=== PATIENT | male | born 1925 | race Caucasian/White ===

== ENCOUNTER 2016-05-10 10:11 | Day surgery (SDC) | payer OTHER ==
[2016-05-10 10:55] VITALS: BMI 17.6
[2016-05-10] MEDS ORDERED: PROPOFOL 20 ML ONE (10:59)
[2016-05-10] MEDS ORDERED: LIDOCAINE HCL/PF 1% SDV 5ML VIAL ONE (10:59)
[2016-05-10 12:00] VITALS: TEMP 97.3
[2016-05-10 12:59] VITALS: BP 123/60; PULSE 58
--- NOTE | 2016-05-11 15:18 | PATH ---
Surgical Pathology Report Patient Name: ESTEFANI CRUZ [facility] Rec. #: [id number] /Age/Gender: 1925 (Age: 89) / M Account: [id number] Location: [facility]-ENDOSCOPY Taken: 05/10/2016 Received: 05/10/2016 Reported: 05/11/2016 Physicians: Chase Goins D.O. Specimen(s) Received A: BX RIGHT COLON B: BX TRANSVERSE COLON C: BX LEFT & SIGMOID COLON D: BX RECTUM Clinical History Intermittent diarrhea, weight loss, family history of colon cancer Diverticulosis, hemorrhoids and diarrhea Final Diagnosis A. COLON, RIGHT, BIOPSY: COLONIC MUCOSA WITH FEW LAMINA PROPRIA NEUTROPHILS, MILD INCREASED IN EOSINOPHILS AND FOCAL MILD CRYPT REGENERATIVE CHANGES (SEE COMMENT). NO EVIDENCE OF GRANULOMATA OR DYSPLASIA; NO EVIDENCE OF MICROSCOPIC COLITIS; NO GIARDIA IDENTIFIED. B. COLON, TRANSVERSE, BIOPSY: COLONIC MUCOSA WITH REACTIVE LYMPHOID AGGREGATE AND FOCAL MILD REGENERATIVE CHANGES (SEE COMMENT). NO EVIDENCE OF ACTIVE INFLAMMATION, GRANULOMATA OR DYSPLASIA; NO EVIDENCE OF MICROSCOPIC COLITIS; NO GIARDIA IDENTIFIED. C. COLON, LEFT AND SIGMOID, BIOPSY: COLONIC MUCOSA WITH FOCAL MILD ACTIVE COLITIS AND FOCAL MILD REGENERATIVE CHANGES (SEE COMMENT). NO EVIDENCE OF GRANULOMAS OR DYSPLASIA; NO EVIDENCE OF MICROSCOPIC COLITIS; NO GIARDIA IDENTIFIED. D. RECTUM, BIOPSY: RECTAL MUCOSA WITH FEW LAMINA PROPRIA NEUTROPHILS AND FOCAL MILD REGENERATIVE CHANGES (SEE COMMENT). NO EVIDENCE OF GRANULOMA OR DYSPLASIA; NO EVIDENCE OF MICROSCOPIC COLITIS; NO GIARDIA IDENTIFIED. Comment: The findings are nonspecific and may represent mild active colitis of various etiologies including infections, drug/toxin injury and peridiverticular inflammation. Idiopathic bowel disease is less likely. No histologic features of microscopic colitis are identified. Clinical, endoscopic correlations and follow up are suggested. Electronically Signed Cameron Conklin M.D. Addendum Reported: 05/15/2016 Addendum Diagnosis Trichrome stain performed and interpreted on block A1 does not show significant increase in collagen thickness, supporting the interpretation above. Cameron Conklin M.D. Gross Description A. Received in formalin, labeled "biopsy right colon" are 3 farrell, irregular portions of soft tissue ranging from 0.1-0.3 cm in greatest dimension. The specimens are submitted in toto in one cassette. B. Received in formalin, labeled "biopsy transverse colon" are 7 farrell, irregular portions of soft tissue ranging from 0.1-0.3 cm in greatest dimension. The specimens are submitted in toto in one cassette. C. Received in formalin, labeled "biopsy left colon" are 6 farrell, irregular portions of soft tissue ranging from 0.1-0.6 cm in greatest dimension. The specimens are submitted in toto in one cassette. D. Received in formalin, labeled "biopsy rectum" are 3 farrell, irregular portions of soft tissue ranging from 0.1-0.4 cm in greatest dimension. The specimens are submitted in toto in one cassette. 05/10/2016 [facility]05/10/2016
== END 2016-05-10 13:05 | disposition home or self-care (01) ==
LOC: JASU-ENDO 10:11
PROVIDERS: ATTEND Internal Medicine Gastroenterology
PROC: 0DBE8ZX Excision of Large Intestine, Via Natural or Artificial Opening Endoscopic, Diagnostic (ICD-10-PCS; principal; 2016-05-10 11:00)
DX: K57.30 Diverticulosis of large intestine without perforation or abscess without bleeding (principal); R19.7 Diarrhea, unspecified; K63.89 Other specified diseases of intestine
CPT/HCPCS: 87045; 87046; 87177; 87207; 87209; 87328; 87329; 88305-TC; 88313-TC

== ENCOUNTER 2016-07-02 17:42 | Emergency (ER) | payer OTHER ==
--- NOTE | 2016-07-02 17:51 | PDOC ---
History of Present Illness - General History Source: Patient, EMS, Spouse, Old Records Exam Limitations: No Limitations <Radha Cowan - Last Filed: 07/02/16 18:33> - General History Source: Patient, EMS, Spouse, Old Records Exam Limitations: No Limitations - History of Present Illness Initial Comments: 07/02/16 18:43 The patient is an 89 year old male, with a significant past medical history of hypertension and persistent diarrhea (since August 2015), who presents to the emergency department via EMS with right hip pain s/p an unwitnessed fall at approximately 3AM this morning. The patients is at the bedside. She states that she heard the patient call out to her at approximately 3AM this morning that he had fallen and was injured. The patients immediately got out of bed and found the patient on the floor. The patient uses a cane to ambulate at baseline, but his reports that he was not using it early this morning before he fell. The patients reports that the patient has been feeling generally weak over the past couple of days, with a decreased appetite. She additionally reports that the patient has been experiencing intermittent persistent diarrhea since August 2015, for which the patient has been worked up for with an unclear origin. The patient denies chest pain or shortness of breath. The patient denies fever, chills, nausea or vomiting. Allergies: None reported. Past Surgical History: Left Hip Pinning. Social History: Non smoker. Denies alcohol or drug use. 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 <Lyudmila Matt - Last Filed: 07/02/16 18:45> - General Chief Complaint: Injury Stated Complaint: FALL Time Seen by Provider: 07/02/16 17:51 Past History - Past Medical History Anemia: No Asthma: No Cancer: No Cardiac Disorders: No CVA: No COPD: No CHF: No Dementia: No Diabetes: No GI Disorders: Yes (DIARRHEA) Disorders: No HTN: Yes Hypercholesterolemia: No Liver Disease: No Suicide Attempt (Hx): No Seizures: No Thyroid Disease: No - Surgical History Abdominal Surgery: No Appendectomy: No Cardiac Surgery: No Cholecystectomy: No Lung Surgery: No Orthopedic Surgery: Yes (LEFT HIP PINNING) - Psycho/Social/Smoking Cessation Hx Anxiety: No Suicidal Ideation: No Smoking History: Never smoked Have you smoked in the past 12 months: No Hx Alcohol Use: No Drug/Substance Use Hx: No Substance Use Type: None <Radha Cowan - Last Filed: 07/02/16 18:33> <Lyudmila Matt - Last Filed: 07/02/16 18:45> - Past Medical History Allergies/Adverse Reactions: Allergies Allergy/AdvReac Type Severity Reaction Status Date / Time No Known Allergies Allergy Verified 04/15/14 11:09 Home Medications: Ambulatory Orders Triamterene [Dyrenium -] 50 mg PO Q48H 04/05/14 Multivitamins [Multivit ([facility] Formulary)] 1 tab PO DAILY 04/30/16 Review of Systems - Review of Systems Able to Perform ROS?: Yes Comments:: 07/02/16 18:40 GENERAL/CONSTITUTIONAL: +Generalized weakness, decreased appetite. No fever or chills. HEAD, EYES, EARS, NOSE AND THROAT: No change in vision. No ear pain or discharge. No sore throat. CARDIOVASCULAR: No chest pain or shortness of breath. RESPIRATORY: No cough, wheezing, or hemoptysis. GASTROINTESTINAL: No nausea, vomiting, diarrhea or constipation. GENITOURINARY: No dysuria, frequency, or change in urination. MUSCULOSKELETAL: +Right hip pain. No muscle swelling or pain. No neck or back pain. SKIN: No rash. NEUROLOGIC: No headache, vertigo, loss of consciousness, or change in strength/ sensation. ENDOCRINE: No increased thirst. No abnormal weight change. HEMATOLOGIC/LYMPHATIC: No anemia, easy bleeding, or history of blood clots. ALLERGIC/IMMUNOLOGIC: No hives or skin allergy. <Lyudmila Matt - Last Filed: 07/02/16 18:45> *Physical Exam - Physical Exam Comments: 07/02/16 18:44 GENERAL: Awake, alert, and fully oriented, in no acute distress. HEAD: No signs of trauma. EYES: PERRLA, EOMI, sclera anicteric, conjunctiva clear. ENT: Dry oral mucosa. Auricles normal inspection, hearing grossly normal, nares patent, oropharynx clear without exudates. NECK: Normal ROM, supple, no lymphadenopathy, JVD, or masses. LUNGS: Diffuse expiratory wheezing in all lung velásquez. Breath sounds equal, bilaterally. No crackles. HEART: Regular rate and rhythm, normal S1 and S2, no murmurs, rubs or gallops. ABDOMEN: Soft, nontender, normoactive bowel sounds. No guarding, no rebound. No masses. EXTREMITIES: Bruising to the left middle and pointer fingers in addition to the left thenar region. Full ROM. Poor toe hygiene. Normal range of motion, no edema. No clubbing or cyanosis. No cords, erythema, or tenderness. NEUROLOGICAL: Cranial nerves II through XII intact. Normal speech, gait deferred. SKIN: Poor skin turgor. Warm, dry, no rashes or lesions noted. <Lyudmila Matt - Last Filed: 07/02/16 18:45> Medical Decision Making - Medical Decision Making 07/02/16 18:33 89-year-old male with history of chronic diarrhea presents the emergency department following a fall at 3am this morning and signs of external trauma to his left hand that he complaints of right hip pain. Differential diagnosis includes but is not limited to: Fracture, contusion, dehydration, infection ( pneumonia versus UTI), electrolyte abnormality, toxic/metabolic derangement, atypical presentation of ACS. Plan: 1. EKG 2. Labs 3. Urine analysis 4. Chest x-ray, left hand film, pelvis and hip pain films 5. IV fluids for hydration 6. Observe and reevaluate <Radha Cowan - Last Filed: 07/02/16 18:33> *DC/Admit/Observation/Transfer - Attestations Physician Attestion: 07/02/16 18:35 I, Dr. Radha Cowan, attest that the scribes documentation that appears above has been prepared under my direction and personally reviewed by me in its entirety. I confirmed that the note above accurately reflects all work, treatment, procedures, and medical decision-making performed by me. <Radha Cowan - Last Filed: 07/02/16 18:33> - Attestations Scribe Attestion: 07/02/16 17:59 Documentation prepared by Lyudmila Matt, acting as biomedical field service engineer for Radha Cowan MD. <Lyudmila Matt - Last Filed: 07/02/16 18:45> Diagnosis at time of Disposition: Multiple contusions, Fall
[2016-07-02] MEDS ORDERED: ALBUTEROL SO4 2.5/IPRATROPIUM 0.5 INH SOL 3 ML VIAL.NEB. NEB ONE (18:37)
[2016-07-02 18:53] VITALS: BMI 18.2
--- NOTE | 2016-07-02 19:27 | PDOC ---
*Physical Exam - Vital Signs Last Vital Signs Temp Pulse Resp BP Pulse Ox 98.4 F 81 18 106/82 97 07/02/16 17:42 07/02/16 17:42 07/02/16 17:42 07/02/16 17:42 07/02/16 17:42 ED Treatment Course - LABORATORY CBC & Chemistry Diagram: 07/02/16 07:50 07/02/16 07:50 Progress Note - Progress Note Progress Note: Care of this patient was transferred to ri from Dr. Cowan at 1900 hrs. 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 Patient has a complete workup pending including labs x-rays. Assessment and plan: This is an 89-year-old female who comes in with his for evaluation status post fall approximately 15 hours prior to coming into the emergency room. Patient and his decided they do longer wanted to stay and wanted to leave AGAINST MEDICAL ADVICE. Prior to completion of the workup. Patient's labs are still pending as well as his x-rays. Patient was told that his EKG was abnormal and that he needed to be admitted as I was concerned that this could've been a syncopal event. Patient refused admission. Both patient and his understood the risks of leaving AGAINST MEDICAL ADVICE including heart attack, stroke, permanent disability or . Patient still wanted to sign out AGAINST MEDICAL ADVICE. Patient was told that if he should change his mind he should return to the emergency room or go any other emergency room immediately. *DC/Admit/Observation/Transfer Diagnosis at time of Disposition: Multiple contusions, Abnormal resting ECG findings Fall Qualifiers: Encounter type: initial encounter Qualified Code(s): W19.XXXA - Unspecified fall, initial encounter - Discharge Dispostion Disposition: AGAINST MEDICAL ADVICE Condition at time of disposition: Guarded - Patient Instructions Additional Instructions: You are leaving AGAINST MEDICAL ADVICE. By leaving AGAINST MEDICAL ADVICE your accepting responsibility for anything that may happen to you medically after you leave the emergency room. It is suggested that you stay and be admitted for a cardiac workup and additional monitoring as you to have an abnormal cardiogram. Your labs are not back including her troponin level and your x-rays have not been read by the radiologist at the time of your leaving AGAINST MEDICAL ADVICE. I leaving admitted AGAINST MEDICAL ADVICE you are at risk of a heart attack, stroke, permanent disability and . By leaving AGAINST MEDICAL ADVICE you understand these risks and accepted them. Return to the emergency department immediately with ANY new, persistent or worsening symptoms. Continue any medications as previously prescribed by your physician. You should follow up with your primary doctor as soon as possible regarding today's emergency department visit. . Please make sure your doctor reviews the results of your emergency evaluation. Thank you for coming to the Emergency Department today for your care. It was a pleasure to see you today. Please note that your evaluation is INCOMPLETE until you follow-up with your doctor.
[2016-07-02 20:03] LABS: PH,URINE 7.5 (4.5-8); URINE APPEARANCE Clear; URINE BILIRUBIN Negative (NEGATIVE); URINE BLOOD Trace-lysed (NEGATIVE); URINE GLUCOSE (UA) Negative (NEGATIVE); URINE KETONE Trace (NEGATIVE); URINE LEUK ESTERASE Negative (NEGATIVE); URINE NITRITE Negative (NEGATIVE); URINE UROBILINOGEN 0.2 E.U/dl (0.2-1.0)
[2016-07-02 20:04] LABS: URINE COLOR YELLOW; URINE PROTEIN 1+ (NEGATIVE)
[2016-07-02 20:10] LABS: MCH 32.2 pg (25.7-33.7); MCHC 34.3 g/dl (32.0-35.9); MEAN CELL VOLUME 93.9 fl (80-96); MEAN PLT VOLUME 10.2 fl (7.5-11.1); NEUTROPHILS 82.9 % (42.8-82.8); PLATELET COUNT 177 K/MM3 (134-434); RDW 12.1 % (11.9-15.9); WHITE BLOOD COUNT 9.2 K/mm3 (4.0-10.8)
[2016-07-02 20:17] LABS: URINE BACTERIA FEW /hpf (NEGATIVE); URINE WBC 0-2 (3-5)
[2016-07-02 20:20] LABS: ALBUMIN 3.8 g/dl (3.5-5.0); ALK PHOS 117 U/L (32-92); ANION GAP 9 (8-16); BILIRUBIN,TOTAL 1.4 mg/dl (0.2-1.0); CO2 26 mmol/L (22-28); CREATININE 1.5 mg/dl (0.6-1.3); GLUCOSE,RANDOM 105 mg/dl (74-106); MAGNESIUM 1.9 mg/dL (1.8-2.4); PHOSPHOROUS 3.2 mg/dl (2.5-4.6); SGOT/AST 27 U/L (10-42); SGPT/ALT 16 U/L (10-40); TOT PROT 7.2 g/dl (6.4-8.3)
[2016-07-02 20:22] LABS: CPK(DFH) 73 IU/L (38-174)
[2016-07-02 21:11] LABS: TROPONIN I (DFP) < 0.03 ng/ml (0.03-0.50)
[2016-07-02 21:22] VITALS: BP 122/58; PULSE 76; TEMP 98.1
--- NOTE | 2016-07-03 09:05 | PDOC ---
Patient Follow-up (Call Back) - Post ED Follow - Up Condition at time of discharge: Guarded Disposition at time of original discharge: AGAINST MEDICAL ADVICE Reason for Call Back: Radiology (Patient's contacted by phone at . Patient was currently asleep. She states she is doing well. She was informed of the abnormalities of the hip and pelvis visualized on x-ray. She is aware of these findings, has an x-ray report, and is planning to consult the patient's physician this week. The patient is fully ambulatory and is reportedly not experiencing symptoms of a hip or pelvic fracture.)
--- NOTE | 2016-07-03 13:16 | EKG ---
Test Reason : Blood Pressure : / mmHG Vent. Rate : 080 BPM Atrial Rate : 080 BPM P-R Int : 254 ms QRS Dur : 136 ms QT Int : 420 ms P-R-T Axes : 045 104 000 degrees QTc Int : 484 ms SINUS RHYTHM WITH MARKED SINUS ARRHYTHMIA WITH 1ST DEGREE A-V BLOCK WITH FREQUENT PREMATURE VENTRICULAR COMPLEXES RIGHT BUNDLE BRANCH BLOCK ABNORMAL ECG NO PREVIOUS ECGS AVAILABLE BASELINE ARTIFACT Confirmed by SARAH CHRISTIANSON, ARACELI ([id number]) on 07/03/2016 1:16:22 PM Referred By: ZIGGY Confirmed By:ARACELI SMITH MD
== END 2016-07-02 21:23 | disposition left against medical advice (07) ==
LOC: FER 17:42
PROC: 3E0F7GC Introduction of Other Therapeutic Substance into Respiratory Tract, Via Natural or Artificial Opening (ICD-10-PCS; principal; 2016-07-02)
DX: T14.8 Other injury of unspecified body region (principal); W06.XXXA Fall from bed, initial encounter; Y93.89 Activity, other specified; Y92.003 Bedroom of unspecified non-institutional (private) residence as the place of occurrence of the external cause; Z96.641 Presence of right artificial hip joint
CPT/HCPCS: 36415; 71020-TC; 73130-TC-LT; 73523-TC; 80053; 81003; 81015; 82550; 83690; 83735; 84100; 84484; 85025; 93005; 94640; 99281-25

== ENCOUNTER 2016-07-04 19:00 | Observation (INO) | payer OTHER ==
[2016-07-04 19:22] VITALS: BMI 18.2
--- NOTE | 2016-07-04 19:39 | PDOC ---
History of Present Illness - General History Source: Patient Exam Limitations: No Limitations - History of Present Illness Initial Comments: 07/04/16 19:39 The patient is a 89 year old male, BIBA with a significant past medical history of HTN and chronic diarrhea, who presents to the emergency department with weakness and RLE pain s/p fall 2 days ago. The patient reports recently falling , but is unsure of the details. He does note during his recent falling hitting his legs and since has had trouble walking. He denies any LOC or head trauma. Patient is a poor historian and has trouble remembering specific details of his history. The also reports the patient was confused today questioning where he was located. She also notes the patient having a decreased appetite. He denies any recent fevers, chills, headache or dizziness. He denies any recent nausea, vomit, or constipation. He denies any recent chest pain or shortness of breath. He denies any recent dysuria, urgency or hematuria. Patient was last seen here on 07/02/16 s/p fall where he left AMA after having an abnormal EKG reading. Allergies: NKA Past surgical history: Left hip pinning Social History: Nonsmoker. Denies EtOH use and recreational drug use. Primary Care Physician: <Darrell Meade - Last Filed: 07/04/16 21:43> <Yumi Colon - Last Filed: 07/05/16 02:37> - General Chief Complaint: Lethargy Stated Complaint: WEAKNESS Time Seen by Provider: 07/04/16 19:19 Past History <Darrell Meade - Last Filed: 07/04/16 21:43> - Past Medical History Anemia: No Asthma: No Cancer: No Cardiac Disorders: No CVA: No COPD: No CHF: No Dementia: No Diabetes: No GI Disorders: Yes (DIARRHEA) Disorders: No HTN: Yes Hypercholesterolemia: No HIV: No Liver Disease: No Psychiatric Problems: No Suicide Attempt (Hx): No Seizures: No Thyroid Disease: No Lung CA: No - Surgical History Abdominal Surgery: No Appendectomy: No Cardiac Surgery: No Cholecystectomy: No Lung Surgery: No Orthopedic Surgery: Yes (LEFT HIP PINNING) - Psycho/Social/Smoking Cessation Hx Anxiety: No Suicidal Ideation: No Smoking History: Never smoked Have you smoked in the past 12 months: No Hx Alcohol Use: No Drug/Substance Use Hx: No Substance Use Type: None <IsaiahYumi Nahid - Last Filed: 07/05/16 02:37> - Past Medical History Allergies/Adverse Reactions: Allergies Allergy/AdvReac Type Severity Reaction Status Date / Time No Known Allergies Allergy Verified 07/04/16 19:12 Home Medications: Ambulatory Orders NK [No Known Home Medication] 07/02/16 Review of Systems - Review of Systems All Other Systems: Reviewed and Negative <Darrell Meade - Last Filed: 07/04/16 21:43> *Physical Exam - Vital Signs Last Vital Signs Temp Pulse Resp BP Pulse Ox 97.4 F L 72 16 173/93 98 07/04/16 19:20 07/04/16 19:20 07/04/16 19:20 07/04/16 19:20 07/04/16 19:20 - Physical Exam Comments: 07/04/16 19:40 GENERAL: The patient is awake, alert, responsive, poor historian, in no acute distress. Cac[place]. HEAD: Normal with no signs of trauma. EYES: Pupils equal, round and reactive to light, extraocular movements intact, sclera anicteric, conjunctiva clear with no pallor. ENT: Ears normal, nares patent, oropharynx clear without exudates. Dry mucous membranes. NECK: Normal range of motion, supple without lymphadenopathy, JVD, or masses. LUNGS: Breath sounds equal, clear to auscultation bilaterally. No wheeze/ crackles. HEART: Regular rate and rhythm, normal S1 and S2 without murmur or rub. ABDOMEN: LUQ tenderness without peritoneal signs. Soft/nondistended. BS wnl. No guarding or rebound. No palpable masses. No hepatosplenomegaly. EXTREMITIES: Trace ankle edema bilaterally. Tenderness on palpation of right anterior pelvis. No other significant extremity tenderness. NEUROLOGICAL: Cranial nerves II through XII grossly intact. Normal speech. PSYCH: Normal mood, normal affect. SKIN: Warm, Dry, normal turgor, no rashes or lesions noted. <Darrell Meade - Last Filed: 07/04/16 21:43> - Vital Signs Last Vital Signs Temp Pulse Resp BP Pulse Ox 97.4 F L 72 16 173/93 98 07/04/16 19:20 07/04/16 19:20 07/04/16 19:20 07/04/16 19:20 07/04/16 19:20 <Yumi Colon - Last Filed: 07/05/16 02:37> ED Treatment Course - LABORATORY CBC & Chemistry Diagram: 07/04/16 20:01 07/04/16 20:01 <Darrell Meade - Last Filed: 07/04/16 21:43> - LABORATORY CBC & Chemistry Diagram: 07/04/16 20:01 07/04/16 20:01 <Yumi Colon - Last Filed: 07/05/16 02:37> Medical Decision Making - Medical Decision Making Documentation has been prepared under my direction and personally reviewed by me in its entirety. I attest that this documented accurately reflects all work, treatment, procedures and medical decision making performed by me. 07/04/16 21:46 As noted above, this 89-year-old man(poor historian) with a history of hypertension returns to the ER by ambulance with persistent pain on ambulation, weakness and new history of confusion. Patient was seen here 2 days ago after a fall; because of abnormal EKG, syncopal episode could not be ruled out. Admission was planned but patient signed out AMA. Since then, according to the patient's , the patient has continued to be weak and generally confined to his bed. Oral intake has been poor. Patient states that he attempted to walk today but was unable to[patient states that he had right lower extremity pain but also was too weak to ambulate]. This afternoon, patient's noted that the patient was confused (for example, asking where he was). This is new for the patient, according to his . Exam as noted. Twelve-lead electrocardiogram shows sinus rhythm at 75 beats per minute.. First -degree AV block is present as it was on 07/02. Right bundle branch block also present as previously. No acute ST or T-wave abnormalities. There is no significant change from EKG on 07/02/16 Laboratory evaluation shows mild elevation of BUN and creatinine (creatinine of 1.4) comparable to values obtained on 07/02/16. Alkaline phosphatase is moderately elevated without other abnormality of bilirubin or LFTs. There is no elevation of white blood cell count or other abnormality of CBC. Urinalysis essentially normal. Cardiac enzymes are nonelevated. Because the patient has had an altered mental status in the last 24 hours, noncontrast head CT was performed. This shows no evidence of acute intracranial pathology. Right hip/pelvis x-ray repeated (original 07/02 had questionable fracture of right pubic ramus) because of persistent pain with ambulation. Again, mention of step off in the right inferior pubic ramus is made but no new fracture or dislocation. Patient reexamined: He still has significant tenderness in the left side of his abdomen,noted on original exam. Noncontrast abdominal/pelvic CT performed. Abdominal/pelvic CT reveals nonobstructed gaseous pattern of transverse colon but no obstructive or inflammatory process present. There are no other abdominal masses, adenopathy or collection. Gait testing performed: Patient has shuffling,halting gait with full assistance. Unable to ambulate without assistance. In light of patient's deteriorating gait and altered mental status today, with only other presence at home being his equally frail,elderly , the patient is at very high risk for falling again. 07/05/16 01:[address] Rivera. Patient will be admitted under observation status for evaluation and treatment of his gait disorder/altered mental status. 07/05/16 02:15 Measurement of orthostatic blood pressure/heart rate attempted: While seated, patient's blood pressure was 122/90 with a heart rate of 70. Patient did not tolerate standing position and he was placed back in seated position . For a brief period of time after resuming seated position, patient's heart rate was elevated to 120s, whether related to discomfort and/or volume depletion Patient placed back in supine position on stretcher. Twelve-lead EKG repeated. This shows sinus rhythm with first-degree AV block at [address] or T-wave abnormalities. It is essentially unchanged from previous EKG. Patient given a small bolus of normal saline IV (250 mL) 07/05/16 02:[address] Rivera. Patient to be have telemetry monitoring <Yumi Colon - Last Filed: 07/05/16 02:37> *DC/Admit/Observation/Transfer - Attestations Scribe Attestion: 07/04/16 19:40 Documentation prepared by Darrell Meade, acting as ophthalmic medical assistant for Yumi Colon MD. <Darrell Meade - Last Filed: 07/04/16 21:43> - Discharge Dispostion Admit: Yes <Yumi Colon - Last Filed: 07/05/16 02:37> Diagnosis at time of Disposition: Gait disorder Altered mental status Qualifiers: Altered mental status type: disorientation Qualified Code(s): R41.0 - Disorientation, unspecified - Discharge Dispostion Condition at time of disposition: Guarded
[2016-07-04 20:13] LABS: INR 0.98 (0.82-1.09); PH,URINE 7.5 (4.5-8); URINE APPEARANCE Clear; URINE BILIRUBIN Negative (NEGATIVE); URINE BLOOD Trace-intact (NEGATIVE); URINE GLUCOSE (UA) Negative (NEGATIVE); URINE KETONE Negative (NEGATIVE); URINE LEUK ESTERASE Negative (NEGATIVE); URINE NITRITE Negative (NEGATIVE); URINE UROBILINOGEN 0.2 E.U/dl (0.2-1.0)
[2016-07-04 20:14] LABS: URINE COLOR YELLOW; URINE PROTEIN 2+ (NEGATIVE)
[2016-07-04 20:19] LABS: CPK(DFH) 99 IU/L (38-174)
[2016-07-04 20:20] LABS: ALBUMIN 3.9 g/dl (3.5-5.0); ALK PHOS 136 U/L (32-92); ANION GAP 12 (8-16); BILIRUBIN,TOTAL 1.5 mg/dl (0.2-1.0); CALCIUM 8.9 mg/dl (8.4-10.2); CO2 26 mmol/L (22-28); CREATININE 1.4 mg/dl (0.6-1.3); GLUCOSE,RANDOM 114 mg/dl (74-106); SGOT/AST 28 U/L (10-42); SGPT/ALT 15 U/L (10-40); TOT PROT 7.8 g/dl (6.4-8.3)
[2016-07-04 20:30] LABS: MCH 32.5 pg (25.7-33.7); MCHC 34.6 g/dl (32.0-35.9); MEAN CELL VOLUME 93.9 fl (80-96); MEAN PLT VOLUME 10.1 fl (7.5-11.1); PLATELET COUNT 214 K/MM3 (134-434); RDW 12.1 % (11.9-15.9); WHITE BLOOD COUNT 10.2 K/mm3 (4.0-10.8)
[2016-07-04 20:41] LABS: TROPONIN I (DFP) < 0.03 ng/ml (0.03-0.50)
[2016-07-04 20:42] LABS: URINE BACTERIA FEW /hpf (NEGATIVE); URINE RBC 0-2 /hpf (0-3); URINE WBC 0-2 (3-5)
[2016-07-05] MEDS ORDERED: SODIUM CHLORIDE 250 ML IV STA (02:17)
--- NOTE | 2016-07-05 07:20 | HP ---
[id number] ILLNESS: Patient is a 89 year old male, with a past medical history of HTN and chronic diarrhera. Patient is s/p unwitnessed fall on 07/02/16. He is unable to recall the full events of the incident. He was evaluated in the emergency department on 07/03/16 and was noted to have abnormal EKG findings. Observation admission was recommended, however, patient declined and he was discharged against medical advice. Patient is a poor historian and he reports the inabliity to bear weight upon his right lower extremity due to the pain. His is at the bedside and is a poor historian. She reports patient has ongoing weakness for the past 48 hours. ER course was notable for: (1) head CT chronic microvascular ischemic changes no acute pathology. (2) right hip/pelvis xray: questionable fracture of right inferior pubic ramus (3) EKG first degree AV block with Right bundle branch block (4) ct of abd/pelvis w/o contrast, non obstructed gas pattern Recent Travel: none PAST MEDICAL HISTORY: hypertension and chronic diarherra PAST SURGICAL HISTORY: left hip pinning Social History: resides with Smoking: none Alcohol:none Drugs: none Family History: non contributory Allergies No Known Allergies Allergy (Verified 07/04/16 19:12) HOME MEDICATIONS: Home Medications Medication Instructions Recorded NK [No Known Home Medication] 07/02/16 REVIEW OF SYSTEMS CONSTITUTIONAL: Absent: fever, chills, diaphoresis, generalized weakness, malaise, loss of appetite, weight change HEENT: Absent: rhinorrhea, nasal congestion, throat pain, throat swelling, difficulty swallowing, mouth swelling, ear pain, eye pain, visual changes CARDIOVASCULAR: Absent: chest pain, syncope, palpitations, irregular heart rate, lightheadedness , peripheral edema RESPIRATORY: Absent: cough, shortness of breath, dyspnea with exertion, orthopnea, wheezing, stridor, hemoptysis GASTROINTESTINAL: Absent: abdominal pain, abdominal distension, nausea, vomiting, diarrhea, constipation, melena, hematochezia GENITOURINARY: Absent: dysuria, frequency, urgency, hesitancy, hematuria, flank pain, genital pain MUSCULOSKELETAL: Present: right lower extremity pain Absent: myalgia, arthralgia, joint swelling, back pain, neck pain SKIN: Absent: rash, itching, pallor HEMATOLOGIC/IMMUNOLOGIC: Absent: easy bleeding, easy bruising, lymphadenopathy, frequent infections ENDOCRINE: Absent: unexplained weight gain, unexplained weight loss, heat intolerance, cold intolerance NEUROLOGIC: Absent: headache, focal weakness or paresthesias, dizziness, unsteady gait, seizure, mental status changes, bladder or bowel incontinence PSYCHIATRIC: Absent: anxiety, depression, suicidal or homicidal ideation, hallucinations. PHYSICAL EXAMINATION GENERAL: cachectic, Awake, alert, and oriented x 2, in no acute distress. HEAD: Normal with no signs of trauma. EYES: Pupils equal, round and reactive to light, extraocular movements intact, sclera anicteric, conjunctiva clear. No lid lag. EARS, NOSE, THROAT: Ears normal, nares patent, oropharynx clear without exudates. dry mucous membranes. NECK: Normal range of motion, supple without lymphadenopathy, JVD, or masses. LUNGS: Breath sounds equal, clear to auscultation bilaterally. No wheezes, and no crackles. No accessory muscle use. HEART: Regular rate and rhythm, normal S1 and S2 without murmur, rub or gallop. ABDOMEN: Soft, nontender, not distended, normoactive bowel sounds, no guarding, no rebound, no masses. No hepatomegaly or splenomegaly. MUSCULOSKELETAL: pain upon PROM to right proximal thigh, pain upon palpation to right anterior pelvis. no echymosis noted, no lower extremity rotation or shortening. No CVA tenderness. UPPER EXTREMITIES: 2+ pulses, warm, well-perfused. No cyanosis. No clubbing. No peripheral edema. LOWER EXTREMITIES: 2+ pulses, warm, well-perfused. No calf tenderness. No peripheral edema. NEUROLOGICAL: Cranial nerves II-XII intact. Normal speech. Normal gait. PSYCHIATRIC: Cooperative. Good eye contact. Appropriate mood and affect. SKIN: Warm, dry, normal turgor, no rashes or lesions noted, normal capillary refill. ASSESSMENT/PLAN: 1) ortho right lower extremity pain - xray of right hip/pelvis reviewed, questionable right pelvic rami fracture, upon exam pain is noted to right proximal femur, will order MRI of right lower extremity - prn pain medication - appreciate ortho input 2)card abnormal EKG - repeat EKG 0700, first-degree AV block with PVCs, right bundle branch block unchanged from EKG 07/04/2016, change from prior ekg obtained from private home staging specialist 08/31/2015 - troponin x 2 WNL questionable syncopal episode - pt sustained an unwitnessed fall on 07/02/2016, unknown syncopal episode pending echo today, Echo report obtained from August 2015 EF 70%, mild aortic stenosis - Continuous cardiac monitoring - Appreciate input of cardiology ([facility]) hypertension - no home medications, BP at goal 3) neph acute on chronic renal insufficiency - creatinine 1.5, baseline 1.1, CRIS likely secondary to dehydration - repeat BMP in the a.m. F/E/N - regular diet - Dietary consult - Replete magnesium PPX - Heparin - zantac - scd dispo: requires telemetry observation. Visit type - Emergency Visit Emergency Visit: Yes ED Registration Date: 07/05/16 Care time: The patient presented to the Emergency Department on the above date and was hospitalized for further evaluation of their emergent condition. - New Patient This patient is new to me today: No - Critical Care Critical Care patient: No
[2016-07-05 08:50] LABS: BASOPHIL 0.2 % (0-2.0); EOSINOPHIL 0.5 % (0-4.5); MCH 31.4 pg (25.7-33.7); MCHC 33.6 g/dl (32.0-35.9); MEAN CELL VOLUME 93.4 fl (80-96); MEAN PLT VOLUME 9.5 fl (7.5-11.1); NEUTROPHILS 85.1 % (42.8-82.8); PLATELET COUNT 190 K/MM3 (134-434); RDW 12.1 % (11.9-15.9)
[2016-07-05 08:58] LABS: ALBUMIN 3.6 g/dl (3.5-5.0); ALK PHOS 118 U/L (32-92); ANION GAP 10 (8-16); BILIRUBIN,TOTAL 1.3 mg/dl (0.2-1.0); CALCIUM 9.1 mg/dl (8.4-10.2); CO2 24 mmol/L (22-28); CPK(DFH) 89 IU/L (38-174); CREATININE 1.5 mg/dl (0.6-1.3); GLUCOSE,RANDOM 99 mg/dl (74-106); MAGNESIUM 1.7 mg/dL (1.8-2.4); PHOSPHOROUS 4.3 mg/dl (2.5-4.6); SGOT/AST 21 U/L (10-42); SGPT/ALT 15 U/L (10-40)
[2016-07-05] MEDS ORDERED: D5-NS + 20 MEQ KCL - 1,000 ML IV SCH (09:00)
[2016-07-05 09:09] LABS: TROPONIN I (DFP) < 0.03 ng/ml (0.03-0.50)
[2016-07-05] MEDS ORDERED: MAGNESIUM SULFATE 2 GM in SODIUM CHLORIDE 100 ML IVPB ONE (09:11)
[2016-07-05] MEDS ORDERED: MAGNESIUM SULF 50% (8.12 MEQ/2 ML-1 GM VIAL) IVPB ONE (09:45)
[2016-07-05] MEDS: HEPARIN NA (PORCINE) 5,000 UNITS/ML 1ML VIAL SQ SCH ×2 (10:11→21:47)
[2016-07-05] MEDS: RANITIDINE HCL 150 MG TABLET (FP) PO SCH (10:11)
[2016-07-05] MEDS: morphine CARPU-JECT 2 MG/1 ML DISP.SYRIN IVPUSH PRN ×2 (14:03→20:23)
--- NOTE | 2016-07-05 15:28 | CON.CARD ---
Consult Consult Specialty:: Cardiology Referred by:: Hospitalist Medicine Reason for Consultation:: s/p fall, aortic stenosis - History of Present Illness Chief Complaint: Post fall History of Present Illness: The patient is a 89 year old male, BIBA with a significant past medical history of HTN and mild per 2016 office echo, who presents to the emergency department with weakness and RLE pain s/p fall 2 days ago with consequent gait disturbance and difficulty bearing weight for which he is unsure of the details. He denies any LOC or head trauma. Patient is a poor historian and has trouble remembering specific details of his history. also notes the patient having a decreased appetite. He denies any recent fevers, chills, headache or dizziness. He denies any recent nausea, vomit, or constipation. He denies any recent chest pain or shortness of breath, palpitations, near or true syncope, orthopnea, PND or LE edema. He denies any recent dysuria, urgency or hematuria. Patient was last seen here on 07/02/16 s/p fall where he left AMA after having an abnormal EKG reading. Allergies: NKA Past surgical history: Left hip pinning Social History: Nonsmoker. Denies EtOH use and recreational drug use. Primary Care Physician: - History Source History Provided By: Medical Record Limitations to Obtaining History: Poor Historian - Alcohol/Substance Use Hx Alcohol Use: No - Smoking History Smoking history: Never smoked Have you smoked in the past 12 months: No Home Medications - Allergies Allergies/Adverse Reactions: Allergies Allergy/AdvReac Type Severity Reaction Status Date / Time No Known Allergies Allergy Verified 07/04/16 19:12 - Home Medications Home Medications: Ambulatory Orders NK [No Known Home Medication] 07/02/16 Review of Systems Unable to obtain ROS, reason: Poor historian Vital Signs: Vital Signs Temperature 97.4 F L 07/05/16 02:39 Pulse Rate 74 07/05/16 02:39 Respiratory Rate 16 07/05/16 02:39 Blood Pressure 124/81 07/05/16 02:39 O2 Sat by Pulse Oximetry (%) 96 07/05/16 07:43 Constitutional: Yes: No Distress, Calm Neck: Yes: Supple Respiratory: Yes: Regular, Diminished Gastrointestinal: Yes: Normal Bowel Sounds, Soft Cardiovascular: Yes: Regular Rate and Rhythm JVD: No Carotid Bruit: No Heart Sounds: Yes: S1, S2 Murmur: Yes: Systolic Murmur, Grade 2 Edema: No - Other Data Labs, Other Data: CBC, BMP 07/05/16 08:27 07/05/16 08:27 INR, PTT INR 0.98 (0.82-1.09) 07/04/16 20:01 Troponin, BNP 07/05/16 08:27 Troponin I < 0.03 L Troponin, BNP 07/05/16 08:27 Troponin I < 0.03 L NSR @ 75 1st deg AVB, PAC, RBBB Echo: Report Reviewed Ejection Fraction %: LVEF > or = 40 % Imaging - Results Chest X-ray: Report Reviewed (NAD) Cat Scan: Report Reviewed (HCT: No sig bleed or stroke) Problem List - Problems (1) Gait disorder Code(s): R26.9 - UNSPECIFIED ABNORMALITIES OF GAIT AND MOBILITY (2) Fall Code(s): W19.XXXA - UNSPECIFIED FALL, INITIAL ENCOUNTER Qualifiers: Encounter type: initial encounter Qualified Code(s): W19.XXXA - Unspecified fall, initial encounter (3) Aortic stenosis, mild Code(s): I35.0 - NONRHEUMATIC AORTIC (VALVE) STENOSIS (4) Right bundle branch block Code(s): I45.10 - UNSPECIFIED RIGHT BUNDLE-BRANCH BLOCK (5) Chronic kidney disease (CKD) Code(s): N18.9 - CHRONIC KIDNEY DISEASE, UNSPECIFIED Qualifiers: Chronic kidney disease stage: stage 2 (mild) Qualified Code(s): N18.2 - Chronic kidney disease, stage 2 (mild) Assessment/Plan 1. Post fall, denies syncope, r/o right pelvic rami fracture 2. RBBB 3. Mild aortic valve stenosis 4. Acute on CKD (pre-renal) P:1. IV hydration with monitor renal recovery, analgesia as needed 2. F/u echo to assess aortic stenosis progression 3. F/u pelvic MRI 4. DVT and GI prophylaxis 5. Thank you for consultative opportunity
--- NOTE | 2016-07-05 15:43 | EKG ---
Test Reason : Blood Pressure : / mmHG Vent. Rate : 087 BPM Atrial Rate : 087 BPM P-R Int : 266 ms QRS Dur : 130 ms QT Int : 418 ms P-R-T Axes : -02 110 037 degrees QTc Int : 502 ms Suspect unspecified pacemaker failure SINUS RHYTHM WITH SINUS ARRHYTHMIA WITH 1ST DEGREE A-V BLOCK WITH FREQUENT PREMATURE VENTRICULAR COMPLEXES RIGHT BUNDLE BRANCH BLOCK WHEN COMPARED WITH ECG OF 05-JUL-2016 02:08, COMPARED TO EKG NO SIGNIFICANT CHANGE IS FOUND Confirmed by MD JESUS, TIERA ([id number]) on 07/05/2016 3:43:40 PM Referred By: JHOANA DAI Confirmed By:TIERA LEE MD
--- NOTE | 2016-07-05 15:44 | EKG ---
Test Reason : Blood Pressure : / mmHG Vent. Rate : 075 BPM Atrial Rate : 075 BPM P-R Int : 246 ms QRS Dur : 128 ms QT Int : 418 ms P-R-T Axes : 076 108 039 degrees QTc Int : 466 ms POOR DATA QUALITY, INTERPRETATION MAY BE ADVERSELY AFFECTED SINUS RHYTHM WITH 1ST DEGREE A-V BLOCK WITH PREMATURE SUPRAVENTRICULAR COMPLEXES RIGHT BUNDLE BRANCH BLOCK WHEN COMPARED WITH ECG OF 02-JUL-2016 20:14, PREMATURE VENTRICULAR COMPLEXES ARE NO LONGER PRESENT PREMATURE SUPRAVENTRICULAR COMPLEXES ARE NOW PRESENT NONSPECIFIC T WAVE ABNORMALITY HAS REPLACED INVERTED T WAVES IN INFERIOR LEADS T WAVE INVERSION NO LONGER EVIDENT IN ANTERIOR LEADS Confirmed by MD JESUS, TIERA ([id number]) on 07/05/2016 3:44:14 PM Referred By: BAEN Confirmed By:TIERA LEE MD
--- NOTE | 2016-07-05 15:44 | EKG ---
Test Reason : Blood Pressure : / mmHG Vent. Rate : 089 BPM Atrial Rate : 089 BPM P-R Int : 276 ms QRS Dur : 126 ms QT Int : 382 ms P-R-T Axes : 003 110 040 degrees QTc Int : 464 ms POOR DATA QUALITY, INTERPRETATION MAY BE ADVERSELY AFFECTED SINUS RHYTHM WITH 1ST DEGREE A-V BLOCK RIGHT BUNDLE BRANCH BLOCK WHEN COMPARED WITH ECG OF 04-JUL-2016 20:14, PREMATURE SUPRAVENTRICULAR COMPLEXES ARE NO LONGER PRESENT Confirmed by MD JESUS, TIERA ([id number]) on 07/05/2016 3:43:52 PM Referred By: MD DEL ANGEL Confirmed By:TIERA LEE MD
[2016-07-05] MEDS: AMINO ACIDS/PROTEIN HYDROLYS 30 ML LIQUID.PKT PO SCH (17:12)
[2016-07-05] MEDS: ACETAMINOPHEN WITH CODEINE 300MG/30MG TABLET PO PRN (22:33)
[2016-07-05] MEDS ORDERED: HALOPERIDOL LACTATE 5 MG/ML IM ONE (22:51)
[2016-07-05] MEDS ORDERED: HALOPERIDOL LACTATE 5 MG/ML ONE (22:56)
[2016-07-06 08:49] LABS: ALBUMIN 3.2 g/dl (3.5-5.0); ALK PHOS 104 U/L (32-92); ANION GAP 10 (8-16); CO2 25 mmol/L (22-28); CREATININE 1.7 mg/dl (0.6-1.3); GLUCOSE,RANDOM 98 mg/dl (74-106); PHOSPHOROUS 3.3 mg/dl (2.5-4.6); SGOT/AST 19 U/L (10-42); SGPT/ALT 12 U/L (10-40); TOT PROT 6.3 g/dl (6.4-8.3)
[2016-07-06 08:50] LABS: BASOPHIL 0.5 % (0-2.0); EOSINOPHIL 3.9 % (0-4.5); MCH 32.1 pg (25.7-33.7); MCHC 33.9 g/dl (32.0-35.9); MEAN CELL VOLUME 94.7 fl (80-96); MEAN PLT VOLUME 9.6 fl (7.5-11.1); NEUTROPHILS 70.9 % (42.8-82.8); PLATELET COUNT 173 K/MM3 (134-434); WHITE BLOOD COUNT 6.4 K/mm3 (4.0-10.8)
[2016-07-06] MEDS: MULTIVITAMINS (DAILY MVI) TABLET (FP) PO SCH (09:57)
[2016-07-06] MEDS: RANITIDINE HCL 150 MG TABLET (FP) PO SCH (09:57)
[2016-07-06] MEDS: AMINO ACIDS/PROTEIN HYDROLYS 30 ML LIQUID.PKT PO SCH ×2 (09:57→18:43)
[2016-07-06] MEDS: ACETAMINOPHEN WITH CODEINE 300MG/30MG TABLET PO PRN ×2 (09:57→21:22)
[2016-07-06] MEDS: HEPARIN NA (PORCINE) 5,000 UNITS/ML 1ML VIAL SQ SCH ×2 (09:57→21:23)
--- NOTE | 2016-07-06 11:59 | PN ---
Progress Note, Physician History of Present Illness: No complaints elicited. - Current Medication List Current Medications: Active Medications Acetaminophen/Codeine Phosphate (Tylenol # 3 -) 1 tab PO Q6H PRN PRN Reason: FEVER OR PAIN Last Admin: 07/06/16 09:57 Dose: 1 tab Amino Acids (Prosource No Carb Liquid Pkt) 30 ml PO BID@0800,1730 [facility] Last Admin: 07/06/16 09:57 Dose: 30 ml Heparin Sodium (Porcine) (Heparin -) 5,000 unit SQ BID [facility] Last Admin: 07/06/16 09:57 Dose: 5,000 unit Morphine Sulfate (Morphine Injection -) 2 mg IVPUSH Q4H PRN PRN Reason: PAIN Last Admin: 07/05/16 20:23 Dose: 2 mg Multivitamins/Minerals/Vitamin C (Tab-A-Vit -) 1 tab PO DAILY [facility] Last Admin: 07/06/16 09:57 Dose: 1 tab Ranitidine HCl (Zantac -) 150 mg PO DAILY [facility] Last Admin: 07/06/16 09:57 Dose: 150 mg - Objective Vital Signs: Vital Signs Temperature 97.7 F 07/06/16 06:00 Pulse Rate 60 07/06/16 06:00 Respiratory Rate 20 07/06/16 06:38 Blood Pressure 133/46 07/06/16 06:00 O2 Sat by Pulse Oximetry (%) 96 07/06/16 06:38 Constitutional: Yes: No Distress, Calm Neck: Yes: Supple Cardiovascular: Yes: Regular Rate and Rhythm Respiratory: Yes: Regular, Diminished Gastrointestinal: Yes: Normal Bowel Sounds, Soft Edema: No Labs: CBC, BMP 07/06/16 08:00 07/06/16 08:00 INR, PTT INR 0.98 (0.82-1.09) 07/04/16 20:01 Problem List - Problems (1) Gait disorder Code(s): R26.9 - UNSPECIFIED ABNORMALITIES OF GAIT AND MOBILITY (2) Fall Code(s): W19.XXXA - UNSPECIFIED FALL, INITIAL ENCOUNTER Qualifiers: Encounter type: initial encounter Qualified Code(s): W19.XXXA - Unspecified fall, initial encounter (3) Aortic stenosis, mild Code(s): I35.0 - NONRHEUMATIC AORTIC (VALVE) STENOSIS (4) Right bundle branch block Code(s): I45.10 - UNSPECIFIED RIGHT BUNDLE-BRANCH BLOCK (5) Chronic kidney disease (CKD) Code(s): N18.9 - CHRONIC KIDNEY DISEASE, UNSPECIFIED Qualifiers: Chronic kidney disease stage: stage 2 (mild) Qualified Code(s): N18.2 - Chronic kidney disease, stage 2 (mild) Assessment/Plan 07/05/2016 Echo: Normal LV size and fxn, tr-mild TR, mild , AR, abnl LV compliance 1. Post fall, denies syncope, r/o right pelvic rami fracture 2. RBBB 3. Mild aortic valve stenosis 4. Acute on CKD (pre-renal) P:1. IV hydration with monitor renal recovery, analgesia as needed 2. F/u pelvic MRI 3. DVT and GI prophylaxis
--- NOTE | 2016-07-06 13:08 | PN ---
[id number] hip. OBJECTIVE: patient is a 89 year old male, with a past medical history of HTN and chronic diarrhera. patient was admitted from the emergency department observation for emergent condition Vital Signs Period Temp Pulse Resp BP Sys/Ríos Pulse Ox Last 24 Hr 97.7 F-99.2 F 60-83 18-20 133-155/46-68 96-96 GENERAL: cachectic, Awake, alert, and oriented x 2, in no acute distress. HEAD: Normal with no signs of trauma. EYES: Pupils equal, round and reactive to light, extraocular movements intact, sclera anicteric, conjunctiva clear. No lid lag. EARS, NOSE, THROAT: Ears normal, nares patent, oropharynx clear without exudates. moist mucous membranes. NECK: Normal range of motion, supple without lymphadenopathy, JVD, or masses. LUNGS: Breath sounds equal, clear to auscultation bilaterally. No wheezes, and no crackles. No accessory muscle use. HEART: Regular rate and rhythm, normal S1 and S2 without murmur, rub or gallop. ABDOMEN: Soft, nontender, not distended, normoactive bowel sounds, no guarding, no rebound, no masses. No hepatomegaly or splenomegaly. MUSCULOSKELETAL: no cva tenderness, no pain upon palpation. UPPER EXTREMITIES: 2+ pulses, warm, well-perfused. No cyanosis. No clubbing. No peripheral edema. LOWER EXTREMITIES: 2+ pulses, warm, well-perfused. No calf tenderness. No peripheral edema. NEUROLOGICAL: Cranial nerves II-XII intact. Normal speech. Normal gait. PSYCHIATRIC: Cooperative. Good eye contact. Appropriate mood and affect. SKIN: Warm, dry, normal turgor, no rashes or lesions noted, normal capillary refill. Laboratory Results - last 24 hr 07/06/16 07/06/16 08:00 08:00 WBC 6.4 RBC 3.57 L Hgb 11.4 L Hct 33.8 L MCV 94.7 MCHC 33.9 RDW 12.0 Plt Count 173 MPV 9.6 Neutrophils % 70.9 Lymphocytes % 15.4 D Monocytes % 9.3 Eosinophils % 3.9 D Basophils % 0.5 Sodium 137 Potassium 5.0 D Chloride 102 Carbon Dioxide 25 Anion Gap 10 BUN 19 H Creatinine 1.7 H Creat Clearance w eGFR 38.23 Random Glucose 98 Calcium 9.0 Phosphorus 3.3 D Magnesium 2.0 Total Bilirubin 1.0 D AST 19 ALT 12 Alkaline Phosphatase 104 H Total Protein 6.3 L Albumin 3.2 L Active Medications Generic Name Dose Route Start Last Admin Trade Name Valentinq PRN Reason Stop Dose Admin Acetaminophen/Codeine Phosphate 1 tab 07/05/16 10:49 07/06/16 09:57 Tylenol # 3 - PO 1 tab Q6H PRN Administration FEVER OR PAIN Amino Acids 30 ml 07/05/16 17:30 07/06/16 09:57 Prosource No Carb Liquid Pkt PO 30 ml BID@0800,1730 S[facility]NAH Administration Heparin Sodium (Porcine) 5,000 unit 07/05/16 10:00 07/06/16 09:57 Heparin - SQ 5,000 unit BID [facility] Administration Morphine Sulfate 2 mg 07/05/16 11:12 07/05/16 20:23 Morphine Injection - IVPUSH 2 mg Q4H PRN Administration PAIN Multivitamins/Minerals/Vitamin C 1 tab 07/06/16 10:00 07/06/16 09:57 Tab-A-Vit - PO 1 tab DAILY [facility] Administration Ranitidine HCl 150 mg 07/05/16 10:00 07/06/16 09:57 Zantac - PO 150 mg DAILY [facility] Administration IMAGING xray of right hip/pelvis reviewed, questionable right pelvic rami fracture Mri OF THE RIGHT LOWER EXTREMITY: No evidence of right pelvic or proximal femoral fracture, avascular necrosis of left femoral head. ASSESSMENT/PLAN: 1) ortho right lower extremity pain - pain resoloved to right lower extremity. - PT eval completed shuffling unsteady gait noted ambulates 60 feet with the assistance of a walker and one person - appreciate ortho input 2)card questionable syncopal episode - Echo: Grade 1 diastolic dysfunction LV WNL, mild aortic stenosis - Continuous cardiac monitoring no dysrhythmias noted - troponin 2 WNL - cardiology consulted and followed 3) neph acute on chronic renal insufficiency - creatinine 1.7, baseline 1.1, CRIS rising after IV hydration - ultrasound of kidney/bladder ordered - repeat BMP in the a.m. - appreciate nephrology input F/E/N - regular diet - Dietary consult - Replete magnesium PPX - Heparin - zantac - scd dispo: requires telemetry observation. Visit type - Emergency Visit Emergency Visit: Yes ED Registration Date: 07/05/16 Care time: The patient presented to the Emergency Department on the above date and was hospitalized for further evaluation of their emergent condition. - New Patient This patient is new to me today: No - Critical Care Critical Care patient: No - Discharge Referral Referred to [facility] No
--- NOTE | 2016-07-06 13:22 | CONSULT ---
Consult Consult Specialty:: orthopedics Reason for Consultation:: Right Hip - History of Present Illness Chief Complaint: Pain in right hip History of Present Illness: 89y/o male c/o pain in his lower back and right hip after a fall 4 days ago. He is feeling better since the fall and has been able to stand with little pain. The pain is mostly at the base of his spine and he states is worse if he sits a certain way. He denies any numbness or tingling. He does have a hx of a L hip ORIF. There are no other associated, aggravating or relieving factors. - History Source History Provided By: Patient, Medical Record Limitations to Obtaining History: No Limitations - Alcohol/Substance Use Hx Alcohol Use: No - Smoking History Smoking history: Never smoked Have you smoked in the past 12 months: No Home Medications - Allergies Allergies/Adverse Reactions: Allergies Allergy/AdvReac Type Severity Reaction Status Date / Time No Known Allergies Allergy Verified 07/04/16 19:12 - Home Medications Home Medications: Ambulatory Orders NK [No Known Home Medication] 07/02/16 Review of Systems - Review of Systems Constitutional: reports: No Symptoms Eyes: reports: No Symptoms HENT: reports: No Symptoms Neck: reports: No Symptoms Cardiovascular: reports: No Symptoms Respiratory: reports: No Symptoms Gastrointestinal: reports: No Symptoms Genitourinary: reports: No Symptoms Breasts: reports: No Symptoms Reported Musculoskeletal: reports: Back Pain, Extremity Pain Integumentary: reports: No Symptoms Neurological: reports: No Symptoms Endocrine: reports: No Symptoms Hematology/Lymphatic: reports: No Symptoms Psychiatric: reports: No Symptoms Physical Exam Vital Signs: Vital Signs Temperature 97.7 F 07/06/16 06:00 Pulse Rate 60 07/06/16 06:00 Respiratory Rate 20 07/06/16 06:38 Blood Pressure 133/46 07/06/16 06:00 O2 Sat by Pulse Oximetry (%) 96 07/06/16 06:38 Constitutional: Yes: Well Nourished, No Distress, Calm HENT: Yes: Atraumatic, Normocephalic Musculoskeletal: Yes: Other (Lower Back/Pelvis: No open wounds. No erythema, edema or ecchymosis. Mild tendereness over the coccyx. No other areas of tenderness. Smooth ROM of both hips without pain. Pt is able to stand and walk without any problems. NIVD.) Labs: CBC, BMP 07/06/16 08:00 07/06/16 08:00 Imaging - Results X-ray: Report Reviewed, Image Reviewed (No fractures) MRI: Report Reviewed, Image Reviewed (No fractures, Prior hip ORIF on left.) Assessment/Plan #1 Pelvic contusion -Activities as tolerated. -Tylenol PRN for pain.
--- NOTE | 2016-07-06 13:44 | PN ---
Progress Note, Physician History of Present Illness: No complaints elicited. - Current Medication List Current Medications: Active Medications Acetaminophen/Codeine Phosphate (Tylenol # 3 -) 1 tab PO Q6H PRN PRN Reason: FEVER OR PAIN Last Admin: 07/06/16 09:57 Dose: 1 tab Amino Acids (Prosource No Carb Liquid Pkt) 30 ml PO BID@0800,1730 [facility] Last Admin: 07/06/16 09:57 Dose: 30 ml Heparin Sodium (Porcine) (Heparin -) 5,000 unit SQ BID [facility] Last Admin: 07/06/16 09:57 Dose: 5,000 unit Morphine Sulfate (Morphine Injection -) 2 mg IVPUSH Q4H PRN PRN Reason: PAIN Last Admin: 07/05/16 20:23 Dose: 2 mg Multivitamins/Minerals/Vitamin C (Tab-A-Vit -) 1 tab PO DAILY [facility] Last Admin: 07/06/16 09:57 Dose: 1 tab Ranitidine HCl (Zantac -) 150 mg PO DAILY [facility] Last Admin: 07/06/16 09:57 Dose: 150 mg - Objective Vital Signs: Vital Signs Temperature 97.7 F 07/06/16 06:00 Pulse Rate 60 07/06/16 06:00 Respiratory Rate 20 07/06/16 10:00 Blood Pressure 133/46 07/06/16 06:00 O2 Sat by Pulse Oximetry (%) 96 07/06/16 06:38 Constitutional: Yes: No Distress, Calm, Thin Neck: Yes: Supple Cardiovascular: Yes: Regular Rate and Rhythm, Murmur (2/6 SM) Respiratory: Yes: Regular, CTA Bilaterally Gastrointestinal: Yes: Normal Bowel Sounds, Soft Edema: No Labs: CBC, BMP 07/06/16 08:00 07/06/16 08:00 INR, PTT INR 0.98 (0.82-1.09) 07/04/16 20:01 - ....Imaging EKG: Report Reviewed (Tele: NSR, PVC, PAC) Problem List - Problems (1) Gait disorder Code(s): R26.9 - UNSPECIFIED ABNORMALITIES OF GAIT AND MOBILITY (2) Fall Code(s): W19.XXXA - UNSPECIFIED FALL, INITIAL ENCOUNTER Qualifiers: Encounter type: initial encounter Qualified Code(s): W19.XXXA - Unspecified fall, initial encounter (3) Aortic stenosis, mild Code(s): I35.0 - NONRHEUMATIC AORTIC (VALVE) STENOSIS (4) Right bundle branch block Code(s): I45.10 - UNSPECIFIED RIGHT BUNDLE-BRANCH BLOCK (5) [id number] kidney injury Code(s): N17.9 - ACUTE KIDNEY FAILURE, UNSPECIFIED N18.9 - CHRONIC KIDNEY DISEASE, UNSPECIFIED Assessment/Plan 07/05/2016 Echo: Normal LV size and fxn, tr-mild TR, mild , AR, abnl LV compliance 1. Post fall with right pelvic contusion, denies syncope, 2. RBBB 3. Mild aortic valve stenosis 4. Acute on CKD (pre-renal) P:1. IV hydration with monitor renal recovery, analgesia as needed 2. DVT and GI prophylaxis
--- NOTE | 2016-07-06 18:21 | CONSULT ---
Consult Consult Specialty:: Nephrology Reason for Consultation:: CRIS - History of Present Illness Chief Complaint: weakness after fall History of Present Illness: Pt is an 89 year old male with pmhx of HTN who presents to the ER after a fall. Pt is a poor historian and unable to give a full history. He does not remember if the fall was mechanical. His creatinine had been rising and I was called to evaluate him. He denies shortness of breath or palpitations. He denies headache. He denies dysuria or hematuria. He denies history of CKD. He denies nsaid use. - History Source History Provided By: Medical Record - Past Medical History Cardio/Vascular: Yes: CHF, HTN - Alcohol/Substance Use Hx Alcohol Use: No - Smoking History Smoking history: Never smoked Have you smoked in the past 12 months: No Home Medications - Allergies Allergies/Adverse Reactions: Allergies Allergy/AdvReac Type Severity Reaction Status Date / Time No Known Allergies Allergy Verified 07/04/16 19:12 - Home Medications Home Medications: Ambulatory Orders NK [No Known Home Medication] 07/02/16 Family Disease History - Family Disease History Family History: Unable to Obtain Review of Systems - Review of Systems Constitutional: reports: No Symptoms Eyes: reports: No Symptoms HENT: reports: No Symptoms Neck: reports: No Symptoms Cardiovascular: reports: No Symptoms Respiratory: reports: No Symptoms Gastrointestinal: reports: Diarrhea Genitourinary: reports: No Symptoms Musculoskeletal: reports: Extremity Pain Integumentary: reports: No Symptoms Neurological: reports: No Symptoms Endocrine: reports: No Symptoms Hematology/Lymphatic: reports: No Symptoms Psychiatric: reports: No Symptoms Physical Exam Vital Signs: Vital Signs Temperature 97.4 F L 07/06/16 13:42 Pulse Rate 79 07/06/16 13:42 Respiratory Rate 18 07/06/16 15:00 Blood Pressure 111/62 07/06/16 13:42 O2 Sat by Pulse Oximetry (%) 96 07/06/16 15:00 Constitutional: Yes: Calm Eyes: Yes: Conjunctiva Clear HENT: Yes: Atraumatic Neck: Yes: Supple Cardiovascular: Yes: S1, S2 Respiratory: Yes: CTA Bilaterally Gastrointestinal: Yes: Normal Bowel Sounds, Soft Musculoskeletal: Yes: Muscle Weakness Edema: No Neurological: Yes: Oriented Psychiatric: Yes: Oriented Labs: CBC, BMP 07/06/16 08:00 07/06/16 08:00 Laboratory Tests 07/04/16 07/04/16 07/04/16 20:01 20:01 20:01 Hgb 13.9 INR Sodium Potassium Chloride Carbon Dioxide Anion Gap BUN Creatinine 1.4 H Urine Color Yellow Urine Appearance Clear Urine pH 7.5 Ur Specific [place] 1.020 Urine Protein 2+ H Urine Glucose (UA) Negative Urine Ketones Negative Urine Blood Trace-intact 07/04/16 07/05/16 07/05/16 20:01 08:27 08:27 Hgb 12.4 D INR 0.98 Sodium 133 L Potassium 4.1 Chloride 99 Carbon Dioxide 24 Anion Gap 10 BUN 19 H Creatinine 1.5 H Urine Color Urine Appearance Urine pH Ur Specific [place] Urine Protein Urine Glucose (UA) Urine Ketones Urine Blood 07/06/16 07/06/16 08:00 08:00 Hgb 11.4 L INR Sodium 137 Potassium 5.0 D Chloride 102 Carbon Dioxide 25 Anion Gap 10 BUN 19 H Creatinine 1.7 H Urine Color Urine Appearance Urine pH Ur Specific [place] Urine Protein Urine Glucose (UA) Urine Ketones Urine Blood Imaging - Results Chest X-ray: Report Reviewed Ultrasound: Report Reviewed Problem List - Problems (1) [id number] kidney injury Code(s): N17.9 - ACUTE KIDNEY FAILURE, UNSPECIFIED N18.9 - CHRONIC KIDNEY DISEASE, UNSPECIFIED (2) CHF (congestive heart failure) Code(s): I50.9 - HEART FAILURE, UNSPECIFIED Assessment/Plan Current Medications Generic Name Dose Route Start Last Admin Trade Name Freq PRN Reason Stop Dose Admin Acetaminophen/Codeine Phosphate 1 tab 07/05/16 10:49 07/06/16 09:57 Tylenol # 3 - PO 1 tab Q6H PRN Administration FEVER OR PAIN Amino Acids 30 ml 07/05/16 17:30 07/06/16 09:57 Prosource No Carb Liquid Pkt PO 30 ml BID@0800,1730 SAVANNAH Administration Heparin Sodium (Porcine) 5,000 unit 07/05/16 10:00 07/06/16 09:57 Heparin - SQ 5,000 unit BID SAVANNAH Administration Morphine Sulfate 2 mg 07/05/16 11:12 07/05/16 20:23 Morphine Injection - IVPUSH 2 mg Q4H PRN Administration PAIN Multivitamins/Minerals/Vitamin C 1 tab 07/06/16 10:00 07/06/16 09:57 Tab-A-Vit - PO 1 tab DAILY SAVANNAH Administration Ranitidine HCl 150 mg 07/05/16 10:00 07/06/16 09:57 Zantac - PO 150 mg DAILY SAVANNAH Administration Impression 1. CRIS 2. HTN 3. CHF 4. hyponatremia Plan - repeat labs in am - will order urine studies - encourage PO intake - will not restart fluids, will evaluate volume status in am. Pt does have hx of CHF - will comment more on etiology cris after more data is gathered Dr Sommer
[2016-07-07] MEDS: morphine CARPU-JECT 2 MG/1 ML DISP.SYRIN IVPUSH PRN ×3 (00:22→22:25)
[2016-07-07 07:48] LABS: BASOPHIL 0.3 % (0-2.0); EOSINOPHIL 4.7 % (0-4.5); MCH 32.6 pg (25.7-33.7); MCHC 34.4 g/dl (32.0-35.9); MEAN CELL VOLUME 94.8 fl (80-96); MEAN PLT VOLUME 9.4 fl (7.5-11.1); NEUTROPHILS 72.7 % (42.8-82.8); PLATELET COUNT 186 K/MM3 (134-434); RDW 12.4 % (11.9-15.9); WHITE BLOOD COUNT 6.4 K/mm3 (4.0-10.8)
[2016-07-07] MEDS: AMINO ACIDS/PROTEIN HYDROLYS 30 ML LIQUID.PKT PO SCH ×2 (08:00→17:12)
--- NOTE | 2016-07-07 08:02 | PN ---
Progress Note, Physician History of Present Illness: Renal F/U Pt lying in bed in non distress He is not oriented to date or place No longer on IVF No N/V or diarrhea Eating 50% of his meals Renal US no hydro + cysts, U Bladder volume less than 200 cc Kidneys are small and contain non obstructing stones Fe NA 0.65% - Current Medication List Current Medications: Active Medications Acetaminophen/Codeine Phosphate (Tylenol # 3 -) 1 tab PO Q6H PRN PRN Reason: FEVER OR PAIN Last Admin: 07/06/16 21:22 Dose: 1 tab Amino Acids (Prosource No Carb Liquid Pkt) 30 ml PO BID@0800,1730 [facility] Last Admin: 07/06/16 18:43 Dose: 30 ml Heparin Sodium (Porcine) (Heparin -) 5,000 unit SQ BID [facility] Last Admin: 07/06/16 21:23 Dose: 5,000 unit Morphine Sulfate (Morphine Injection -) 2 mg IVPUSH Q4H PRN PRN Reason: PAIN Last Admin: 07/07/16 00:22 Dose: 2 mg Multivitamins/Minerals/Vitamin C (Tab-A-Vit -) 1 tab PO DAILY [facility] Last Admin: 07/06/16 09:57 Dose: 1 tab Ranitidine HCl (Zantac -) 150 mg PO DAILY [facility] Last Admin: 07/06/16 09:57 Dose: 150 mg - Objective Vital Signs: Vital Signs Temperature 97.8 F 07/07/16 06:00 Pulse Rate 78 07/07/16 06:00 Respiratory Rate 20 07/07/16 06:37 Blood Pressure 150/80 07/07/16 06:00 O2 Sat by Pulse Oximetry (%) 98 07/07/16 06:37 Constitutional: Yes: No Distress Cardiovascular: Yes: S1, S2 Respiratory: Yes: CTA Bilaterally Gastrointestinal: Yes: Soft. No: Tenderness, Rebound Edema: No Labs: CBC, BMP 07/07/16 07:17 INR, PTT INR 0.98 (0.82-1.09) 07/04/16 20:01 Laboratory Tests 07/04/16 07/06/16 07/06/16 20:01 19:00 19:00 Urine Protein 2+ H Ur Random Sodium 75 Urine Creatinine 143.0 Assessment/Plan Impression 1. CRIS in pt with low FeNA and CKD- Small kidneys with cysts and stones on sonogram 2. HTN 3. CHF 4. S/P hyponatremia Plan Continue to encourage oral intake Await today's labs May need to restart IVF if azotemia fails to improve Urine for Pro/Cr ratio Dr Salazar
[2016-07-07 08:07] LABS: ALBUMIN 3.2 g/dl (3.5-5.0); BILIRUBIN,TOTAL 0.8 mg/dl (0.2-1.0); CALCIUM 8.6 mg/dl (8.4-10.2); COCKROFT - GAULT 24.56; CREATININE 1.6 mg/dl (0.6-1.3); MAGNESIUM 1.9 mg/dL (1.8-2.4); PHOSPHOROUS 3.3 mg/dl (2.5-4.6); TOT PROT 6.3 g/dl (6.4-8.3)
[2016-07-07] MEDS: HEPARIN NA (PORCINE) 5,000 UNITS/ML 1ML VIAL SQ SCH ×2 (10:00→22:26)
[2016-07-07] MEDS: RANITIDINE HCL 150 MG TABLET (FP) PO SCH (10:00)
[2016-07-07] MEDS: MULTIVITAMINS (DAILY MVI) TABLET (FP) PO SCH (10:00)
[2016-07-07 12:13] LABS: URINE CREATININE 49.5 mg/dL
--- NOTE | 2016-07-07 12:59 | PN ---
Physical Exam: SUBJECTIVE: Patient seen and examined OOB in chair,no c/o. OBJECTIVE: Vital Signs Period Temp Pulse Resp BP Sys/Ríos Pulse Ox Last 24 Hr 97.4 F-98.9 F 78-94 18-20 111-162/62-80 96-98 GENERAL: The patient is awake, alert, forgetful HEAD: Normal with no signs of trauma. EYES: PERRL, extraocular movements intact, sclera anicteric, conjunctiva clear. No ptosis. ENT: Ears normal, nares patent, oropharynx clear without exudates, moist mucous membranes. NECK: Trachea midline, full range of motion, supple. LUNGS: Breath sounds equal, clear to auscultation bilaterally, no wheezes, no crackles, no accessory muscle use. HEART: Regular rate and rhythm, S1, S2,+ murmur, rub or gallop. ABDOMEN: Soft, nontender, nondistended, normoactive bowel sounds, no guarding, no rebound, no hepatosplenomegaly, no masses. EXTREMITIES: 2+ pulses, warm, well-perfused, no edema. NEUROLOGICAL: Cranial nerves II through XII grossly intact. Normal speech, gait not observed. PSYCH: Normal mood, normal affect. SKIN: Warm, dry, normal turgor, no rashes or lesions noted Laboratory Results - last 24 hr 07/06/16 07/06/16 07/07/16 19:00 19:00 07:17 WBC 6.4 RBC 3.41 L Hgb 11.1 L Hct 32.3 L MCV 94.8 MCHC 34.4 RDW 12.4 Plt Count 186 MPV 9.4 Neutrophils % 72.7 Lymphocytes % 15.2 Monocytes % 7.1 Eosinophils % 4.7 H Basophils % 0.3 Sodium Potassium Chloride Carbon Dioxide Anion Gap BUN Creatinine Creat Clearance w eGFR Random Glucose Calcium Phosphorus Magnesium Total Bilirubin AST ALT Alkaline Phosphatase Total Protein Albumin U Random Total Protein Ur Random Sodium 75 Ur Random Potassium 32.8 Ur Random Chloride 108 Urine Creatinine 143.0 Protein/Creatinin Ratio 07/07/16 07/07/16 07:17 09:30 WBC RBC Hgb Hct MCV MCHC RDW Plt Count MPV Neutrophils % Lymphocytes % Monocytes % Eosinophils % Basophils % Sodium 135 L Potassium 3.9 D Chloride 103 Carbon Dioxide 24 Anion Gap 8 BUN 26 H D Creatinine 1.6 H Creat Clearance w eGFR 41.00 Random Glucose 100 Calcium 8.6 Phosphorus 3.3 Magnesium 1.9 Total Bilirubin 0.8 AST 20 ALT 13 Alkaline Phosphatase 100 H Total Protein 6.3 L Albumin 3.2 L U Random Total Protein 86 H Ur Random Sodium Ur Random Potassium Ur Random Chloride Urine Creatinine 49.5 Protein/Creatinin Ratio 0.58 Active Medications Generic Name Dose Route Start Last Admin Trade Name Freq PRN Reason Stop Dose Admin Acetaminophen/Codeine Phosphate 1 tab 07/05/16 10:49 07/06/16 21:22 Tylenol # 3 - PO 1 tab Q6H PRN Administration FEVER OR PAIN Amino Acids 30 ml 07/05/16 17:30 07/06/16 18:43 Prosource No Carb Liquid Pkt PO 30 ml BID@0800,1730 SAVANNAH Administration Heparin Sodium (Porcine) 5,000 unit 07/05/16 10:00 07/06/16 21:23 Heparin - SQ 5,000 unit BID SAVANNAH Administration Sodium Chloride 1,000 mls @ 50 mls/hr 07/07/16 08:45 Normal Saline - IV ASDIR SAVANNAH Morphine Sulfate 2 mg 07/05/16 11:12 07/07/16 00:22 Morphine Injection - IVPUSH 2 mg Q4H PRN Administration PAIN Multivitamins/Minerals/Vitamin C 1 tab 07/06/16 10:00 07/06/16 09:57 Tab-A-Vit - PO 1 tab DAILY SAVANNAH Administration Ranitidine HCl 150 mg 07/05/16 10:00 07/06/16 09:57 Zantac - PO 150 mg DAILY SAVANNAH Administration Imaging xray of right hip/pelvis reviewed, questionable right pelvic rami fracture Mri OF THE RIGHT LOWER EXTREMITY: No evidence of right pelvic or proximal femoral fracture, avascular necrosis of left femoral head. ASSESSMENT/PLAN: Patient is a 89 year old male, with a past medical history of HTN and chronic diarrhea, s/p unwitnessed fall on 07/02/16, ?syncope,came to the ER found to have abnormal EKG findings, signed AMA. Now presents with inability to bear weight upon his right lower extremity due to the pain. *Right lower extremity pain- resolved -MRI OF THE RIGHT LOWER EXTREMITY: No evidence of right pelvic or proximal femoral fracture, avascular necrosis of left femoral head. - report discussed with Ortho PIERO Landaverde - PT eval completed shuffling unsteady gait noted ambulates 60 feet with the assistance of a walker and one person - as per ortho - no fx, no sx needed *Questionable syncopal episode - Echo: Grade 1 diastolic dysfunction LV WNL, mild aortic stenosis - Continuous cardiac monitoring no dysrhythmias noted - troponin 2 WNL - cardiology input appreciated *Acute on chronic renal insufficiency - creatinine 1.6, baseline 1.1, - ultrasound of kidney/bladder - small bilateral renal cysts, nonconstructive stone - renal following - restarted on IVF - will f/u on [employer] * Hyponatremia - Na 135- will cont on IVF * Hx of HTN - off meds - will monitor BP closely F/E/N - regular diet - Dietary consult - Replete magnesium PPX - Heparin - zantac - scd Visit type - Emergency Visit Emergency Visit: Yes ED Registration Date: 07/05/16 Care time: The patient presented to the Emergency Department on the above date and was hospitalized for further evaluation of their emergent condition. - New Patient This patient is new to me today: Yes Date on this admission: 07/07/16 - Critical Care Critical Care patient: No
[2016-07-07] MEDS: SODIUM CHLORIDE 1,000 ML IV SCH ×2 (19:47→22:28)
[2016-07-08] MEDS: AMINO ACIDS/PROTEIN HYDROLYS 30 ML LIQUID.PKT PO SCH (08:00)
--- NOTE | 2016-07-08 08:15 | PN ---
Progress Note, Physician History of Present Illness: Renal F/U Pt was started on IVF yesterday given the poor oral intake and decreasing serum sodium NS now at 50 cc/hr Today's labs pending Renal US no hydro + cysts, U Bladder volume less than 200 cc Kidneys are small and contain non obstructing stones Fe NA 0.65% - Current Medication List Current Medications: Active Medications Acetaminophen/Codeine Phosphate (Tylenol # 3 -) 1 tab PO Q6H PRN PRN Reason: FEVER OR PAIN Last Admin: 07/06/16 21:22 Dose: 1 tab Amino Acids (Prosource No Carb Liquid Pkt) 30 ml PO BID@0800,1730 [facility] Last Admin: 07/07/16 17:12 Dose: 30 ml Heparin Sodium (Porcine) (Heparin -) 5,000 unit SQ BID [facility] Last Admin: 07/07/16 22:26 Dose: 5,000 unit Sodium Chloride (Normal Saline -) 1,000 mls @ 50 mls/hr IV ASDIR [facility] Last Admin: 07/07/16 22:28 Dose: 50 mls/hr Morphine Sulfate (Morphine Injection -) 2 mg IVPUSH Q4H PRN PRN Reason: PAIN Last Admin: 07/07/16 22:25 Dose: 2 mg Multivitamins/Minerals/Vitamin C (Tab-A-Vit -) 1 tab PO DAILY [facility] Last Admin: 07/07/16 10:00 Dose: 1 tab Ranitidine HCl (Zantac -) 150 mg PO DAILY [facility] Last Admin: 07/07/16 10:00 Dose: 150 mg - Objective Vital Signs: Vital Signs Temperature 98.8 F 07/08/16 05:39 Pulse Rate 76 07/08/16 05:39 Respiratory Rate 16 07/08/16 05:39 Blood Pressure 169/71 07/08/16 05:39 O2 Sat by Pulse Oximetry (%) 100 07/08/16 03:00 Constitutional: Yes: No Distress Cardiovascular: Yes: S1, S2. No: JVD Respiratory: Yes: CTA Bilaterally Gastrointestinal: Yes: Soft. No: Tenderness, Rebound Edema: No Labs: CBC, BMP 07/07/16 07:17 07/07/16 07:17 INR, PTT INR 0.98 (0.82-1.09) 07/04/16 20:01 Assessment/Plan Impression 1. CRIS in pt with low FeNA and CKD- Small kidneys with cysts and stones on sonogram 2. HTN controlled 3. CHF compensated 4. Borderline hyponatremia Plan Continue with present IVF Await today's labs Encourage PO intake Dr Salazar
--- NOTE | 2016-07-08 08:21 | CONSULT ---
Consult - text type - Consultation Consultation Note: Orthopedic consult note: Chart and radiographs reviewed again with Dr. Gil. Imaging - Results X-ray: Report Reviewed, Image Reviewed (No fractures) MRI: Report Reviewed, Image Reviewed (No fractures, Prior hip ORIF on left.) MRI reveals no acute fracture or dislocations. 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 As per previous consult, no surgical intervention required at this time. Continue current treatment plan activity as tolerated. Recommend Physical therapy for gait, balance and strengthening. Use walker as needed for stability. Patient to follow up in office as needed with Dr. Galindo.
[2016-07-08 08:46] LABS: ANION GAP 12 (8-16); CO2 24 mmol/L (22-28); CREATININE 1.4 mg/dl (0.6-1.3); GLUCOSE,RANDOM 76 mg/dl (74-106)
[2016-07-08 08:47] LABS: BASOPHIL 0.2 % (0-2.0); EOSINOPHIL 3.7 % (0-4.5); MCH 30.8 pg (25.7-33.7); MCHC 33.2 g/dl (32.0-35.9); MEAN CELL VOLUME 92.6 fl (80-96); MEAN PLT VOLUME 9.7 fl (7.5-11.1); NEUTROPHILS 73.2 % (42.8-82.8); PLATELET COUNT 224 K/MM3 (134-434); RDW 12.1 % (11.9-15.9); WHITE BLOOD COUNT 6.8 K/mm3 (4.0-10.8)
[2016-07-08] MEDS: MULTIVITAMINS (DAILY MVI) TABLET (FP) PO SCH (10:01)
[2016-07-08] MEDS: RANITIDINE HCL 150 MG TABLET (FP) PO SCH (10:01)
[2016-07-08] MEDS: HEPARIN NA (PORCINE) 5,000 UNITS/ML 1ML VIAL SQ SCH ×2 (10:01→22:23)
--- NOTE | 2016-07-08 12:35 | PN ---
Progress Note, Physician History of Present Illness: No complaints elicited. - Current Medication List Current Medications: Active Medications Amino Acids (Prosource No Carb Liquid Pkt) 30 ml PO BID@0800,1730 [facility] Last Admin: 07/07/16 17:12 Dose: 30 ml Heparin Sodium (Porcine) (Heparin -) 5,000 unit SQ BID [facility] Last Admin: 07/07/16 22:26 Dose: 5,000 unit Sodium Chloride (Normal Saline -) 1,000 mls @ 50 mls/hr IV ASDIR [facility] Last Admin: 07/07/16 22:28 Dose: 50 mls/hr Multivitamins/Minerals/Vitamin C (Tab-A-Vit -) 1 tab PO DAILY [facility] Last Admin: 07/07/16 10:00 Dose: 1 tab Ranitidine HCl (Zantac -) 150 mg PO DAILY [facility] Last Admin: 07/07/16 10:00 Dose: 150 mg - Objective Vital Signs: Vital Signs Temperature 98.8 F 07/08/16 05:39 Pulse Rate 76 07/08/16 05:39 Respiratory Rate 16 07/08/16 05:39 Blood Pressure 169/71 07/08/16 05:39 O2 Sat by Pulse Oximetry (%) 100 07/08/16 03:00 Constitutional: Yes: No Distress, Calm, Thin Neck: Yes: Supple Cardiovascular: Yes: Regular Rate and Rhythm Respiratory: Yes: Regular, Diminished Gastrointestinal: Yes: Normal Bowel Sounds, Soft Edema: No Labs: CBC, BMP 07/08/16 06:30 07/08/16 06:30 INR, PTT INR 0.98 (0.82-1.09) 07/04/16 20:01 - ....Imaging EKG: Report Reviewed (NSR RBBB PVC) Problem List - Problems (1) Gait disorder Code(s): R26.9 - UNSPECIFIED ABNORMALITIES OF GAIT AND MOBILITY (2) Fall Code(s): W19.XXXA - UNSPECIFIED FALL, INITIAL ENCOUNTER Qualifiers: Encounter type: initial encounter Qualified Code(s): W19.XXXA - Unspecified fall, initial encounter (3) Aortic stenosis, mild Code(s): I35.0 - NONRHEUMATIC AORTIC (VALVE) STENOSIS (4) Right bundle branch block Code(s): I45.10 - UNSPECIFIED RIGHT BUNDLE-BRANCH BLOCK (5) Beycv-rj-lehantz kidney injury Code(s): N17.9 - ACUTE KIDNEY FAILURE, UNSPECIFIED N18.9 - CHRONIC KIDNEY DISEASE, UNSPECIFIED (6) Diastolic dysfunction without heart failure Code(s): I51.9 - HEART DISEASE, UNSPECIFIED (7) Hypertension Code(s): I10 - ESSENTIAL (PRIMARY) HYPERTENSION Qualifiers: Hypertension type: essential hypertension Qualified Code(s): I10 - Essential (primary) hypertension (8) Premature ventricular complex Code(s): I49.3 - VENTRICULAR PREMATURE DEPOLARIZATION Assessment/Plan 07/05/2016 Echo: Normal LV size and fxn, tr-mild TR, mild , AR, abnl LV compliance 1. Post fall with right pelvic contusion, denies syncope 2. RBBB 3. Diastolic dysfunction with mild aortic valve stenosis 4. Acute on CKD (pre-renal) improving 5. HTN 6. PVC P:1. IV hydration with monitor renal recovery, analgesia as needed 2. Start Toprol XL 25 qd 3. DVT and GI prophylaxis 4. No orthopedic surgical intervention recommended. Plan for physical therapy for gait, balance and strengthening. Use walker as needed for stability.
[2016-07-08] MEDS: METOPROLOL SUCCINATE 25 MG TAB.SR.24H (FP) PO SCH (15:04)
--- NOTE | 2016-07-08 16:55 | PN ---
Physical Exam: SUBJECTIVE: Patient seen and examined oob to chair. Was agitated earlier today, now quite calm and cooperative on exam. OBJECTIVE: Vital Signs Period Temp Pulse Resp BP Sys/Ríos Pulse Ox Last 24 Hr 97.5 F-98.8 F 76-91 16-19 100-169/58-71 90-100 GENERAL: Thin, frail, cachectic; temporal wasting; bony prominences; clavicular protrusion NEURO:The patient is awake, oriented only to person. Thinks he is home, year is 1987, but does remember he has disliked Pres. Trump for many years. Cranial nerves II through XII grossly intact. Normal speech, gait not observed. HEAD: Normal with no signs of trauma. LUNGS: Breath sounds equal, clear to auscultation bilaterally, no wheezes, no crackles, no accessory muscle use. HEART: Regular rate and rhythm, S1, S2 without murmur, rub or gallop. ABDOMEN: Soft, nontender, nondistended, normoactive bowel sounds, no guarding, no rebound EXTREMITIES: 2+ pulses, warm, well-perfused, no edema. NEUROLOGICAL: PSYCH: Normal mood, normal affect. Laboratory Results - last 24 hr 07/08/16 07/08/16 06:30 06:30 WBC 6.8 RBC 3.87 L Hgb 11.9 Hct 35.8 MCV 92.6 MCHC 33.2 RDW 12.1 Plt Count 224 D MPV 9.7 Neutrophils % 73.2 Lymphocytes % 15.4 Monocytes % 7.5 Eosinophils % 3.7 Basophils % 0.2 Sodium 137 Potassium 4.2 Chloride 101 Carbon Dioxide 24 Anion Gap 12 BUN 19 H D Creatinine 1.4 H Random Glucose 76 D Calcium 9.0 Active Medications Generic Name Dose Route Start Last Admin Trade Name Freq PRN Reason Stop Dose Admin Amino Acids 30 ml 07/05/16 17:30 07/08/16 08:00 Prosource No Carb Liquid Pkt PO 30 ml BID@0800,1730 SAVANNAH Administration Heparin Sodium (Porcine) 5,000 unit 07/05/16 10:00 07/08/16 10:01 Heparin - SQ 5,000 unit BID SAVANNAH Administration Sodium Chloride 1,000 mls @ 50 mls/hr 07/07/16 08:45 07/07/16 22:28 Normal Saline - IV 50 mls/hr ASDIR SAVANNAH Administration Metoprolol Succinate 25 mg 07/08/16 12:45 07/08/16 15:04 Toprol Xl - PO 25 mg DAILY SAVANNAH Administration Multivitamins/Minerals/Vitamin C 1 tab 07/06/16 10:00 07/08/16 10:01 Tab-A-Vit - PO 1 tab DAILY SAVANNAH Administration Ranitidine HCl 150 mg 07/05/16 10:00 07/08/16 10:01 Zantac - PO 150 mg DAILY SAVANNAH Administration ASSESSMENT/PLAN: 89 year-old man with a PMH of HTN, s/p left hip ORIF, and chronic diarrhea. Had an unwitnessed fall on 07/02/16, came to the ED and signed out AMA. Now admitted for RLE and inability to weight bear. 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 --no surgical intervention indicated --needs PT/rehab Chronic renal insufficiency --Cr 1.4 which has been his baseline since 2014 --small kidneys with cysts and stones on sonogram Hyponatremia, resolved Diastolic heart failure --07/05/2016 Echo: Normal LV size and fxn, tr-mild TR, mild , AR, abnl LV compliance Hypertension --continue Toprol XL Severe malnutrition --estimated 33 lb weight loss, time frame unknown, loss of subcutaneous fat, decreased lean muscle mass, temporal hollowing, sunken orbits, luis protrusion clavical area F/E/N Fluids: PO intake adequate Electrolytes: replete as indicated Nutrition: Ensure Enlive BID, Magic cup, yogurt, eggs daily; prosource BID, MVI DVT prophylaxis: subq heparin Dispo: continues to require inpatient care. Full code. Visit type - Emergency Visit Emergency Visit: Yes ED Registration Date: 07/05/16 Care time: The patient presented to the Emergency Department on the above date and was hospitalized for further evaluation of their emergent condition. - New Patient This patient is new to me today: Yes Date on this admission: 07/08/16 - Critical Care Critical Care patient: No
[2016-07-08] MEDS ORDERED: morphine CARPU-JECT 2 MG/1 ML DISP.SYRIN IVPB PRN (22:25)
[2016-07-09 07:00] VITALS: BP 158/85; PULSE 86; TEMP 97.3
--- NOTE | 2016-07-09 07:44 | PN ---
Progress Note, Physician History of Present Illness: Renal F/U Pt's renal function improved with the IVF as of yesterday Today's labs pending Pt is lying flat in bed and is in no distress Appetite remains poor - Current Medication List Current Medications: Active Medications Amino Acids (Prosource No Carb Liquid Pkt) 30 ml PO BID@0800,1730 [facility] Last Admin: 07/08/16 08:00 Dose: 30 ml Heparin Sodium (Porcine) (Heparin -) 5,000 unit SQ BID [facility] Last Admin: 07/08/16 22:23 Dose: 5,000 unit Sodium Chloride (Normal Saline -) 1,000 mls @ 50 mls/hr IV ASDIR [facility] Last Admin: 07/07/16 22:28 Dose: 50 mls/hr Metoprolol Succinate (Toprol Xl -) 25 mg PO DAILY [facility] Last Admin: 07/08/16 15:04 Dose: 25 mg Morphine Sulfate (Morphine Injection -) 2 mg IVPB Q4H PRN PRN Reason: PAIN Multivitamins/Minerals/Vitamin C (Tab-A-Vit -) 1 tab PO DAILY [facility] Last Admin: 07/08/16 10:01 Dose: 1 tab Ranitidine HCl (Zantac -) 150 mg PO DAILY [facility] Last Admin: 07/08/16 10:01 Dose: 150 mg - Objective Vital Signs: Vital Signs Temperature 97.3 F L 07/09/16 06:59 Pulse Rate 86 07/09/16 06:59 Respiratory Rate 18 07/09/16 06:59 Blood Pressure 158/85 07/09/16 06:59 O2 Sat by Pulse Oximetry (%) 95 07/09/16 06:59 Constitutional: Yes: No Distress Cardiovascular: Yes: Pulse Irregular, S1, S2 Respiratory: Yes: CTA Bilaterally Gastrointestinal: Yes: Soft, Distention. No: Tenderness, Rebound Edema: No Labs: CBC, BMP 07/08/16 06:30 07/08/16 06:30 INR, PTT INR 0.98 (0.82-1.09) 07/04/16 20:01 Assessment/Plan Impression 1. CRIS in pt with low FeNA and CKD which is improving with the IV NS - Small kidneys with cysts and stones on sonogram 2. HTN with borderline high systolic reading 3. CHF compensated 4. Borderline hyponatremia Plan D/C the NS and monitor BP and BMP Await today's labs Encourage PO intake Dr Salazar
--- NOTE | 2016-07-09 09:05 | DS ---
Physical Exam: SUBJECTIVE: Patient seen and examined OBJECTIVE: Vital Signs Period Temp Pulse Resp BP Sys/Ríos Pulse Ox Last 24 Hr 97.3 F-97.6 F 86-91 18-19 100-158/58-85 90-95 PHYSICAL EXAM GENERAL: The patient is awake, alert, and fully oriented, in no acute distress. HEAD: Normal with no signs of trauma. EYES: PERRL, extraocular movements intact, sclera anicteric, conjunctiva clear. ENT: Ears normal, nares patent, oropharynx clear without exudates, moist mucous membranes. NECK: Trachea midline, full range of motion, supple. LUNGS: Breath sounds equal, clear to auscultation bilaterally, no wheezes, no crackles, no accessory muscle use. HEART: Regular rate and rhythm, S1, S2 without murmur, rub or gallop. ABDOMEN: Soft, nontender, nondistended, normoactive bowel sounds, no guarding, no rebound, no hepatosplenomegaly, no masses. EXTREMITIES: 2+ pulses, warm, well-perfused, no edema. NEUROLOGICAL: Cranial nerves II through XII grossly intact. Normal speech, gait not observed. PSYCH: Normal mood, normal affect. SKIN: Warm, dry, normal turgor, no rashes or lesions noted. LABS HOSPITAL COURSE: Date of Admission:07/05/16 Date of Discharge: 07/09/16 Minutes to complete discharge: 45 Discharge Summary Reason For Visit: GAIT DISORDER/ALT. MENTAL STATUS Current Active Problems Wgbpo-cp-tnwistg kidney injury (Acute) Altered mental status (Acute) Aortic stenosis, mild (Acute) CHF (congestive heart failure) (Acute) Chronic kidney disease (CKD) (Acute) Diastolic dysfunction without heart failure (Acute) Gait disorder (Acute) Hypertension (Acute) Premature ventricular complex (Acute) Right bundle branch block (Acute) Condition: Guarded - Home Medications Comprehensive Discharge Medication List: Ambulatory Orders NK [No Known Home Medication] 07/02/16
[2016-07-09 09:24] LABS: ANION GAP 9 (8-16); CALCIUM 9.2 mg/dl (8.4-10.2); CO2 27 mmol/L (22-28); CREATININE 1.4 mg/dl (0.6-1.3); GLUCOSE,RANDOM 135 mg/dl (74-106)
[2016-07-09 09:42] LABS: BASOPHIL 0.2 % (0-2.0); EOSINOPHIL 2.9 % (0-4.5); MCH 30.5 pg (25.7-33.7); MCHC 32.5 g/dl (32.0-35.9); MEAN CELL VOLUME 93.7 fl (80-96); MEAN PLT VOLUME 9.2 fl (7.5-11.1); NEUTROPHILS 80.9 % (42.8-82.8); PLATELET COUNT 252 K/MM3 (134-434); RDW 12.3 % (11.9-15.9); WHITE BLOOD COUNT 8.5 K/mm3 (4.0-10.8)
--- NOTE | 2016-07-09 10:46 | PN ---
Progress Note, Physician History of Present Illness: No complaints elicited. - Current Medication List Current Medications: Active Medications Amino Acids (Prosource No Carb Liquid Pkt) 30 ml PO BID@0800,1730 [facility] Last Admin: 07/08/16 08:00 Dose: 30 ml Heparin Sodium (Porcine) (Heparin -) 5,000 unit SQ BID [facility] Last Admin: 07/08/16 22:23 Dose: 5,000 unit Metoprolol Succinate (Toprol Xl -) 25 mg PO DAILY [facility] Last Admin: 07/08/16 15:04 Dose: 25 mg Morphine Sulfate (Morphine Injection -) 2 mg IVPB Q4H PRN PRN Reason: PAIN Multivitamins/Minerals/Vitamin C (Tab-A-Vit -) 1 tab PO DAILY [facility] Last Admin: 07/08/16 10:01 Dose: 1 tab Ranitidine HCl (Zantac -) 150 mg PO DAILY [facility] Last Admin: 07/08/16 10:01 Dose: 150 mg - Objective Vital Signs: Vital Signs Temperature 97.3 F L 07/09/16 06:59 Pulse Rate 86 07/09/16 06:59 Respiratory Rate 18 07/09/16 06:59 Blood Pressure 158/85 07/09/16 06:59 O2 Sat by Pulse Oximetry (%) 95 07/09/16 06:59 Constitutional: Yes: No Distress, Calm, Thin Neck: Yes: Supple Cardiovascular: Yes: Regular Rate and Rhythm, Murmur (2/6 SM) Respiratory: Yes: Regular, Diminished Gastrointestinal: Yes: Normal Bowel Sounds, Soft Edema: No Labs: CBC, BMP 07/09/16 06:00 07/09/16 07:00 INR, PTT INR 0.98 (0.82-1.09) 07/04/16 20:01 Problem List - Problems (1) Gait disorder Code(s): R26.9 - UNSPECIFIED ABNORMALITIES OF GAIT AND MOBILITY (2) Fall Code(s): W19.XXXA - UNSPECIFIED FALL, INITIAL ENCOUNTER Qualifiers: Encounter type: initial encounter Qualified Code(s): W19.XXXA - Unspecified fall, initial encounter (3) Aortic stenosis, mild Code(s): I35.0 - NONRHEUMATIC AORTIC (VALVE) STENOSIS (4) Right bundle branch block Code(s): I45.10 - UNSPECIFIED RIGHT BUNDLE-BRANCH BLOCK (5) Jwrcw-es-olqyzcr kidney injury Code(s): N17.9 - ACUTE KIDNEY FAILURE, UNSPECIFIED N18.9 - CHRONIC KIDNEY DISEASE, UNSPECIFIED (6) Diastolic dysfunction without heart failure Code(s): I51.9 - HEART DISEASE, UNSPECIFIED (7) Hypertension Code(s): I10 - ESSENTIAL (PRIMARY) HYPERTENSION Qualifiers: Hypertension type: essential hypertension Qualified Code(s): I10 - Essential (primary) hypertension (8) Premature ventricular complex Code(s): I49.3 - VENTRICULAR PREMATURE DEPOLARIZATION Assessment/Plan 07/05/2016 Echo: Normal LV size and fxn, tr-mild TR, mild , AR, abnl LV compliance 1. Post fall with right pelvic contusion, denies syncope 2. RBBB 3. Diastolic dysfunction with mild aortic valve stenosis 4. Acute on CKD (pre-renal) improving 5. HTN 6. PVC P:1. Oral hydration with monitor renal recovery, analgesia as needed 2. Continue Toprol XL 25 qd 3. DVT and GI prophylaxis 4. No orthopedic surgical intervention recommended. Plan for physical therapy for gait, balance and strengthening. Use walker as needed for stability. D/c planning
[2016-07-09] MEDS: MULTIVITAMINS (DAILY MVI) TABLET (FP) PO SCH (10:57)
[2016-07-09] MEDS: RANITIDINE HCL 150 MG TABLET (FP) PO SCH (10:57)
[2016-07-09] MEDS: METOPROLOL SUCCINATE 25 MG TAB.SR.24H (FP) PO SCH (10:57)
[2016-07-09] MEDS: HEPARIN NA (PORCINE) 5,000 UNITS/ML 1ML VIAL SQ SCH (10:58)
[2016-07-09] MEDS: AMINO ACIDS/PROTEIN HYDROLYS 30 ML LIQUID.PKT PO SCH (10:58)
== END 2016-07-09 12:31 | disposition home health service (06) ==
LOC: FER 19:00 → FM/S 07-05 02:39
PROVIDERS: ADMIT Internal Medicine; ATTEND Nurse Practitioner Family
PROC: 3E033GC Introduction of Other Therapeutic Substance into Peripheral Vein, Percutaneous Approach (ICD-10-PCS; principal; 2016-07-05)
PROC: 3E033NZ Introduction of Analgesics, Hypnotics, Sedatives into Peripheral Vein, Percutaneous Approach (ICD-10-PCS; 2016-07-05)
PROC: 3E0337Z Introduction of Electrolytic and Water Balance Substance into Peripheral Vein, Percutaneous Approach (ICD-10-PCS; 2016-07-05)
PROC: 3E013GC Introduction of Other Therapeutic Substance into Subcutaneous Tissue, Percutaneous Approach (ICD-10-PCS; 2016-07-05)
PROC: 3E023GC Introduction of Other Therapeutic Substance into Muscle, Percutaneous Approach (ICD-10-PCS; 2016-07-05)
DX: R26.89 Other abnormalities of gait and mobility (principal); R41.0 Disorientation, unspecified; I45.10 Unspecified right bundle-branch block; I44.0 Atrioventricular block, first degree; I50.9 Heart failure, unspecified; I51.89 Other ill-defined heart diseases; I49.3 Ventricular premature depolarization; I35.0 Nonrheumatic aortic (valve) stenosis; I12.9 Hypertensive chronic kidney disease with stage 1 through stage 4 chronic kidney disease, or unspecified chronic kidney disease; N18.2 Chronic kidney disease, stage 2 (mild); N17.9 Acute kidney failure, unspecified; R41.82 Altered mental status, unspecified; R19.7 Diarrhea, unspecified; I49.1 Atrial premature depolarization; Z91.81 History of falling; E43 Unspecified severe protein-calorie malnutrition; Z68.1 Body mass index [BMI] 19.9 or less, adult; M87.9 Osteonecrosis, unspecified
CPT/HCPCS: 36415; 70450-TC; 71010-TC; 73523-TC; 73721-RT-TC; 74176-TC; 76775-TC; 76856-TC; 80048; 80053; 81003; 81015; 82436; 82550; 82570; 83735; 84100; 84133; 84156; 84300; 84484; 85025; 85610; 93005; 93306-TC; 97116-GP; 97162-PG; 99283-25; G0378; J1644

== ENCOUNTER 2016-10-09 16:35 | Emergency (ER) | payer OTHER ==
[2016-10-09 16:42] VITALS: BP 132/91; PULSE 78; TEMP 98.2; BMI 15.2
[2016-10-09] MEDS ORDERED: LIDOCAINE 1%/EPI 1:100000 (20 ML MULTI DOSE VIAL) PNB ONE (17:02)
--- NOTE | 2016-10-09 17:02 | PDOC ---
History of Present Illness - History of Present Illness Initial Comments: 10/09/16 17:05 The patient is a 89 year old male, with a significant past medical history of hypertension, alzheimer's, who presents to the emergency department with head pain and left-sided chest pain s/p mechanical fall at home today. The patient states he was reaching for toilet paper when he slipped and hit the front of his head on the bath tub. He denies loss of consciousness. He reports the fall was witnessed by health home coordinator who is present in the ED now. The patient also reports left sided chest pain at this time. As per the home health aide, the patient has 24 hour care at home. The home health aide also states this is the patients third fall this week. He denies shortness of breath and dizziness. He denies fever, chills, nausea, vomit, diarrhea and constipation. He denies dysuria, frequency, urgency and hematuria. Allergies: NKDA PCP - Dr. Devon Schofield <Chelsea Scanlon - Last Filed: 10/09/16 17:05> - General History Source: Patient Exam Limitations: No Limitations <Velma Stratton - Last Filed: 10/09/16 19:22> - General Chief Complaint: Injury Stated Complaint: INJURY Time Seen by Provider: 10/09/16 16:38 Past History <Chelsea Scanlon - Last Filed: 10/09/16 17:05> - Past Medical History Anemia: No Asthma: No Cancer: No Cardiac Disorders: No CVA: No COPD: No CHF: No Dementia: No Diabetes: No GI Disorders: Yes (DIARRHEA) Disorders: No HTN: Yes Hypercholesterolemia: No HIV: No Liver Disease: No Psychiatric Problems: No Suicide Attempt (Hx): No Seizures: No Thyroid Disease: No Lung CA: No - Surgical History Abdominal Surgery: No Appendectomy: No Cardiac Surgery: No Cholecystectomy: No Lung Surgery: No Orthopedic Surgery: Yes (LEFT HIP PINNING) - Psycho/Social/Smoking Cessation Hx Anxiety: No Suicidal Ideation: No Smoking History: Never smoked Have you smoked in the past 12 months: No Hx Alcohol Use: No Drug/Substance Use Hx: No Substance Use Type: None <Velma Stratton - Last Filed: 10/09/16 19:22> - Past Medical History Allergies/Adverse Reactions: Allergies Allergy/AdvReac Type Severity Reaction Status Date / Time No Known Allergies Allergy Verified 10/09/16 16:44 Home Medications: Ambulatory Orders Donepezil HCl [Aricept -] 5 mg PO DAILY 10/09/16 Quetiapine Fumarate [Seroquel -] 50 mg PO HS 10/09/16 Review of Systems - Review of Systems Able to Perform ROS?: Yes Comments:: 10/09/16 17:05 GENERAL/CONSTITUTIONAL: No fever or chills. No weakness. HEAD, EYES, EARS, NOSE AND THROAT: (+) frontal head pain. No change in vision. No ear pain or discharge. No sore throat. CARDIOVASCULAR: (+) left chest and rib pain. No shortness of breath. RESPIRATORY: No cough, wheezing, or hemoptysis. GASTROINTESTINAL: No nausea, vomiting, diarrhea or constipation. GENITOURINARY: No dysuria, frequency, or change in urination. MUSCULOSKELETAL: (+) left lower rib pain. No joint or muscle swelling. No neck or back pain. SKIN: No rash NEUROLOGIC: No headache, vertigo, loss of consciousness, or change in strength/ sensation. ENDOCRINE: No increased thirst. No abnormal weight change. HEMATOLOGIC/LYMPHATIC: No anemia, easy bleeding, or history of blood clots. ALLERGIC/IMMUNOLOGIC: No hives or skin allergy. <Chelsea Scanlon - Last Filed: 10/09/16 17:05> *Physical Exam - Vital Signs Last Vital Signs Temp Pulse Resp BP Pulse Ox 98.2 F 78 17 132/91 100 10/09/16 16:35 10/09/16 16:35 10/09/16 16:35 10/09/16 16:35 10/09/16 16:35 - Physical Exam Comments: 10/09/16 17:06 GENERAL: Awake, alert, and fully oriented, in no acute distress HEAD: (+) 1.0cm left eyebrow laceration is irregular and superficial without bony step-off. EYES: PERRLA, EOMI, sclera anicteric, conjunctiva clear ENT: Auricles normal inspection, hearing grossly normal, nares patent, oropharynx clear without exudates. Moist mucosa NECK: Normal ROM, supple, no lymphadenopathy, JVD, or masses. No cervical spine tenderness. LUNGS: (+) Left lower rib tenderness to palpation, no crepitus, no step-off. Breath sounds equal, clear to auscultation bilaterally. No wheezes, and no crackles HEART: Regular rate and rhythm, normal S1 and S2, no murmurs, rubs or gallops ABDOMEN: Soft, nontender, normoactive bowel sounds. No guarding, no rebound. No masses EXTREMITIES: Atraumatic. Normal range of motion, no edema. No clubbing or cyanosis. No cords, erythema, or tenderness. Pelvis is stable. NEUROLOGICAL: Cranial nerves II through XII grossly intact. Normal speech, normal gait SKIN: Warm, Dry, normal turgor, no rashes or lesions noted. <Chelsea Scanlon - Last Filed: 10/09/16 17:05> - Vital Signs Last Vital Signs Temp Pulse Resp BP Pulse Ox 98.2 F 78 17 132/91 100 10/09/16 16:35 10/09/16 16:35 10/09/16 16:35 10/09/16 16:35 10/09/16 16:35 <Velma Stratton - Last Filed: 10/09/16 19:22> Procedures - Laceration/Wound Repair Left Face Wound Length: to 2.5 cm Wound Explored: clean Wound's Depth, Shape: superficial, irregular Irrigated w/ Saline: Yes Betadine Prep: No Anesthesia: 1% Lidocaine <Velma Stratton - Last Filed: 10/09/16 19:22> ED Treatment Course - RADIOLOGY Radiology Studies Ordered: Category Date Time Status HEAD CT WITHOUT CONTRAST [CT] Stat CT Scan 10/09/16 16:51 Ordered CHEST PA & LAT [RAD] Stat Radiology 10/09/16 16:51 Ordered <Velma Stratton - Last Filed: 10/09/16 19:22> Medical Decision Making - Medical Decision Making 10/09/16 16:58 89 yo Male with dementia, lives at home with , 24 hour home health aid, here s/p fall. was in bathroom reaching for toilet paper, fell hit forehead. no loc. ambulating after the fall. happened prior to arriva. does not take asa or other blood thinners. c/o pain in left ribs. no sob. no cough no f/c no n/v since fall. last tetanus was in november. on exam awake alert head left eye brow irreg laceration , 1 cm. no bony step off eOMI, no cervical spine tenderness. no midlien v body tendernes. lungs clear. left lower rib ttp. no crepitus. abd soft nt. nd. ext atraumatic from pelvis stable. skin warma nd dry (lac noted HEENT exam) nuero alert oriented moves all ext GCS 15 plan : ct head r/o ich, sutures to laceration, xray r/o fx. pain control <Velma Stratton - Last Filed: 10/09/16 19:22> *DC/Admit/Observation/Transfer - Attestations Scribe Attestion: 10/09/16 17:06 Documentation prepared by Chelsea Scanlon, acting as medical oncology physician for Velma Stratton MD, <Chelsea Scanlon - Last Filed: 10/09/16 17:05> <Velma Stratton - Last Filed: 10/09/16 19:22> Diagnosis at time of Disposition: Laceration of eyebrow - Discharge Dispostion Condition at time of disposition: Stable - Referrals Referrals: Devon Schofield MD [Primary Care Provider] - - Patient Instructions Printed Discharge Instructions: DI for Suture Removal, Contusion Additional Instructions: sutures placed today are absorbable and do not need to be removed. take tylenol 500 mg every 6 hours as needed for pain. return for any shortness of breath. and fever or chills or any concerns. you should follow up wtih your primary doctor within one week. call to schedule.
[2016-10-09] MEDS ORDERED: LIDO 2%/EPI 1:200000 PRESRVFRE (20 ML SDVIAL) ONE (17:03)
[2016-10-09] MEDS ORDERED: ACETAMINOPHEN 325 MG TABLET (FP) PO ONE (18:12)
[2016-10-09] MEDS ORDERED: ACETAMINOPHEN 325 MG TABLET (FP) ONE (18:14)
--- NOTE | 2016-10-09 19:44 | PDOC ---
*Physical Exam - Vital Signs Last Vital Signs Temp Pulse Resp BP Pulse Ox 98.2 F 78 17 132/91 100 10/09/16 16:35 10/09/16 16:35 10/09/16 16:35 10/09/16 16:35 10/09/16 16:35 ED Treatment Course - Medications Given in the ED: ED Medications Discontinued Medications Generic Name Dose Route Start Last Admin Trade Name Liam PRN Reason Stop Dose Admin Acetaminophen 650 mg 10/09/16 18:12 10/09/16 18:19 Tylenol - PO 10/09/16 18:13 650 mg ONCE ONE Administration Lidocaine/Epinephrine 10 ml 10/09/16 17:02 10/09/16 18:20 Xylocaine 1%-Epi 1:100,000 PNB 10/09/16 17:03 10 ml ONCE ONE Administration Progress Note - Progress Note Progress Note: Care of this patient was transferred to [place] from Dr. Alaniz at 1900 hrs. This is an 89-year-old male who presents to the emergency room status post fall. Patient hit his left-sided his chest wall as well as his head. Patient had a small laceration that was repaired by the emergency physician prior to [place]. Patient had a head CT that was negative. Dr. Alaniz read the patient's chest x-ray as possible left rib fracture. The radiologist read it as negative However a chest CT was done and showed a left eighth rib nondisplaced fracture otherwise no acute pathology. Patient will be discharged home and follow-up with his primary care doctor as needed. *DC/Admit/Observation/Transfer Diagnosis at time of Disposition: Laceration of eyebrow Qualifiers: Encounter type: initial encounter Laterality: left Qualified Code(s): S01.112A - Laceration without foreign body of left eyelid and periocular area, initial encounter Fracture of rib of left side Qualifiers: Encounter type: initial encounter Rib fracture type: single rib Fracture type: closed Qualified Code(s): S22.32XA - Fracture of one rib, left side, initial encounter for closed fracture - Discharge Dispostion Disposition: HOME Condition at time of disposition: Stable Admit: No - Referrals Referrals: Devon Schofield MD [Primary Care Provider] - - Patient Instructions Printed Discharge Instructions: Contusion, DI for Suture Removal Additional Instructions: sutures placed today are absorbable and do not need to be removed. take tylenol 500 mg every 6 hours as needed for pain. Your CAT scan of your chest shows that you have one nondisplaced rib fracture otherwise no other injuries you should follow up wtih your primary doctor within one week. call to schedule. Someone should check on you once tonight during the night. You should be arousable to your Normal level of arousability for that time of the night. If you have been vomiting, have had a seizure, or you are unable to be aroused or the person checking on you is concerned that there has been a change in your mental status they should call 911 and have you brought back to the emergency department. Return to the emergency department immediately with ANY new, persistent or worsening symptoms. Continue any medications as previously prescribed by your physician. You should follow up with your primary doctor as soon as possible regarding today's emergency department visit. . Please make sure your doctor reviews the results of your emergency evaluation. Thank you for coming to the Emergency Department today for your care. It was a pleasure to see you today. Please note that your evaluation is INCOMPLETE until you follow-up with your doctor. - Post Discharge Activity
== END 2016-10-09 19:46 | disposition home or self-care (01) ==
LOC: FER 16:35
PROC: 0HQ1XZZ Repair Face Skin, External Approach (ICD-10-PCS; principal; 2016-10-09)
DX: S01.112A Laceration without foreign body of left eyelid and periocular area, initial encounter (principal); W18.11XA Fall from or off toilet without subsequent striking against object, initial encounter; Y93.89 Activity, other specified; Y92.002 Bathroom of unspecified non-institutional (private) residence as the place of occurrence of the external cause; I10 Essential (primary) hypertension; G30.9 Alzheimer's disease, unspecified; F02.80 Dementia in other diseases classified elsewhere, unspecified severity, without behavioral disturbance, psychotic disturbance, mood disturbance, and anxiety; Z91.81 History of falling
CPT/HCPCS: 12011-25; 70450-TC; 71020-TC; 71250-TC; 99282-25

== ENCOUNTER 2017-02-04 13:56 | Inpatient (IN) | payer OTHER ==
[2017-02-04] MEDS ORDERED: ACETAMINOPHEN 1000 MG/100 ML VIAL (NON FORMULARY) IVPB ONE (14:24)
--- NOTE | 2017-02-04 14:30 | PDOC ---
History of Present Illness - General History Source: Patient, Spouse Exam Limitations: Other - History of Present Illness Initial Comments: 02/04/17 14:32 The patient is a 89 year old male, with a significant past medical history of hypertension, Alzheimers, who presents to the emergency department s/p witnessed mechanical fall at home earlier today. As per , the patient was walking down the steps into his dining room, when he slipped and fell, landing on his right side. The patient reports associated right leg and hip pain. He denies any head trauma, changes in vision, LOC, neck or back pain, numbness, or tingling. As per , the patient ambulates on his own at baseline, but is supposed to use a walker and does not like to use assistance. As per home health aide, when she arrived in at the patients home, he was found to be on the floor, awake and alert. Patient denies any abdominal pain, nausea, vomiting , diarrhea, constipation, or changes in urination. He denies any fever, chills, headache, or dizziness. He denies any chest pain, shortness of breath, diaphoresis, or palpitations. He denies any recent travel or sick contacts. Allergies: NKDA Past Surgical History: Left hip pinning. Social History: Non smoker. No ETOH or recreational drug use. PCP: Dr. Devon Schofield <Nawaf Daniel - Last Filed: 02/04/17 17:00> - General History Source: Patient, Spouse Exam Limitations: No Limitations <Mike Elmore - Last Filed: 02/04/17 18:20> - General Chief Complaint: Injury Stated Complaint: FALL, RIGHT HIP PAIN Time Seen by Provider: 02/04/17 13:57 Past History <Nawaf Daniel - Last Filed: 02/04/17 17:00> - Past Medical History Anemia: No Asthma: No Cancer: No Cardiac Disorders: No CVA: No COPD: No CHF: No DVT: No Dementia: Yes Diabetes: No GI Disorders: Yes (DIARRHEA) Disorders: No HTN: Yes Hypercholesterolemia: No Liver Disease: No Psychiatric Problems: No Seizures: No Thyroid Disease: No Lung CA: No - Surgical History Abdominal Surgery: No Appendectomy: No Cardiac Surgery: No Cholecystectomy: No Lung Surgery: No Orthopedic Surgery: Yes (LEFT HIP PINNING) - Suicide/Smoking/Psychosocial Hx Smoking History: Never smoked Have you smoked in the past 12 months: No Hx Alcohol Use: No Drug/Substance Use Hx: No Substance Use Type: None <CatarinaMike - Last Filed: 02/04/17 18:20> - Past Medical History Allergies/Adverse Reactions: Allergies Allergy/AdvReac Type Severity Reaction Status Date / Time No Known Allergies Allergy Verified 10/09/16 16:44 Home Medications: Ambulatory Orders Donepezil HCl [Aricept -] 5 mg PO DAILY 10/09/16 Quetiapine Fumarate [Seroquel -] 50 mg PO HS 10/09/16 Review of Systems - Review of Systems Able to Perform ROS?: Yes Comments:: 02/04/17 14:33 GENERAL/CONSTITUTIONAL: No fever or chills. No weakness. HEAD, EYES, EARS, NOSE AND THROAT: No change in vision. No ear pain or discharge. No sore throat. CARDIOVASCULAR: No chest pain or shortness of breath. RESPIRATORY: No cough, wheezing, or hemoptysis. GASTROINTESTINAL: No nausea, vomiting, diarrhea or constipation. GENITOURINARY: No dysuria, frequency, or change in urination. MUSCULOSKELETAL: Yes right leg and hip pain. No other joint or muscle swelling or pain. No neck or back pain. SKIN: No rash NEUROLOGIC: No headache, vertigo, loss of consciousness, or change in strength/ sensation. ENDOCRINE: No increased thirst. No abnormal weight change. HEMATOLOGIC/LYMPHATIC: No anemia, easy bleeding, or history of blood clots. ALLERGIC/IMMUNOLOGIC: No hives or skin allergy. <Nawaf Daniel - Last Filed: 02/04/17 17:00> *Physical Exam - Vital Signs Last Vital Signs Temp Pulse Resp BP Pulse Ox 97.8 F 82 18 162/95 95 02/04/17 13:57 02/04/17 13:57 02/04/17 13:57 02/04/17 13:57 02/04/17 13:57 - Physical Exam Comments: 02/04/17 14:33 GENERAL: Awake, alert, and aware in no acute distress HEAD: No signs of trauma EYES: PERRLA, EOMI, sclera anicteric, conjunctiva clear ENT: Auricles normal inspection, hearing grossly normal, nares patent, oropharynx clear without exudates. Moist mucosa NECK: Normal ROM, supple, no lymphadenopathy, JVD, or masses LUNGS: Breath sounds equal, clear to auscultation bilaterally. No wheezes, and no crackles HEART: Regular rate and rhythm, normal S1 and S2, no murmurs, rubs or gallops ABDOMEN: Soft, nontender, normoactive bowel sounds. No guarding, no rebound. No masses EXTREMITIES: Shortened and externally rotated right hip. Tenderness to the lateral right hip. No knee, ankle, or foot tenderness. No edema. No clubbing or cyanosis. No cords or erythema. Remainder of the extremities full range of motion. VASCULAR: 2+ DP pulses bilaterally. NEUROLOGICAL: Cranial nerves II through XII grossly intact. Normal speech. SKIN: Warm, Dry, normal turgor, no rashes or lesions noted. <Nawaf Daniel - Last Filed: 02/04/17 17:00> - Vital Signs Last Vital Signs Temp Pulse Resp BP Pulse Ox 97.8 F 82 18 162/95 95 02/04/17 13:57 02/04/17 13:57 02/04/17 13:57 02/04/17 13:57 02/04/17 13:57 <Mike Elmore - Last Filed: 02/04/17 18:20> Heart Score/ECG Review #1 ECG reviewed & interpreted by me at: 14:30 02/04/17 14:34 NSR 75 with 1st degree AV Block, right axis deviation, RBBB, no BECKIE, QTC 457 msec <Mike Elmore - Last Filed: 02/04/17 18:20> ED Treatment Course - LABORATORY CBC & Chemistry Diagram: 02/04/17 14:30 02/04/17 14:30 - RADIOLOGY Radiograph Interpretation: 02/04/17 16:04 EXAM: Head CT INTERPRETED BY: Dr. Diaz REVIEWED BY: Dr. Elmore IMPRESSION: Generalized volume loss with moderate ventricular dilatation and moderate to marked periventricular chronic microvascular ischemic changes. No gross acute intracranial pathology is identified. Correlate clinically to determine further evaluation and follow-up EXAM: X-Ray Hip and Pelvis INTERPRETED BY: Dr. Hayes REVIEWED BY: Dr. Elmore IMPRESSION: Acute, comminuted and impacted intertrochanteric fracture of the proximal right femur extending through the lesser trochanter. EXAM: CXR INTERPRETED BY: Dr. Allen REVIEWED BY: Dr. Elmore IMPRESSION: No acute disease. <Nawaf Daniel - Last Filed: 02/04/17 17:00> - LABORATORY CBC & Chemistry Diagram: 02/04/17 14:30 02/04/17 14:30 <Mike Elmore - Last Filed: 02/04/17 18:20> Medical Decision Making - Medical Decision Making 02/04/17 15:47 First call placed to Dr. Schofield at 15:49. Awaiting call back. Second call placed to Dr. Schofield at 16:19. Awaiting call back. Case discussed with Dr. Schofield, he requests Dr. Harrington for Admission, Dr. Lockhart for Cardiology, and Dr. Matias for Ortho. First call placed to Dr. Harrington at 16:23. Awaiting call back from Dr. Foster. Second call placed to Dr. Foster at 16:59. Awaiting call back. Case discussed with Dr. Foster at 17:01, who requests [facility]. First call placed to Dr. Matias's office at 16:38. Awaiting call back from Dr. Gottlieb. Case discussed with PIERO Ramírez at 16:43. First call placed to Dr. Lockhart at 16:40. Awaiting call back from Dr. Small. Case discussed with Dr. Small at 16:45. <Nawaf Daniel - Last Filed: 02/04/17 17:00> - Medical Decision Making 02/04/17 14:25 A portion of this note was documented by scribe services under my direction. I have reviewed the details of the note, within reason, and agree with the documentation with the following case summary and management plan written by me. Patient treated in the ED. Patient arrives by ambulance to the emergency department. Nursing notes are reviewed and incorporated into the medical decision-making. Vital signs reviewed. Peripheral IV access obtained by the nurse, laboratory studies are drawn and sent, reviewed and interpreted by myself. Vital Signs Temp Pulse Resp BP Pulse Ox 97.8 F 82 18 162/95 95 02/04/17 13:57 02/04/17 13:57 02/04/17 13:57 02/04/17 13:57 02/04/17 13:57 89-year-old male with past medical history dementia presents with mechanical fall. Patient is supposed use a walker but typically refuses. Was ambling down one step and fell and banged his right hip. Sustained a right hip pain that is shortened extremity rotated. Denies numbness or weakness. Patient unsure if he hit his head. Denies other injuries. Clinically, the patient appears to have either femoral neck or intertrochanteric fracture of the right hip. He is neurovascular intact. We'll obtain a right hip and pelvis x-ray as well as sent the patient up for preop labs and exams and admit the patient to hospital for further evaluation. 02/04/17 18:16 R intertrochanteric fracture. CBC, BMP 02/04/17 14:30 02/04/17 14:30 CMP Sodium 135 mmol/L (136-145) L 02/04/17 14:30 Potassium 4.6 mmol/L (3.5-5.1) 02/04/17 14:30 Chloride 101 mmol/L (98-107) 02/04/17 14:30 Carbon Dioxide 25 mmol/L (22-28) 02/04/17 14:30 Anion Gap 9 (8-16) 02/04/17 14:30 BUN 55 mg/dl (7-18) H D 02/04/17 14:30 Creatinine 2.1 mg/dl (0.6-1.3) H D 02/04/17 14:30 Creat Clearance w eGFR 29.89 (>60) 02/04/17 14:30 Random Glucose 108 mg/dl (74-106) H D 02/04/17 14:30 Calcium 9.3 mg/dl (8.4-10.2) 02/04/17 14:30 Total Bilirubin 0.9 mg/dl (0.2-1.0) D 02/04/17 14:30 AST 28 U/L (10-42) D 02/04/17 14:30 ALT 23 U/L (10-40) D 02/04/17 14:30 Alkaline Phosphatase 139 U/L (32-92) H 02/04/17 14:30 Troponin I < 0.03 ng/ml (0.03-0.50) L 02/04/17 14:30 Total Protein 7.7 g/dl (6.4-8.3) 02/04/17 14:30 Albumin 4.0 g/dl (3.5-5.0) 02/04/17 14:30 Urine Test Results Urine Color Yellow 02/04/17 15:50 Urine Appearance Clear 02/04/17 15:50 Urine pH 5.0 (4.5-8) D 02/04/17 15:50 Ur Specific [place] 1.015 (1.005-1.025) 02/04/17 15:50 Urine Protein Trace (NEGATIVE) 02/04/17 15:50 Urine Glucose (UA) Negative (NEGATIVE) 02/04/17 15:50 Urine Ketones Negative (NEGATIVE) 02/04/17 15:50 Urine Blood Trace-intact (NEGATIVE) H 02/04/17 15:50 Urine Nitrite Negative (NEGATIVE) 02/04/17 15:50 Urine Bilirubin Negative (NEGATIVE) 02/04/17 15:50 Ur Leukocyte Esterase Negative (NEGATIVE) 02/04/17 15:50 CT head reviewed. No intracranial hemorrhage. Pt noted to have some CRIS. BUN elevated. 500 cc of NS ordered for presumed pre- renal acute kidney injury. Macias catheter ordered. Case discussed with DR. Campos. Requests DR. Lockhart for cards consult, Dr. Matias for ortho consult, and Dr. Tigre Harrington for admission. Case discussed with DR. Slater. She will follow up patient for med clearance. As per Dr. Campos, he will fax the previous cardiology reports tomorrow morning on 02/05 at [address] the ED[address] Dr. Slater aware that reports will be faxed tomorrow morning (which is needed for surgery clearance). Case discussed with PIERO Palacios from Dr. Matias's service. Requests pt is NPO after midnight. Will likely pursue surgery tomorrow. Case discussed with DR. Foster who requests admission to [facility]. Case discussed with [facility] hospitalist. Case admitted to med/surg admission. Case discussed in detail with admitting physician including history, physical exam and ancillary studies. Admitting physician has assumed care for the patient, will follow all pending diagnostics and will complete the evaluation and treatment. <Mike Elmore - Last Filed: 02/04/17 18:20> *DC/Admit/Observation/Transfer - Attestations Scribe Attestion: 02/04/17 14:33 Documentation prepared by Nawaf Daniel, acting as medical doctor for Mike Elmore MD. <Nawaf Daniel - Last Filed: 02/04/17 17:00> - Discharge Dispostion Admit: Yes <Mike Elmore - Last Filed: 02/04/17 18:20> Diagnosis at time of Disposition: Hip fracture Qualifiers: Encounter type: initial encounter Fracture type: closed Laterality: right Qualified Code(s): S72.001A - Fracture of unspecified part of neck of right femur, initial encounter for closed fracture - Discharge Dispostion Condition at time of disposition: Stable - Referrals Referrals: Devon Schofield MD [Primary Care Provider] -
[2017-02-04] MEDS ORDERED: ACETAMINOPHEN INJECTION 100 ML IVPB ONE (15:07)
[2017-02-04 15:25] LABS: ALK PHOS 139 U/L (32-92); ANION GAP 9 (8-16); BILIRUBIN,TOTAL 0.9 mg/dl (0.2-1.0); CALCIUM 9.3 mg/dl (8.4-10.2); CO2 25 mmol/L (22-28); CREATININE 2.1 mg/dl (0.6-1.3); GLUCOSE,RANDOM 108 mg/dl (74-106); SGOT/AST 28 U/L (10-42); SGPT/ALT 23 U/L (10-40); TOT PROT 7.7 g/dl (6.4-8.3)
[2017-02-04 15:39] LABS: BASOPHIL 0.2 % (0-2.0); EOSINOPHIL 1.2 % (0-4.5); MCHC 32.8 g/dl (32.0-35.9); MEAN CELL VOLUME 94.7 fl (80-96); MEAN PLT VOLUME 10.7 fl (7.5-11.1); PLATELET COUNT 223 K/MM3 (134-434); RDW 13.9 % (11.9-15.9); WHITE BLOOD COUNT 9.5 K/mm3 (4.0-10.8)
[2017-02-04] MEDS ORDERED: SODIUM CHLORIDE 500 ML IV STA (15:42)
[2017-02-04] MEDS ORDERED: morphine CARPU-JECT 2 MG/1 ML DISP.SYRIN IVPUSH ONE (16:21)
[2017-02-04] MEDS ORDERED: morphine CARPU-JECT 2 MG/1 ML DISP.SYRIN ONE (16:22)
[2017-02-04 16:53] LABS: URINE APPEARANCE Clear; URINE BILIRUBIN Negative (NEGATIVE); URINE GLUCOSE (UA) Negative (NEGATIVE); URINE KETONE Negative (NEGATIVE); URINE LEUK ESTERASE Negative (NEGATIVE); URINE NITRITE Negative (NEGATIVE); URINE PROTEIN Trace (NEGATIVE); URINE UROBILINOGEN 0.2 (0.2-1.0)
[2017-02-04 16:55] LABS: URINE BLOOD Trace-intact (NEGATIVE); URINE COLOR YELLOW
[2017-02-04] MEDS ORDERED: ACETAMINOPHEN 325 MG TABLET (FP) PO PRN (17:57)
[2017-02-04 18:40] VITALS: BMI 15.2
[2017-02-04] MEDS: SODIUM CHLORIDE 1,000 ML IV SCH (19:22)
[2017-02-04 19:34] LABS: ACTIVATED PTT 32.7 SECONDS (24.0-38.9)
[2017-02-04 19:39] LABS: INR 0.97 (0.82-1.09); PROTHROMBIN TIME (PATIENT) 10.9 SEC (10.2-13.0)
[2017-02-04 20:26] LABS: URINE WBC 0-3 (0-2)
[2017-02-04 20:29] LABS: URINE BACTERIA 2+ /hpf (NEGATIVE)
[2017-02-04] MEDS: morphine SULFATE 4 MG/ML VIAL IVPUSH PRN (21:44)
--- NOTE | 2017-02-04 22:15 | HP ---
CHIEF COMPLAINT: fall PCP: Kanwal HISTORY OF PRESENT ILLNESS: This is an 89 year old male with a significant past medical history of alzheimer 's dementia who presented to the ED s/p mechanical fall with R hip pain. Xrays revealed comminuted/impacted IT fracture. Upon exam pt reports pain is "better" ; he received morphine approx 20 min prior to my exam. Pt denies falling today and reports that his hip has been no good lately. he also repeatedly asks me the same question and reports the time as "8 minutes after 12." It is actually 10:10. ER course was notable for: (1) Xray hip with IT fracture Recent Travel: unknown PAST MEDICAL HISTORY: HTN Alzheimer's dementia chronic diarrhea PAST SURGICAL HISTORY: L hip pinning Social History: resides with Smoking: none Alcohol: none Drugs: none Family History: unk, pt unable to answer Allergies No Known Allergies Allergy (Verified 10/09/16 16:44) HOME MEDICATIONS: 3 Medication Instructions Recorded Donepezil HCl [Aricept -] 5 mg PO DAILY 10/09/16 Quetiapine Fumarate [Seroquel -] 50 mg PO HS 10/09/16 REVIEW OF SYSTEMS CONSTITUTIONAL: Absent: fever, chills, diaphoresis, generalized weakness, malaise, loss of appetite, weight change HEENT: Absent: rhinorrhea, nasal congestion, throat pain, throat swelling, difficulty swallowing, mouth swelling, ear pain, eye pain, visual changes CARDIOVASCULAR: Absent: chest pain, syncope, palpitations, irregular heart rate, lightheadedness , peripheral edema RESPIRATORY: Absent: cough, shortness of breath, dyspnea with exertion, orthopnea, wheezing, stridor, hemoptysis GASTROINTESTINAL: Absent: abdominal pain, abdominal distension, nausea, vomiting, diarrhea, constipation, melena, hematochezia GENITOURINARY: Absent: dysuria, frequency, urgency, hesitancy, hematuria, flank pain, genital pain MUSCULOSKELETAL: Present: R hip pain Absent: myalgia, arthralgia, back pain, neck pain SKIN: Absent: rash, itching, pallor HEMATOLOGIC/IMMUNOLOGIC: Absent: easy bleeding, easy bruising, lymphadenopathy, frequent infections ENDOCRINE: Absent: unexplained weight gain, unexplained weight loss, heat intolerance, cold intolerance NEUROLOGIC: Absent: headache, focal weakness or paresthesias, dizziness, unsteady gait, seizure, mental status changes, bladder or bowel incontinence PSYCHIATRIC: Absent: anxiety, depression, suicidal or homicidal ideation, hallucinations. PHYSICAL EXAMINATION Vital Signs - 24 hr 3 02/04/17 02/04/17 02/04/17 13:57 17:57 18:08 Temperature 97.8 F 97.4 F L Pulse Rate 82 65 Pulse Rate [ 72 Right Radial] Respiratory 18 15 16 Rate Blood Pressure 162/95 131/85 Blood Pressure 129/75 [Right Arm] O2 Sat by Pulse 95 95 95 Oximetry (%) GENERAL: Awake, alert, and oriented to person only, in no acute distress. HEAD: Normal with no signs of trauma. EYES: Pupils equal, round and reactive to light, extraocular movements intact, sclera anicteric, conjunctiva clear. No lid lag. EARS, NOSE, THROAT: Ears normal, nares patent, oropharynx clear without exudates. Moist mucous membranes. NECK: Normal range of motion, supple without lymphadenopathy, JVD, or masses. LUNGS: Breath sounds equal, clear to auscultation bilaterally. No wheezes, and no crackles. No accessory muscle use. HEART: Regular rate and rhythm, normal S1 and S2 without murmur, rub or gallop. ABDOMEN: Soft, nontender, not distended, normoactive bowel sounds, no guarding, no rebound, sno masses. No hepatomegaly or splenomegaly. MUSCULOSKELETAL: Normal range of motion at all joints except right hip. No CVA tenderness. + right hip deformity, leg external rotated and shortened. + pain on palpation, refused ROM. UPPER EXTREMITIES: 2+ pulses, warm, well-perfused. No cyanosis. No clubbing. No peripheral edema. LOWER EXTREMITIES: 2+ pulses, warm, well-perfused. No calf tenderness. No peripheral edema. NEUROLOGICAL: Cranial nerves II-XII intact. Normal speech. Normal gait. PSYCHIATRIC: Cooperative. Good eye contact. Appropriate mood and affect. SKIN: Warm, dry, normal turgor, no rashes or lesions noted, normal capillary refill. Laboratory Results - last 24 hr 3 02/04/17 02/04/17 02/04/17 14:30 14:30 14:30 WBC 9.5 D RBC 4.15 Hgb 12.9 Hct 39.3 MCV 94.7 MCH 31.0 MCHC 32.8 RDW 13.9 D Plt Count 223 D MPV 10.7 D Neutrophils % 84.0 H Lymphocytes % 9.9 D Monocytes % 4.7 Eosinophils % 1.2 Basophils % 0.2 PT with INR 10.9 INR 0.97 PTT (Actin FS) 32.7 Sodium 135 L Potassium 4.6 Chloride 101 Carbon Dioxide 25 Anion Gap 9 BUN 55 H D Creatinine 2.1 H D Creat Clearance w eGFR 29.89 Random Glucose 108 H D Calcium 9.3 Total Bilirubin 0.9 D AST 28 D ALT 23 D Alkaline Phosphatase 139 H Troponin I Total Protein 7.7 Albumin 4.0 Urine Color Urine Appearance Urine pH Ur Specific [place] Urine Protein Urine Glucose (UA) Urine Ketones Urine Blood Urine Nitrite Urine Bilirubin Urine Urobilinogen Ur Leukocyte Esterase Urine RBC Urine WBC Ur Epithelial Cells Amorphous Urates Urine Bacteria Blood Type Antibody Screen 3 02/04/17 02/04/17 02/04/17 14:30 14:30 15:50 WBC RBC Hgb Hct MCV MCH MCHC RDW Plt Count MPV Neutrophils % Lymphocytes % Monocytes % Eosinophils % Basophils % PT with INR INR PTT (Actin FS) Sodium Potassium Chloride Carbon Dioxide Anion Gap BUN Creatinine Creat Clearance w eGFR Random Glucose Calcium Total Bilirubin AST ALT Alkaline Phosphatase Troponin I < 0.03 L Total Protein Albumin Urine Color Yellow Urine Appearance Clear Urine pH 5.0 D Ur Specific [place] 1.015 Urine Protein Trace Urine Glucose (UA) Negative Urine Ketones Negative Urine Blood Trace-intact H Urine Nitrite Negative Urine Bilirubin Negative Urine Urobilinogen 0.2 Ur Leukocyte Esterase Negative Urine RBC 2-5 Urine WBC 0-3 Ur Epithelial Cells Moderate Amorphous Urates Few Urine Bacteria 2+ Blood Type A POSITIVE Antibody Screen Negative ECG sinus rhythm with 1st degree AV block vent rate 74, QTC 459 RBBB suspect arm lead reversal Radiology Reports EXAM: Head CT INTERPRETED BY: Dr. Diaz IMPRESSION: Generalized volume loss with moderate ventricular dilatation and moderate to marked periventricular chronic microvascular ischemic changes. No gross acute intracranial pathology is identified. Correlate clinically to determine further evaluation and follow-up EXAM: X-Ray Hip and Pelvis INTERPRETED BY: Dr. Hayes IMPRESSION: Acute, comminuted and impacted intertrochanteric fracture of the proximal right femur extending through the lesser trochanter. EXAM: CXR INTERPRETED BY: Dr. Allen IMPRESSION: No acute disease. ASSESSMENT/PLAN: 89yM with PMH HTN, Alz dementia and chronic diarrhea who presented with R hip pain s/p fall. R hip fracture - ortho consult with dr. Matias, npo after MN. - bedrest, limit movement - remove FC, if pt unable to utilize urinal then replace cath until postop CRIS - cont NS @ 83cc/hr - likely due to hypovolemia r/t poor po intake due to AD - repeat BMP in am HTN - on no home meds as per list, monitor BP and initiate anti HTN PRN - PCP to fax over cardiac workup done in office, ED consulted cardiology - repeat ECG in am as limb lead reversal suspected Alzheimer's dementia - cont aricept - will hold seroquel for now until can be verified with PCP. DVT PPX - will start heparin post op; if pt does not go to the OR tomorrow, initiate heparin FEN - NS @ 83cc/hr - BMP in am - low sodium diet until midnight, then NPO for or Dispo: Pt currently requires inpatient management of his emergent condition and expected LOS is >2MN Visit type - Emergency Visit Emergency Visit: Yes ED Registration Date: 02/04/17 Care time: The patient presented to the Emergency Department on the above date and was hospitalized for further evaluation of their emergent condition. - New Patient This patient is new to me today: Yes Date on this admission: 02/04/17 - Critical Care Critical Care patient: No
[2017-02-05 07:46] LABS: BASOPHIL 0.6 % (0-2.0); EOSINOPHIL 2.5 % (0-4.5); MCH 30.9 pg (25.7-33.7); MCHC 32.6 g/dl (32.0-35.9); MEAN CELL VOLUME 94.9 fl (80-96); NEUTROPHILS 81.1 % (42.8-82.8); PLATELET COUNT 163 K/MM3 (134-434); RDW 14.2 % (11.9-15.9); WHITE BLOOD COUNT 8.8 K/mm3 (4.0-10.8)
--- NOTE | 2017-02-05 08:03 | CON.ORTH ---
Consult Reason for Consultation:: right hip fx - Past Medical History Cardio/Vascular: Yes: CHF, HTN - Alcohol/Substance Use Hx Alcohol Use: No - Smoking History Smoking history: Never smoked Have you smoked in the past 12 months: No Home Medications - Allergies Allergies/Adverse Reactions: Allergies Allergy/AdvReac Type Severity Reaction Status Date / Time No Known Allergies Allergy Verified 10/09/16 16:44 - Home Medications Home Medications: Ambulatory Orders Donepezil HCl [Aricept -] 5 mg PO DAILY 10/09/16 Quetiapine Fumarate [Seroquel -] 50 mg PO HS 10/09/16 Physical Exam for Ortho Vital Signs: Vital Signs Temperature 98.8 F 02/05/17 06:00 Pulse Rate 72 02/05/17 06:00 Respiratory Rate 19 02/05/17 06:00 Blood Pressure 126/77 02/05/17 06:00 O2 Sat by Pulse Oximetry (%) 98 02/05/17 06:00 Labs: CBC, BMP 02/05/17 07:30 INR, PTT INR 0.97 (0.82-1.09) 02/04/17 14:30 - Lower Extremity Hip: Yes: Right, Decreased ROM, Leg Externally Rotated, Leg Shortened, Pain, Swelling, Other (nvi) Imaging - Results X-ray: Report Reviewed, Image Reviewed Assessment/Plan 89 year old male with a significant past medical history of alzheimer's dementia who presented to the ED s/p mechanical fall with R hip pain. Xrays revealed comminuted/impacted IT fracture. a/p- right IT fx- displaced Risks and benefits were d/w pt Dr. Matias discussed surgery with pts son OR for right IM gamma nail Surgical clearance NPO case seen with Dr. Matias
[2017-02-05 08:17] LABS: ANION GAP 6 (8-16); CALCIUM 8.7 mg/dl (8.4-10.2); CO2 24 mmol/L (22-28); CREATININE 1.9 mg/dl (0.6-1.3); GLUCOSE,RANDOM 112 mg/dl (74-106); MAGNESIUM 1.8 mg/dL (1.8-2.4); PHOSPHOROUS 3.8 mg/dl (2.5-4.6)
--- NOTE | 2017-02-05 08:28 | PN ---
Physical Exam: SUBJECTIVE: Patient seen and examined, reports ongoing right hip pain, worse upon movement, patient denies any paresthesia to the extremity. OBJECTIVE: patient is 89 y/o male with a past medical history of hypertension, chronic kidney disease and alzhemier's dementia. Patient was admitted from the emergency department for right intrathrocantic hip fracture. Vital Signs Period Temp Pulse Resp BP Sys/Ríos Pulse Ox Last 24 Hr 97.4 F-98.8 F 65-82 15-19 122-162/73-95 95-98 GENERAL: The patient is awake, alert, and fully oriented, in no acute distress. HEAD: Normal with no signs of trauma. EYES: PERRL, extraocular movements intact, sclera anicteric, conjunctiva clear. No ptosis. ENT: Ears normal, nares patent, oropharynx clear without exudates, moist mucous membranes. NECK: Trachea midline, full range of motion, supple. LUNGS: Breath sounds equal, clear to auscultation bilaterally, no wheezes, no crackles, no accessory muscle use. HEART: Regular rate and rhythm, S1, S2 without murmur, rub or gallop. ABDOMEN: Soft, nontender, nondistended, normoactive bowel sounds, no guarding, no rebound, no hepatosplenomegaly, no masses. EXTREMITIES: 2+ pulses, warm, well-perfused, no edema. RIGHT LOWER EXTREMITY: externally shortened and rotated, point tenderness to the right proximal thigh, less than 3 second capillary refill, +3 pedal pulse. NEUROLOGICAL: Cranial nerves II through XII grossly intact. Normal speech, gait not observed. PSYCH: Normal mood, normal affect. SKIN: Warm, dry, normal turgor, no rashes or lesions noted Laboratory Results - last 24 hr 02/04/17 02/04/17 02/04/17 14:30 14:30 14:30 WBC 9.5 D RBC 4.15 Hgb 12.9 Hct 39.3 MCV 94.7 MCH 31.0 MCHC 32.8 RDW 13.9 D Plt Count 223 D MPV 10.7 D Neutrophils % 84.0 H Lymphocytes % 9.9 D Monocytes % 4.7 Eosinophils % 1.2 Basophils % 0.2 PT with INR 10.9 INR 0.97 PTT (Actin FS) 32.7 Sodium 135 L Potassium 4.6 Chloride 101 Carbon Dioxide 25 Anion Gap 9 BUN 55 H D Creatinine 2.1 H D Creat Clearance w eGFR 29.89 Random Glucose 108 H D Calcium 9.3 Total Bilirubin 0.9 D AST 28 D ALT 23 D Alkaline Phosphatase 139 H Troponin I Total Protein 7.7 Albumin 4.0 Urine Color Urine Appearance Urine pH Ur Specific Alpine Urine Protein Urine Glucose (UA) Urine Ketones Urine Blood Urine Nitrite Urine Bilirubin Urine Urobilinogen Ur Leukocyte Esterase Urine RBC Urine WBC Ur Epithelial Cells Amorphous Urates Urine Bacteria Blood Type Antibody Screen 02/04/17 02/04/17 02/04/17 14:30 14:30 15:50 WBC RBC Hgb Hct MCV MCH MCHC RDW Plt Count MPV Neutrophils % Lymphocytes % Monocytes % Eosinophils % Basophils % PT with INR INR PTT (Actin FS) Sodium Potassium Chloride Carbon Dioxide Anion Gap BUN Creatinine Creat Clearance w eGFR Random Glucose Calcium Total Bilirubin AST ALT Alkaline Phosphatase Troponin I < 0.03 L Total Protein Albumin Urine Color Yellow Urine Appearance Clear Urine pH 5.0 D Ur Specific Alpine 1.015 Urine Protein Trace Urine Glucose (UA) Negative Urine Ketones Negative Urine Blood Trace-intact H Urine Nitrite Negative Urine Bilirubin Negative Urine Urobilinogen 0.2 Ur Leukocyte Esterase Negative Urine RBC 2-5 Urine WBC 0-3 Ur Epithelial Cells Moderate Amorphous Urates Few Urine Bacteria 2+ Blood Type A POSITIVE Antibody Screen Negative 02/05/17 07:30 WBC 8.8 RBC 3.38 L Hgb 10.4 L D Hct 32.1 L D MCV 94.9 MCH 30.9 MCHC 32.6 RDW 14.2 Plt Count 163 D MPV 10.0 Neutrophils % 81.1 Lymphocytes % 9.9 Monocytes % 5.9 Eosinophils % 2.5 D Basophils % 0.6 PT with INR INR PTT (Actin FS) Sodium Potassium Chloride Carbon Dioxide Anion Gap BUN Creatinine Creat Clearance w eGFR Random Glucose Calcium Total Bilirubin AST ALT Alkaline Phosphatase Troponin I Total Protein Albumin Urine Color Urine Appearance Urine pH Ur Specific Alpine Urine Protein Urine Glucose (UA) Urine Ketones Urine Blood Urine Nitrite Urine Bilirubin Urine Urobilinogen Ur Leukocyte Esterase Urine RBC Urine WBC Ur Epithelial Cells Amorphous Urates Urine Bacteria Blood Type Antibody Screen Active Medications Generic Name Dose Route Start Last Admin Trade Name Freq PRN Reason Stop Dose Admin Acetaminophen 650 mg 02/04/17 17:57 Tylenol - PO Q4H PRN FEVER OR PAIN Donepezil HCl 5 mg 02/05/17 10:00 Aricept - PO DAILY SAVANNAH Sodium Chloride 1,000 mls @ 83 mls/hr 02/04/17 18:00 02/04/17 19:22 Normal Saline - IV 83 mls/hr ASDIR SAVANNAH Administration Morphine Sulfate 1 mg 02/04/17 17:57 02/04/17 21:44 Morphine Sulfate IVPUSH 1 mg Q4H PRN Administration PAIN IMAGING Right hip/pelvis: impacted, comminuted right intrathrocantic fracture chest xray: no acute disease head ct: no acute pathology ASSESSMENT/PLAN: 1) MS intrathrocantic hip fracture s/p mechanical fall - orthopedist, Dr Matias, consulted and followed, patient is pending OR today - prn pain medication, morphine - scd/cyndee, incentive spirometer 2) cardiovascular hypertension -b/p at goal, continue toprol home dose - echo 07/02, grade I diastolic dysfunction, mild , ef 73% - 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, unchanged from prior ekg 12/17/16 - cardiology input appreciated, Dr Small 3) nephrology acute on chronic renal insufficency - creatine 1.9 baseline 1.5, secondary to hypovolemia, - avoid nephrotoxic agents, close monitoring, repeat creatine at 1800 4) neuro alzheimer's dementia - continue aricept and seroquel, dose verifed with PCP Dr Schofield f/e/n - npo pending or-->ivf - replete magnesium, keep magnesium above 2.0 ppx - hold ac pending or - scd/cyndee - pepcid patient is medically optimized for procedure Dispo: Pt currently requires inpatient management of his emergent condition and expected LOS is >2MN Visit type - Emergency Visit Emergency Visit: Yes ED Registration Date: 02/04/17 Care time: The patient presented to the Emergency Department on the above date and was hospitalized for further evaluation of their emergent condition. - New Patient This patient is new to me today: Yes Date on this admission: 02/05/17 - Critical Care Critical Care patient: No - Discharge Referral Referred to [facility] Med P.C.: No
[2017-02-05] MEDS: DONEPEZIL HCL 5 MG TABLET (FP) PO SCH (09:38)
--- NOTE | 2017-02-05 09:49 | CON.CARD ---
Cardiology Consult (text) - Consultation Consultation Note: CC: pre-op clearance 89 yo with h/o htn, mild as, alzheimer's dementia who presented to the ED s/p mechanical fall now found to have comminuted/impacted IT fracture with plan for surgery today. Limited hx b/c of dementia. Per report, fell in front of . Mechanical fall. No loc. no dizziness or palps. Per report no hx of CVA, DM, CAD, CHF. No known h/o afib/svt. Cr currently above baseline. 2.0 on admit, 1.9 today. bline cr 1.5. per report no orthopnea, pnd, le edema, cp, sob, palps, dizziness, bleeding. PAST MEDICAL HISTORY: HTN Alzheimer's dementia chronic diarrhea PAST SURGICAL HISTORY: L hip pinning Social History: resides with , non-smoker per report ROS: per hpi. no f/c/s, cough, congestion, rashes. n/v, visual disturbances. Currently denies pain or discomfort. Ambulatory Orders Donepezil HCl [Aricept -] 5 mg PO DAILY 10/09/16 Quetiapine Fumarate [Seroquel -] 50 mg PO HS 10/09/16 Metoprolol Succinate [Toprol Xl -] 25 mg PO DAILY 02/05/17 Current Medications Acetaminophen (Tylenol -) 650 mg PO Q4H PRN PRN Reason: FEVER OR PAIN Donepezil HCl (Aricept -) 5 mg PO DAILY SAVANNAH Sodium Chloride (Normal Saline -) 1,000 mls @ 83 mls/hr IV ASDIR SAVANNAH Last Admin: 02/04/17 19:22 Dose: 83 mls/hr Magnesium Sulfate (Magnesium Sulfate) 1 gm IVPB ONCE ONE Stop: 02/05/17 09:51 Morphine Sulfate (Morphine Sulfate) 1 mg IVPUSH Q4H PRN PRN Reason: PAIN Last Admin: 02/04/17 21:44 Dose: 1 mg Vital Signs - 24 hr 02/04/17 02/04/17 02/04/17 13:57 17:57 18:08 Temperature 97.8 F 97.4 F L Pulse Rate 82 65 Pulse Rate [ 72 Right Radial] Respiratory 18 15 16 Rate Blood Pressure 162/95 131/85 Blood Pressure 129/75 [Right Arm] O2 Sat by Pulse 95 95 95 Oximetry (%) 02/04/17 02/04/17 02/05/17 21:00 21:57 06:00 Temperature 97.5 F L 98.8 F Pulse Rate 78 72 Pulse Rate [ Right Radial] Respiratory 19 19 Rate Blood Pressure 122/73 126/77 Blood Pressure [Right Arm] O2 Sat by Pulse 98 97 98 Oximetry (%) Intake & Output 02/03/17 02/04/17 02/05/17 02/06/17 07:59 07:59 07:59 07:59 Intake Total 870 0 Output Total 1150 Balance -280 0 Weight 100 lb nad, calm, cachectic jvd flat, neck supple + squeaks/trace wheezes. nl effort rrr nl s1, s2 no 2/6 sys murmur at sternal border and at apex (Heart sounds difficult to hear b/c of increased pulmonary/thoracic sounds). Non-displaced pmi. + bs soft nt nd ext without e/c/c alert, not oriented. + dp/pt no carotid bruits no jaundice, diaphoresis. CBC, BMP 02/05/17 07:30 02/05/17 07:30 Laboratory Tests 02/04/17 02/04/17 02/05/17 14:30 14:30 07:30 Magnesium 1.8 Total Bilirubin 0.9 D AST 28 D ALT 23 D Alkaline Phosphatase 139 H Troponin I < 0.03 L Albumin 4.0 EKG 02/04/17: sr with av delay. rbbb. non-specific st-twave ab. (improved from office EKG when hr was 101 bpm) EKG 02/05/17: sr with av delay and atrial run. otherwise similar. tele: intermittent svt (atach?), atrial runs echo 06/2016: tds. nl lv/rv. 1+ as, 1+ ar, 1+ mac cxr: wnl. reviewed prior chest ct. 89 yo with h/o htn, mild as, alzheimer's dementia who presented to the ED s/p mechanical fall now found to have comminuted/impacted IT fracture with plan for surgery today. pre-op clearance - Accuracy of RCRI may be limited due to limited history acquisition. RCRI of 0 -1 with poor functional status and advanced age. Estimated donovan-operative CV risk is low-intermediate. Patient with runs of SVT, would give IV BB as needed. Resume home toprol post-op once bp > 110. - suspect underlying pulmonary disease, close monitoring of o2 sat post-op. HTN - currently normotensive off anti-hypertensives. Monitor bp post-op with BB. runs of regular svt/atrial runs. - lyte repletion prn - pain control, hydration per pmd/surgery - BB as above. - con't tele monitoring post-op
[2017-02-05] MEDS ORDERED: MAGNESIUM SULF 50% (8.12 MEQ/2 ML-1 GM VIAL) IVPB ONE (09:50)
[2017-02-05] MEDS: METOPROLOL SUCCINATE 25 MG TAB.SR.24H (FP) PO SCH (10:12)
[2017-02-05] MEDS ORDERED: LACTATED RINGERS SOLUTION 1,000 ML IV SCH (11:45)
--- NOTE | 2017-02-05 11:46 | OP ---
Operative Note - Note: Operative Date: 02/05/17 (hien) Pre-Operative Diagnosis: right IT fx Operation: right IM gamma nail Post-Operative Diagnosis: Same as Pre-op Surgeon: Yordan Matias Anesthesia: Spinal, Local Estimated Blood Loss (mls): 50 Operative Report Dictated: Yes
[2017-02-05] MEDS: SODIUM CHLORIDE 1,000 ML IV SCH (17:12)
[2017-02-05 18:18] LABS: BASOPHIL 0.2 % (0-2.0); EOSINOPHIL 0.9 % (0-4.5); MCH 31.4 pg (25.7-33.7); MEAN CELL VOLUME 95.2 fl (80-96); NEUTROPHILS 85.7 % (42.8-82.8); PLATELET COUNT 156 K/MM3 (134-434); RDW 13.8 % (11.9-15.9); WHITE BLOOD COUNT 9.3 K/mm3 (4.0-10.8)
--- NOTE | 2017-02-05 18:28 | EKG ---
Test Reason : Blood Pressure : / mmHG Vent. Rate : 081 BPM Atrial Rate : 081 BPM P-R Int : 000 ms QRS Dur : 122 ms QT Int : 408 ms P-R-T Axes : 000 099 012 degrees QTc Int : 473 ms POOR DATA QUALITY, INTERPRETATION MAY BE ADVERSELY AFFECTED SINUS RHYTHM WITH 1ST DEGREE A-V BLOCK WITH PREMATURE SUPRAVENTRICULAR COMPLEXES AND ECTOPIC ATRIAL RHYTHM / TACHYCARDIA RIGHTWARD AXIS RIGHT BUNDLE BRANCH BLOCK (RBBB AND LEFT POSTERIOR FASCICULAR BLOCK) NONSPECIFIC ST AND T WAVE ABNORMALITY ABNORMAL ECG WHEN COMPARED WITH ECG OF 04-FEB-2017 14:32, PREMATURE SUPRAVENTRICULAR COMPLEXES ARE NOW PRESENT OTHER CHANGES MENTIONED ABOVE REPEAT EKG IF CLINICALLY INDICATED Confirmed by JERARDO MENDEZ MD ([id number]) on 02/05/2017 6:28:09 PM Referred By: MATTHEW HINSON Confirmed By:JERARDO MENDEZ MD
[2017-02-05 18:33] LABS: ALBUMIN 3.3 g/dl (3.5-5.0); ALK PHOS 100 U/L (32-92); BILIRUBIN,TOTAL 0.7 mg/dl (0.2-1.0); CREATININE 1.8 mg/dl (0.6-1.3); GLUCOSE,RANDOM 122 mg/dl (74-106); MAGNESIUM 1.9 mg/dL (1.8-2.4); PHOSPHOROUS 4.1 mg/dl (2.5-4.6); SGOT/AST 26 U/L (10-42); SGPT/ALT 19 U/L (10-40); TOT PROT 6.1 g/dl (6.4-8.3)
--- NOTE | 2017-02-05 18:33 | EKG ---
Test Reason : Blood Pressure : / mmHG Vent. 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
[2017-02-05] MEDS: CEFAZOLIN 1 GM/D5W 1 GRAM/50 ML BAG IVPB SCH (18:44)
[2017-02-05 19:23] LABS: ANION GAP 8 (8-16); CALCIUM 8.5 mg/dl (8.4-10.2); CO2 24 mmol/L (22-28)
[2017-02-05] MEDS: morphine SULFATE 4 MG/ML VIAL IVPUSH PRN (20:52)
[2017-02-05] MEDS: FAMOTIDINE 20 MG TABLET PO SCH (21:08)
[2017-02-06] MEDS: CEFAZOLIN 1 GM/D5W 1 GRAM/50 ML BAG IVPB SCH (06:46)
--- NOTE | 2017-02-06 07:44 | PN ---
Progress Note (short form) - Note Progress Note: Ortho Pt seen and examined s/p right IM gamma nail pod #1. Pt non-compliant pulling out IV and dressing Selected Entries 02/06/17 03:00 Temperature 97.6 F Pulse Rate 78 Respiratory 18 Rate Blood Pressure 128/58 dressing c/d/i, calf soft, nt nvi cbc pending a/p PT if able PWB with walker dvt ppx pain control d/c planning
[2017-02-06 08:10] LABS: BASOPHIL 0.1 % (0-2.0); EOSINOPHIL 1.6 % (0-4.5); MCH 31.2 pg (25.7-33.7); MCHC 32.8 g/dl (32.0-35.9); MEAN CELL VOLUME 95.1 fl (80-96); MEAN PLT VOLUME 10.1 fl (7.5-11.1); NEUTROPHILS 83.8 % (42.8-82.8); PLATELET COUNT 141 K/MM3 (134-434); RDW 13.4 % (11.9-15.9); WHITE BLOOD COUNT 9.1 K/mm3 (4.0-10.8)
[2017-02-06 08:28] LABS: ANION GAP 9 (8-16); CALCIUM 8.7 mg/dl (8.4-10.2); CO2 24 mmol/L (22-28); CREATININE 1.9 mg/dl (0.6-1.3); GLUCOSE,RANDOM 104 mg/dl (74-106); PHOSPHOROUS 4.3 mg/dl (2.5-4.6)
--- NOTE | 2017-02-06 08:38 | PN ---
Physical Exam: SUBJECTIVE: Patient seen and examined, denies pain at rest, reports pain to right lower extremity upon movement, patient removed surgical dressing, pulled out iv line OBJECTIVE:patient is 89 y/o male with a past medical history of hypertension, chronic kidney disease and alzhemier's dementia. Patient was admitted from the emergency department for right intrathrocantic hip fracture, s/p right gamma nail Vital Signs Period Temp Pulse Resp BP Sys/Ríos Pulse Ox Last 24 Hr 97.3 F-97.8 F 52-671 16-20 93-133/49-77 95-99 GENERAL: The patient is awake, alert, and oriented times person, agitated HEAD: Normal with no signs of trauma. EYES: PERRL, extraocular movements intact, sclera anicteric, conjunctiva clear. No ptosis. ENT: Ears normal, nares patent, oropharynx clear without exudates, moist mucous membranes. NECK: Trachea midline, full range of motion, supple. LUNGS: Breath sounds equal, clear to auscultation bilaterally, no wheezes, no crackles, no accessory muscle use. HEART: Regular rate and rhythm, S1, S2 without murmur, rub or gallop. ABDOMEN: Soft, nontender, nondistended, normoactive bowel sounds, no guarding, no rebound, no hepatosplenomegaly, no masses. EXTREMITIES: 2+ pulses, warm, well-perfused, no edema. RIGHT LOWER EXTREMITY: patient removed aquacel dressing, 4x4 tape to surgical site, wound well approximated NEUROLOGICAL: Cranial nerves II through XII grossly intact. Normal speech, gait not observed. PSYCH: Normal mood, normal affect. SKIN: Warm, dry, normal turgor, no rashes or lesions noted Laboratory Results - last 24 hr 02/05/17 02/05/17 02/06/17 17:58 17:58 07:00 WBC 9.3 9.1 RBC 2.97 L 2.91 L Hgb 9.3 L D 9.1 L Hct 28.3 L 27.7 L MCV 95.2 95.1 MCH 31.4 31.2 MCHC 33.0 32.8 RDW 13.8 13.4 Plt Count 156 141 MPV 10.0 10.1 Neutrophils % 85.7 H 83.8 H Lymphocytes % 7.0 L D 8.4 Monocytes % 6.2 6.1 Eosinophils % 0.9 1.6 Basophils % 0.2 0.1 Sodium 136 Potassium 4.8 Chloride 104 Carbon Dioxide 24 Anion Gap 8 BUN 37 H Creatinine 1.8 H Creat Clearance w eGFR 35.70 Random Glucose 122 H Calcium 8.5 Phosphorus 4.1 Magnesium 1.9 Total Bilirubin 0.7 D AST 26 ALT 19 Alkaline Phosphatase 100 H D Total Protein 6.1 L D Albumin 3.3 L 02/06/17 07:00 WBC RBC Hgb Hct MCV MCH MCHC RDW Plt Count MPV Neutrophils % Lymphocytes % Monocytes % Eosinophils % Basophils % Sodium 137 Potassium 5.0 Chloride 104 Carbon Dioxide 24 Anion Gap 9 BUN 37 H Creatinine 1.9 H Creat Clearance w eGFR Random Glucose 104 Calcium 8.7 Phosphorus 4.3 Magnesium 2.0 Total Bilirubin AST ALT Alkaline Phosphatase Total Protein Albumin Active Medications Generic Name Dose Route Start Last Admin Trade Name Freq PRN Reason Stop Dose Admin Acetaminophen 650 mg 02/04/17 17:57 Tylenol - PO Q4H PRN FEVER OR PAIN Donepezil HCl 5 mg 02/05/17 10:00 02/05/17 09:38 Aricept - PO 5 mg DAILY SAVANNAH Administration Enoxaparin Sodium 30 mg 02/06/17 10:00 Lovenox - SQ DAILY SAVANNAH Famotidine 20 mg 02/05/17 22:00 02/05/17 21:08 Pepcid - PO 20 mg BID SAVANNAH Administration Sodium Chloride 1,000 mls @ 83 mls/hr 02/04/17 18:00 02/05/17 17:12 Normal Saline - IV 83 mls/hr ASDIR SAVANNAH Administration Lactated Ringer's 1,000 mls @ 75 mls/hr 02/05/17 11:45 Lactated Ringers Solution IV ASDIR SAVANNAH Metoprolol Succinate 25 mg 02/05/17 10:00 02/05/17 10:12 Toprol Xl - PO 25 mg DAILY SAVANNAH Administration Morphine Sulfate 1 mg 02/04/17 17:57 02/05/17 20:52 Morphine Sulfate IVPUSH 1 mg Q4H PRN Administration PAIN Oxycodone HCl 5 mg 02/06/17 07:42 Roxicodone - PO Q6H PRN PAIN LEVEL 6-10 IMAGING Right hip/pelvis: impacted, comminuted right intrathrocantic fracture chest xray: no acute disease head ct: no acute pathology ASSESSMENT/PLAN: 1) MS intrathrocantic hip fracture s/p right gamma nail pod #1 - Dr prince consulted and following - prn pain medication, morphine and roxicodone - scd/cyndee, incentive spirometer 2) cardiovascular hypertension -b/p at goal, continue toprol home dose - echo 07/02, grade I diastolic dysfunction, mild , ef 73% - 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, unchanged from prior ekg 12/17/16 - cardiology consulted and followed, Dr Small 3) nephrology acute on chronic renal insufficency - creatine 1.9 baseline 1.5 - avoid nephrotoxic agents, close monitoring, 4) neuro alzheimer's dementia - continue aricept and seroquel, dose verifed with PCP Dr Schofield f/e/n severe malnutrition - start mvi and ensure - low sodium diet ppx - lovenox - scd/cyndee - pepcid Dispo: Pt currently requires inpatient management of his emergent condition and expected LOS is >2MN Problem List - Problems (1) Severe malnutrition Code(s): E43 - UNSPECIFIED SEVERE PROTEIN-CALORIE MALNUTRITION Visit type - Emergency Visit Emergency Visit: Yes ED Registration Date: 02/04/17 Care time: The patient presented to the Emergency Department on the above date and was hospitalized for further evaluation of their emergent condition. - New Patient This patient is new to me today: No - Critical Care Critical Care patient: No - Discharge Referral Referred to [facility] Med P.C.: No
[2017-02-06] MEDS: oxyCODONE HCL 5 MG TABLET PO PRN ×2 (09:35→22:09)
[2017-02-06] MEDS: FAMOTIDINE 20 MG TABLET PO SCH ×2 (09:36→22:10)
[2017-02-06] MEDS: ENOXAPARIN NA (PORCINE) 30 MG/0.3 ML DISP.SYRIN SQ SCH (09:36)
[2017-02-06] MEDS: METOPROLOL SUCCINATE 25 MG TAB.SR.24H (FP) PO SCH (09:36)
[2017-02-06] MEDS: DONEPEZIL HCL 5 MG TABLET (FP) PO SCH (09:36)
[2017-02-06] MEDS ORDERED: ENOXAPARIN NA (PORCINE) 40 MG/0.4 ML DISP.SYRIN SQ SCH (10:00)
--- NOTE | 2017-02-06 10:09 | OP ---
DATE OF OPERATION: 02/05/2017 PREOPERATIVE DIAGNOSIS: Right intertrochanteric hip fracture. POSTOPERATIVE DIAGNOSIS: Right intertrochanteric hip fracture. PROCEDURE: Right Gamma nailing. SURGICAL ATTENDING: Yordan Matias MD WORK[employer] COMPENSATION ADJUSTER: PIERO William ANESTHESIA: Spinal. CLOSURE: A short Gamma nail with appropriate interlocking screws, 0 Vicryl fascia, 2-0 subcutaneous, jamshid to skin. ESTIMATED BLOOD LOSS: Negligible. COMPLICATIONS: None. CONDITION: To Recovery in stable condition. DESCRIPTION OF THE PROCEDURE: The patient was taken to the operating room on February 05, 2017. IV Kefzol was administered prophylactically prior to the case. Anesthesia was administered by the anesthesiologist. The patient was then fastened to the fracture table with all prominences well padded. Excellent reduction of the fracture was confirmed in AP and lateral plane by use of fluoroscopy. The right hip area was then prepped and draped in the usual sterile fashion by use of a shower curtain. A small 2-cm longitudinal incision over the tip of the greater trochanter was incised, hemostasis achieved using Bovie cautery. Sharp dissection was carried through the fascia. A guidewire was drilled from the tip of the greater trochanter into the intramedullary canal past the fracture. This was directed by fluoroscopy in both the AP and lateral plane. This was overreamed with a proximal reamer. A short Gamma nail was then malleted down into place. Using the outrigger and a small stab incision laterally, a guidewire was drilled from the lateral aspect of the femur, through the erna, through the neck into the femoral head. Proper placement was confirmed in the AP and lateral plane by using the image intensifier. The guidewire was measured for length, reamed with a triple reamer, and then screwed with the appropriate-sized lag screw. With the traction removed, the compression device was used to compress the fracture. A set screw was placed from above in the dynamic fashion. Again using the outrigger and through a small stab incision distally, a distal hole was drilled, depth gauged and screwed with the appropriate length locking screw in the static hole. The outrigger was removed. The x-rays in the AP and lateral plane revealed excellent position of the hardware with excellent reduction of the fracture. All incisions were irrigated out with copious amounts of irrigation. The fascia was closed in 0 Vicryl, 2-0 subcutaneous, and jamshid to the skin. Sterile pressure dressing was applied, patient awakened from anesthesia and transferred to Recovery in stable condition. No complications. Estimated blood loss negligible. Myriam PATEL/[id number]
--- NOTE | 2017-02-06 10:12 | PN ---
Progress Note (short form) - Note Progress Note: Pt sitting comfortably in bed. Denies n/v denies sob VAS 2/10 No apparent anesthesia complications. S/p right hip pinning POD#1 -cont PO pain meds
[2017-02-06 14:30] VITALS: BP 127/60; PULSE 80; TEMP 98
[2017-02-07] MEDS ORDERED: FERROUS SO4 325 MG TABLET (FP) PO SCH (08:15)
--- NOTE | 2017-02-07 09:53 | DS ---
Physical Exam: SUBJECTIVE: Patient seen and examined, patient confused appears comfortable, reports to right hip only upon movement. OBJECTIVE: This is an 89 year old male with a significant past medical history of alzheimer 's dementia who presented to the ED s/p mechanical fall with R hip pain. Xrays revealed comminuted/impacted IT fracture. Upon exam pt reports pain is "better" ; he received morphine approx 20 min prior to my exam. Pt denies falling today and reports that his hip has been no good lately. he also repeatedly asks me the same question and reports the time as "8 minutes after 12." It is actually 10:10. ER course was notable for: (1) Xray hip with IT fracture Vital Signs Period Temp Pulse Resp BP Sys/Ríos Pulse Ox Last 24 Hr 97.6 F-98.0 F 78-80 16-18 127-128/58-60 97 PHYSICAL EXAM GENERAL: The patient is awake, alert, and fully oriented, in no acute distress. HEAD: Normal with no signs of trauma. EYES: PERRL, extraocular movements intact, sclera anicteric, conjunctiva clear. ENT: Ears normal, nares patent, oropharynx clear without exudates, moist mucous membranes. NECK: Trachea midline, full range of motion, supple. LUNGS: Breath sounds equal, clear to auscultation bilaterally, no wheezes, no crackles, no accessory muscle use. HEART: Regular rate and rhythm, S1, S2 without murmur, rub or gallop. ABDOMEN: Soft, nontender, nondistended, normoactive bowel sounds, no guarding, no rebound, no hepatosplenomegaly, no masses. EXTREMITIES: 2+ pulses, warm, well-perfused, no edema. RIGHT LOWER EXTREMITY: 4x4 with tape to surgical, suture line is well approximated no erythema no induration is noted. NEUROLOGICAL: Cranial nerves II through XII grossly intact. Normal speech, gait not observed. PSYCH: Normal mood, normal affect. SKIN: Warm, dry, normal turgor, no rashes or lesions noted. LABS CBC WBC 9.1 K/mm3 (4.0-10.8) 02/06/17 07:00 RBC 2.91 M/mm3 (4.00-5.60) L 02/06/17 07:00 Hgb 9.1 GM/dl (11.7-16.9) L 02/06/17 07:00 Hct 27.7 % (35.4-49) L 02/06/17 07:00 MCV 95.1 fl (80-96) 02/06/17 07:00 MCH 31.2 pg (25.7-33.7) 02/06/17 07:00 MCHC 32.8 g/dl (32.0-35.9) 02/06/17 07:00 RDW 13.4 % (11.9-15.9) 02/06/17 07:00 Plt Count 141 K/MM3 (134-434) 02/06/17 07:00 MPV 10.1 fl (7.5-11.1) 02/06/17 07:00 Neutrophils % 83.8 % (42.8-82.8) H 02/06/17 07:00 Lymphocytes % 8.4 % (8-40) 02/06/17 07:00 Monocytes % 6.1 % (3.8-10.2) 02/06/17 07:00 Eosinophils % 1.6 % (0-4.5) 02/06/17 07:00 Basophils % 0.1 % (0-2.0) 02/06/17 07:00 CMP Sodium 137 mmol/L (136-145) 02/06/17 07:00 Potassium 5.0 mmol/L (3.5-5.1) 02/06/17 07:00 Chloride 104 mmol/L (98-107) 02/06/17 07:00 Carbon Dioxide 24 mmol/L (22-28) 02/06/17 07:00 Anion Gap 9 (8-16) 02/06/17 07:00 BUN 37 mg/dl (7-18) H 02/06/17 07:00 Creatinine 1.9 mg/dl (0.6-1.3) H 02/06/17 07:00 Creat Clearance w eGFR 35.70 (>60) 02/05/17 17:58 Random Glucose 104 mg/dl (74-106) 02/06/17 07:00 Calcium 8.7 mg/dl (8.4-10.2) 02/06/17 07:00 Phosphorus 4.3 mg/dl (2.5-4.6) 02/06/17 07:00 Magnesium 2.0 mg/dL (1.8-2.4) 02/06/17 07:00 Total Bilirubin 0.7 mg/dl (0.2-1.0) D 02/05/17 17:58 AST 26 U/L (10-42) 02/05/17 17:58 ALT 19 U/L (10-40) 02/05/17 17:58 Alkaline Phosphatase 100 U/L (32-92) H D 02/05/17 17:58 Troponin I < 0.03 ng/ml (0.03-0.50) L 02/04/17 14:30 Total Protein 6.1 g/dl (6.4-8.3) L D 02/05/17 17:58 Albumin 3.3 g/dl (3.5-5.0) L 02/05/17 17:58 IMAGING Right hip/pelvis: impacted, comminuted right intrathrocantic fracture chest xray: no acute disease head ct: no acute pathology HOSPITAL COURSE: 1) intrathrocantic hip fracture s/p right gamma nail pod # 2, Dr Matias, pain was managed with prn pain medication, morphine and roxicodone 2) patient has a past medical history of hypertension, b/p at goal, continued toprol home dose, echo 07/02, grade I diastolic dysfunction, mild , ef 73%, 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, unchanged from prior ekg 12/17/16, cardiology consulted and followed, Dr Small 3) acute on chronic renal insufficency, secondary to hypovolemia, creatine 1.9 baseline 1.5, avoid nephrotoxic agents, close monitoring, 4) pmh of alzheimer's dementia, continued aricept and seroquel, dose verifed with PCP Dr Schofield 5) severe malnutrition , started mvi and ensure, low sodium diet PLAN - lengthy conversation with son and patient's , both decline placement at SNF, patient does have 8 hours of private nursing at home and son will care for patient during his recovery. Patient discharged to the care of the son. - continue all medications as prescribed - follow up with Dr Matias within 10 days Date of Admission:02/04/17 Date of Discharge: 02/07/17 Minutes to complete discharge: 45 Discharge Summary Reason For Visit: RIGHT HIP FRACTURE Current Active Problems Hip fracture (Acute) Severe malnutrition (Acute) Condition: Improved - Instructions Diet, Activity, Other Instructions: Post-op Instructions: Call the office for a follow-up appointment in 10 days - [phone] Apply Graduated Compression Stockings (TEDs) to both lower extremities- remove daily for hygiene ONLY Apply cold packs to affected area for 15 minutes every 2 hours. visiting nurse will come to your home tomorrow. Patient may ambulate as tolerated-encourage self care (at least every 2-3 hours while awake) with walker or cane sponge baths only,until you are cleared for shower by the orthopedist. CONTACT THE OFFICE FOR ANY CHANGE IN YOUR CONDITION (for example-fever greater than 102 degrees,excessive bleeding from operative site, purulent drainage, severe swelling or pain) GO TO THE EMERGENCY ROOM IF THERE IS A MEDICAL EMERGENCY Hip Precautions: * Keep a rolled towel under affected heel while in bed or chair (to keep knee in extension) * If you have any questions, please do not hesitate to call the office - [phone] Referrals: Yordan Matias MD [Staff Physician] - (10 days ) Devon Schofield MD [Primary Care Provider] - Disposition: VNS/HOME HEALTH CARE - Home Medications Comprehensive Discharge Medication List: Ambulatory Orders Donepezil HCl [Aricept -] 5 mg PO DAILY 10/09/16 Quetiapine Fumarate [Seroquel -] 50 mg PO HS 10/09/16 Metoprolol Succinate [Toprol Xl -] 25 mg PO DAILY 02/05/17 Problem List - Problems (1) Severe malnutrition Code(s): E43 - UNSPECIFIED SEVERE PROTEIN-CALORIE MALNUTRITION This patient is new to me today: No Emergency Visit: Yes ED Registration Date: 02/04/17 Care time: The patient presented to the Emergency Department on the above date and was hospitalized for further evaluation of their emergent condition. Critical Care patient: No - Discharge Referral Referred to [facility] No
[2017-02-07] MEDS: DONEPEZIL HCL 5 MG TABLET (FP) PO SCH (10:45)
[2017-02-07] MEDS: FAMOTIDINE 20 MG TABLET PO SCH (10:45)
[2017-02-07] MEDS: METOPROLOL SUCCINATE 25 MG TAB.SR.24H (FP) PO SCH (10:45)
[2017-02-07] MEDS: ENOXAPARIN NA (PORCINE) 30 MG/0.3 ML DISP.SYRIN SQ SCH (10:45)
== END 2017-02-07 12:43 | disposition home health service (06) | DRG 480 ==
LOC: SUPCPDRO 13:56 → FER 13:56 → FM/S 18:08
PROVIDERS: ADMIT Internal Medicine; ATTEND Nurse Practitioner Family
PROC: 0QS604Z Reposition Right Upper Femur with Internal Fixation Device, Open Approach (ICD-10-PCS; principal; 2017-02-05 11:45)
DX: S72.141A Displaced intertrochanteric fracture of right femur, initial encounter for closed fracture (principal); E43 Unspecified severe protein-calorie malnutrition; N17.9 Acute kidney failure, unspecified; Z68.1 Body mass index [BMI] 19.9 or less, adult; I12.9 Hypertensive chronic kidney disease with stage 1 through stage 4 chronic kidney disease, or unspecified chronic kidney disease; I44.0 Atrioventricular block, first degree; I45.10 Unspecified right bundle-branch block; E86.1 Hypovolemia; N18.9 Chronic kidney disease, unspecified; G30.9 Alzheimer's disease, unspecified; F02.80 Dementia in other diseases classified elsewhere, unspecified severity, without behavioral disturbance, psychotic disturbance, mood disturbance, and anxiety; W01.0XXA Fall on same level from slipping, tripping and stumbling without subsequent striking against object, initial encounter; Y93.89 Activity, other specified; Y92.098 Other place in other non-institutional residence as the place of occurrence of the external cause; Y99.8 Other external cause status
CPT/HCPCS: 36415; 70450-TC; 71010-TC; 73501-TC-RT; 73523-TC; 76000-TC; 80048; 80053; 81003; 81015; 83735; 84100; 84484; 85025; 85610; 85730; 86850; 86900; 86901; 87086; 93005; 94010; 94760; 97116-GP; 97162-GP; 99285-25

== ENCOUNTER 2017-03-01 10:30 | Inpatient (IN) | payer OTHER ==
--- NOTE | 2017-03-01 10:58 | PDOC ---
History of Present Illness <Rob Burdick - Last Filed: 03/01/17 16:34> - History of Present Illness Initial Comments: 03/01/17 11:07 Weakness wheezing cough History of present illness: 89 years old past medical history significant for dementia, hypertension, chronic diarrhea presents emergency Department several a history of cough wheezing and weakness. 8 and noted wheezing this morning ambulance was called. Patient complaining of weakness and coughing in the emergency Department denies other complaints. History limited somewhat by dementia. 03/01/17 12:57 <Darci Gallagher - Last Filed: 03/01/17 18:06> - General Chief Complaint: Shortness of Breath Stated Complaint: SHORT OF BREATH Time Seen by Provider: 03/01/17 10:58 Past History <Rob Burdick - Last Filed: 03/01/17 16:34> - Past Medical History Anemia: No Asthma: No Cancer: No Cardiac Disorders: No CVA: No COPD: No CHF: No DVT: No Dementia: Yes Diabetes: No GI Disorders: Yes (DIARRHEA) Disorders: No HTN: Yes Hypercholesterolemia: No Liver Disease: No Psychiatric Problems: No Seizures: No Thyroid Disease: No Lung CA: No - Surgical History Abdominal Surgery: No Appendectomy: No Cardiac Surgery: No Cholecystectomy: No Lung Surgery: No Orthopedic Surgery: Yes (LEFT HIP PINNING) - Suicide/Smoking/Psychosocial Hx Smoking History: Never smoked Have you smoked in the past 12 months: No Hx Alcohol Use: No Drug/Substance Use Hx: No Substance Use Type: None <Darci Gallagher - Last Filed: 03/01/17 18:06> - Past Medical History Allergies/Adverse Reactions: Allergies Allergy/AdvReac Type Severity Reaction Status Date / Time No Known Allergies Allergy Verified 03/01/17 11:49 Home Medications: Ambulatory Orders Quetiapine Fumarate [Seroquel -] 75 mg PO HS 10/09/16 Acetaminophen [Tylenol .Regular Strength -] 650 mg PO Q4H PRN tablet 02/07/17 Donepezil HCl [Aricept] 10 mg PO DAILY 03/01/17 Review of Systems - Review of Systems Comments:: 03/01/17 11:08 ROS: A complete review of 10 out of 10 review of systems is taken and is negative apart from what is previously mentioned below and in the HPI. <Darci Gallagher - Last Filed: 03/01/17 18:06> *Physical Exam - Vital Signs Last Vital Signs Temp Pulse Resp BP Pulse Ox 99.0 F 90 19 120/69 97 03/01/17 10:45 03/01/17 15:29 03/01/17 15:29 03/01/17 15:29 03/01/17 15:29 <Rob Burdick - Last Filed: 03/01/17 16:34> - Physical Exam Comments: 03/01/17 12:57 Vitals: Triage Vital signs reviewed General Appearance: no acute distress, well nourished well developed, Head: Atraumatic, Neck: Supple;No Nucal rigidity Chest Wall: Nontender Cardiac: Tachycardic Lungs: Bilateral expiratory wheezing, crackles noted on the right side Abdomen: Soft, non distended, normal bowel sounds, non tender to palpation Extremities: Full range of motion to all extremities, no cyanosis, clubbing, or edema Skin: Warm and dry, no rashes or lesions, no rash, no petechiae Neuro: Cranial Nerves 2-12 grossly intact, Strength intact to all extremities, Sensation intact to all extremities Psych: normal mood, normal affect <Darci Gallagher - Last Filed: 03/01/17 18:06> Heart Score/ECG Review - ECG Intrepretation Comment:: 03/01/17 16:34 Repeat ECG EKG performed at 16:20:48 demonstrates rate of 67 bpm, Normal Sinus rhythm, axis equal to Right bundle branch block. Additional findings include: Abnormal ECG. no T wave inversions, no ST elevations <Rob Burdick - Last Filed: 03/01/17 16:34> - ECG Impressions Comment:: 03/01/17 15:18 A. fib with RVR T-wave inversions inferiorly no ST elevations <Darci Gallagher - Last Filed: 03/01/17 18:06> ED Treatment Course - LABORATORY CBC & Chemistry Diagram: 03/01/17 12:38 03/01/17 12:00 - ADDITIONAL ORDERS Additional order review: Laboratory Results 03/01/17 03/01/17 03/01/17 16:10 12:38 12:38 VBG pH 7.37 POC VBG pCO2 41.7 POC VBG pO2 22.2 L Mixed VBG HCO3 23.5 Sodium Potassium Chloride Carbon Dioxide Anion Gap BUN Creatinine Creat Clearance w eGFR Random Glucose Lactic Acid 2.4 H* Calcium Total Bilirubin AST ALT Alkaline Phosphatase Troponin I B-Natriuretic Peptide Total Protein Albumin Urine Color Yellow Urine Appearance Clear Urine pH 5.0 Ur Specific [place] 1.015 Urine Protein 1+ H Urine Glucose (UA) Negative Urine Ketones Negative Urine Blood Trace-intact H Urine Nitrite Negative Urine Bilirubin Negative Urine Urobilinogen 1.0 Ur Leukocyte Esterase Negative 03/01/17 03/01/17 03/01/17 12:00 12:00 12:00 VBG pH POC VBG pCO2 POC VBG pO2 Mixed VBG HCO3 Sodium 140 Potassium 4.5 Chloride 107 Carbon Dioxide 22 Anion Gap 11 BUN 63 H D Creatinine 1.9 H Creat Clearance w eGFR 33.54 Random Glucose 110 H Lactic Acid Calcium 8.9 Total Bilirubin 0.9 D AST 41 D ALT 24 D Alkaline Phosphatase 189 H D Troponin I 0.03 B-Natriuretic Peptide 3380.70 H Total Protein 7.3 Albumin 2.5 L D Urine Color Urine Appearance Urine pH Ur Specific [place] Urine Protein Urine Glucose (UA) Urine Ketones Urine Blood Urine Nitrite Urine Bilirubin Urine Urobilinogen Ur Leukocyte Esterase 03/01/17 12:38 RBC 3.00 L MCV 94.9 MCHC 33.7 RDW 13.7 MPV 10.1 Neutrophils % No Result Required. Lymphocytes % No Result Required. - Medications Given in the ED: ED Medications Discontinued Medications Generic Name Dose Route Start Last Admin Trade Name Freq PRN Reason Stop Dose Admin Albuterol/Ipratropium 3 amp 03/01/17 11:15 03/01/17 12:45 Duoneb - NEB 03/01/17 11:16 3 amp ONCE ONE Administration Aspirin 325 mg 03/01/17 15:46 03/01/17 16:05 Asa - PO 03/01/17 15:47 325 mg ONCE ONE Administration Metoprolol Tartrate 5 mg 03/01/17 15:11 03/01/17 15:15 Lopressor Injection - IVPUSH 03/01/17 15:12 5 mg ONCE ONE Administration Metoprolol Tartrate 50 mg 03/01/17 15:19 03/01/17 15:25 Lopressor - PO 03/01/17 15:20 50 mg ONCE ONE Administration Piperacillin Sod/Tazobactam Sod 3.375 gm 03/01/17 13:30 03/01/17 13:53 Zosyn 3.375gm Ivpb (Pre-Docked) IVPB 03/01/17 13:31 3.375 gm NOW ONE Administration Protocol <Rob Burdick - Last Filed: 03/01/17 16:34> - LABORATORY CBC & Chemistry Diagram: 03/01/17 12:38 03/01/17 12:00 <Darci Gallagher - Last Filed: 03/01/17 18:06> Medical Decision Making - Critical Care Time Total Critical Care Time (minutes): 45 Critical Care Statement: The care of this patient involved high complexity decision making to prevent further life threatening deterioration of the patient 's condition and/or to evaluate & treat vital organ system(s) failure or risk of failure. - Medical Decision Making 03/01/17 12:59 89 years old with respiratory examination with wheeze and crackles. We'll check labs blood cultures lactic acid, chest x-ray, treat with DuoNeb's and reassess 03/01/17 16:06 Patient with cough wheezing pneumonia on x-ray new-onset A. fib. Will treat underlying pna with fluids and reasses. IV fluids given broad-spectrum antibiotics ordered given that patient was in the emergency department within the last 90 days Reevaluation: Pt. remains in afib with rvr, but sbp stable 5 mg IV Lopressor given followed by 50 mg by mouth Lopressor patient now rate controlled Reevaluation 406 patient now in sinus rhythm repeat EKG ordered Call to cardiology placed. Cardiology consultation ordered Will admit to medicine for further evaluation. ASA ordered Reevaluation: Pt. now in sinus rhythm <Darci Gallagher - Last Filed: 03/01/17 18:06> *DC/Admit/Observation/Transfer <Rob Burdick - Last Filed: 03/01/17 16:34> - Discharge Dispostion Admit: Yes <Darci Gallagher - Last Filed: 03/01/17 18:06> Diagnosis at time of Disposition: Pneumonia Qualifiers: Pneumonia type: due to unspecified organism Laterality: right Lung location: lower lobe of lung Qualified Code(s): J18.1 - Lobar pneumonia, unspecified organism A-fib Qualifiers: Atrial fibrillation type: paroxysmal Qualified Code(s): I48.0 - Paroxysmal atrial fibrillation - Discharge Dispostion Condition at time of disposition: Good - Referrals Referrals: Devon Schofield MD [Primary Care Provider] - - Patient Instructions - Post Discharge Activity
[2017-03-01] MEDS ORDERED: ALBUTEROL SO4 2.5/IPRATROPIUM 0.5 INH SOL 3 ML VIAL.NEB. NEB ONE ×3 (11:15→13:03)
[2017-03-01 12:02] VITALS: BMI 15.0
[2017-03-01 13:15] LABS: ALBUMIN 2.5 g/dl (3.5-5.0); ALK PHOS 189 U/L (32-92); ANION GAP 11 (8-16); BILIRUBIN,TOTAL 0.9 mg/dl (0.2-1.0); CALCIUM 8.9 mg/dl (8.4-10.2); CO2 22 mmol/L (22-28); CREATININE 1.9 mg/dl (0.6-1.3); GLUCOSE,RANDOM 110 mg/dl (74-106); SGOT/AST 41 U/L (10-42); SGPT/ALT 24 U/L (10-40); TOT PROT 7.3 g/dl (6.4-8.3)
[2017-03-01 13:15] LABS: MCHC 33.7 g/dl (32.0-35.9)
[2017-03-01] MEDS ORDERED: SODIUM CHLORIDE 0.9% 1000 ML INFUS.BAG IV PRN (13:28)
[2017-03-01] MEDS ORDERED: PIPERACILLIN/TAZOB 3.375 GM/50 ML PRE-DOCKED IVPB ONE (13:30)
[2017-03-01] MEDS ORDERED: PIPERACILLIN/TAZOBACTAM 3.375 GM VIAL IVPB ONE (13:39)
[2017-03-01 13:43] LABS: MEAN CELL VOLUME 94.9 fl (80-96); MEAN PLT VOLUME 10.1 fl (7.5-11.1); PLATELET COUNT 471 K/MM3 (134-434); RDW 13.7 % (11.9-15.9); WHITE BLOOD COUNT 15.5 K/mm3 (4.0-10.8)
[2017-03-01 13:48] LABS: VENOUS PH 7.37 (7.32-7.42)
[2017-03-01 13:49] LABS: VENOUS BLOOD GAS HCO3 23.5 meq/L (19-25)
[2017-03-01] MEDS ORDERED: METOPROLOL TARTRATE 5 MG/5 ML VIAL IVPUSH ONE (15:11)
[2017-03-01] MEDS ORDERED: METOPROLOL TARTRATE 5 MG/5 ML VIAL ONE (15:14)
[2017-03-01] MEDS ORDERED: METOPROLOL TARTRATE 50 MG TABLET (FP) PO ONE (15:19)
[2017-03-01] MEDS ORDERED: METOPROLOL TARTRATE 50 MG TABLET (FP) ONE (15:21)
[2017-03-01] MEDS ORDERED: ASPIRIN 325 MG TABLET PO ONE (15:46)
[2017-03-01] MEDS ORDERED: ASPIRIN 325 MG TABLET ONE (16:01)
[2017-03-01 16:24] LABS: URINE APPEARANCE Clear; URINE BILIRUBIN Negative (NEGATIVE); URINE GLUCOSE (UA) Negative (NEGATIVE); URINE KETONE Negative (NEGATIVE); URINE LEUK ESTERASE Negative (NEGATIVE); URINE NITRITE Negative (NEGATIVE)
[2017-03-01 16:33] LABS: URINE BLOOD Trace-intact (NEGATIVE); URINE PROTEIN 1+ (NEGATIVE)
[2017-03-01 16:34] LABS: URINE COLOR YELLOW
--- NOTE | 2017-03-01 16:52 | CON.CARD ---
Consult Consult Specialty:: Cardiology Referred by:: Hospitalist Medicine Reason for Consultation:: Rapid afib - History of Present Illness Chief Complaint: Dyspnea, palpitations History of Present Illness: 89 year old male, BIBA with a significant past medical history of HTN, dementia and mild per 2016 office echo, falls with comminuted/impacted IT fracture post right IM gamma nail, left rahel fractures, closed head trauma, presented for cough wheezing and weakness, found to be in rapid afib since rate-controlled with Lopressor and back in sinus rhythm, poor historian. Allergies: NKA Past surgical history: Left hip pinning Social History: Nonsmoker. Denies EtOH use and recreational drug use. Primary Care Physician: - History Source History Provided By: Patient Limitations to Obtaining History: No Limitations - Past Medical History Cardio/Vascular: Yes: CHF, HTN - Alcohol/Substance Use Hx Alcohol Use: No - Smoking History Smoking history: Never smoked Have you smoked in the past 12 months: No Home Medications - Allergies Allergies/Adverse Reactions: Allergies Allergy/AdvReac Type Severity Reaction Status Date / Time No Known Allergies Allergy Verified 03/01/17 11:49 - Home Medications Home Medications: Ambulatory Orders Quetiapine Fumarate [Seroquel -] 75 mg PO HS 10/09/16 Acetaminophen [Tylenol .Regular Strength -] 650 mg PO Q4H PRN tablet 02/07/17 Donepezil HCl [Aricept] 10 mg PO DAILY 03/01/17 Review of Systems Unable to obtain ROS, reason: Dementia Vital Signs: Vital Signs Temperature 99.0 F 03/01/17 10:45 Pulse Rate 90 03/01/17 15:29 Respiratory Rate 19 03/01/17 15:29 Blood Pressure 120/69 03/01/17 15:29 O2 Sat by Pulse Oximetry (%) 97 03/01/17 15:29 Constitutional: Yes: No Distress, Calm, Thin Neck: Yes: Supple Respiratory: Yes: Regular, Diminished Gastrointestinal: Yes: Normal Bowel Sounds, Soft Cardiovascular: Yes: Regular Rate and Rhythm JVD: No Carotid Bruit: No Heart Sounds: Yes: S1, S2 Murmur: Yes: Systolic Murmur, Grade 1 Edema: No - Other Data Labs, Other Data: CBC, BMP 03/01/17 12:38 03/01/17 12:00 Troponin, BNP 03/01/17 03/01/1703/01/17 12:00 12:00 15:49 Troponin I 0.03 0.03 B-Natriuretic Peptide 3380.70 H Troponin, BNP 03/01/17 03/01/17 03/01/17 12:00 12:00 15:49 Troponin I 0.03 0.03 B-Natriuretic Peptide 3380.70 H PAF->SR Imaging - Results Chest X-ray: Report Reviewed (CHF) Problem List - Problems (1) Acute on chronic diastolic heart failure Code(s): I50.33 - ACUTE ON CHRONIC DIASTOLIC (CONGESTIVE) HEART FAILURE (2) Dementia Code(s): F03.90 - UNSPECIFIED DEMENTIA WITHOUT BEHAVIORAL DISTURBANCE Qualifiers: Dementia type: unspecified type (3) A-fib Code(s): I48.91 - UNSPECIFIED ATRIAL FIBRILLATION Qualifiers: Atrial fibrillation type: paroxysmal Qualified Code(s): I48.0 - Paroxysmal atrial fibrillation (4) Aortic stenosis, mild Code(s): I35.0 - NONRHEUMATIC AORTIC (VALVE) STENOSIS (5) Chronic kidney disease (CKD) Code(s): N18.9 - CHRONIC KIDNEY DISEASE, UNSPECIFIED Qualifiers: Chronic kidney disease stage: stage 3 (moderate) Qualified Code(s): N18.3 - Chronic kidney disease, stage 3 (moderate) (6) Right bundle branch block Code(s): I45.10 - UNSPECIFIED RIGHT BUNDLE-BRANCH BLOCK Assessment/Plan 07/05/2016 Echo: Normal LV size and fxn, tr-mild TR, mild , AR, abnl LV compliance 1. Acute on chronic diastolic failure precipitated by 2. Paroxysmal afib with RVR->SR 3. RBBB 4. Mild aortic valve stenosis 5. CKD 6. H/o HTN 7. H/o fall with right hip fracture and subsequent repair 8. Dementia P:1. D/c IVF, judicious diuresis, monitor telemetry for recurrent arrhythmia 2. Resume Toprol XL 25 qd, ASA 81 qd, may not be ideal a/c candidate due to fall and dementia history 3. DVT and GI prophylaxis 4. Thank you for consultative opportunity
[2017-03-01 17:53] LABS: URINE BACTERIA FEW /hpf (NEGATIVE); URINE RBC 0-2 /hpf (0-3)
[2017-03-01 17:53] LABS: PLATELET ESTIMATE SLT INCREASE
--- NOTE | 2017-03-01 18:31 | HP ---
Admitting History and Physical - Admission Chief Complaint: shortness of breath History of Present Illness: This is an 89 year old male with pmhx of HTN, dementia, s/p fall with comminuted /impacted IT fracture post right IM gamma nail, left rahel fractures, closed head trauma, chronic diarrhea, presented for cough wheezing and weakness. Information gathered via chart, pt is has severe dementia. He was found to be in new onset rapid afib and a pna. In ED IV lopressor given and po metoprolol pt converted spontaneously to SR. Given zosyn x1 Currently, pt has no complaints, he is not wearing his oxygen and appears comfortable flat in bed. History Source: Medical Record Limitations to Obtaining History: No Limitations - Past Medical History [employer]: Yes: Dementia Cardiovascular: Yes: CHF, HTN - Smoking History Smoking history: Never smoked Have you smoked in the past 12 months: No - Alcohol/Substance Use Hx Alcohol Use: No Home Medications - Allergies Allergies/Adverse Reactions: Allergies Allergy/AdvReac Type Severity Reaction Status Date / Time No Known Allergies Allergy Verified 03/01/17 11:49 - Home Medications Home Medications: Ambulatory Orders Quetiapine Fumarate [Seroquel -] 75 mg PO HS 10/09/16 Acetaminophen [Tylenol .Regular Strength -] 650 mg PO Q4H PRN tablet 02/07/17 Donepezil HCl [Aricept] 10 mg PO DAILY 03/01/17 Review of Systems - Review of Systems Constitutional: reports: No Symptoms Eyes: reports: No Symptoms HENT: reports: No Symptoms Neck: reports: No Symptoms Cardiovascular: reports: Shortness of Breath Respiratory: reports: Cough, SOB, Wheezing Gastrointestinal: reports: No Symptoms Genitourinary: reports: No Symptoms Musculoskeletal: reports: No Symptoms Integumentary: reports: No Symptoms Neurological: reports: Pre-Existing Deficit Endocrine: reports: No Symptoms Hematology/Lymphatic: reports: No Symptoms Psychiatric: reports: No Symptoms Physical Examination Vital Signs: Vital Signs Temperature 99.1 F 03/01/17 17:59 Pulse Rate 72 03/01/17 18:25 Respiratory Rate 20 03/01/17 18:25 Blood Pressure 93/79 03/01/17 18:25 O2 Sat by Pulse Oximetry (%) 92 L 03/01/17 18:25 Constitutional: Yes: No Distress Eyes: Yes: Conjunctiva Clear HENT: Yes: Atraumatic Neck: Yes: Supple, Trachea Midline Cardiovascular: Yes: Regular Rate and Rhythm, S1, S2 Respiratory: Yes: Cough, On Nasal O2 (l base rhonchi >R, diminished), Rhonchi Gastrointestinal: Yes: WNL Extremities: Yes: WNL Edema: No Integumentary: Yes: WNL Neurological: Yes: Alert, Cran Nerves II-XII Intact, Pre-Existing Deficit ...Motor Strength: WNL Psychiatric: Yes: Alert Labs: CBC, BMP 03/01/17 12:38 03/01/17 12:00 Imaging - Results Chest X-ray: Report Reviewed, Image Reviewed (b/l infiltrates) Problem List - Problems (1) New onset atrial fibrillation Code(s): I48.91 - UNSPECIFIED ATRIAL FIBRILLATION (2) Dementia Code(s): F03.90 - UNSPECIFIED DEMENTIA WITHOUT BEHAVIORAL DISTURBANCE Qualifiers: Dementia type: unspecified type (3) Pneumonia Code(s): J18.9 - PNEUMONIA, UNSPECIFIED ORGANISM Qualifiers: Pneumonia type: due to unspecified organism Laterality: right Lung location: lower lobe of lung Qualified Code(s): J18.1 - Lobar pneumonia, unspecified organism (4) Avsub-lq-iicrase kidney injury Code(s): N17.9 - ACUTE KIDNEY FAILURE, UNSPECIFIED; N18.9 - CHRONIC KIDNEY DISEASE, UNSPECIFIED (5) Altered mental status Code(s): R41.82 - ALTERED MENTAL STATUS, UNSPECIFIED Qualifiers: Altered mental status type: disorientation Qualified Code(s): R41.0 - Disorientation, unspecified (6) Aortic stenosis, mild Code(s): I35.0 - NONRHEUMATIC AORTIC (VALVE) STENOSIS (7) Sepsis Code(s): A41.9 - SEPSIS, UNSPECIFIED ORGANISM Assessment/Plan Assessment: 89 year old male with dementia, htn, s/p fall with comminuted/ impacted IT fracture post right IM gamma nail, presented for cough wheezing and weakness. Plan: 1. Sepsis 2/2 Bilateral pna - s/p zosyn in ED - Follow blood and urine cx - Repeat Lactic acid pending - Stop fluids 2. Bilateral community acquired PNA - Continue ceftriaxone/ azithro tomorrow - Albuterol nebs 3. New on set A fib - Converted to sinus - Monitor on tele - Continue with toprol xl 25mg daily - ASA daily - ECHO from 06/2016 Normal LV size and fxn, tr-mild TR, mild , AR, abnl LV compliance - Cardiology consult reviewed 4. Acute on chronic diastolic failure - Likely due to above - Stop fluids, encourage po intake 5. CRIS on CKD - Appears at baseline - Monitor following fluids 6. Dementia - Continue seroquel/aricept 7. H/o fall with right hip fracture and subsequent repair 8. ppx - DVT: heparin bid - Daily pt Visit type - Emergency Visit Emergency Visit: Yes Care time: The patient presented to the Emergency Department on the above date and was hospitalized for further evaluation of their emergent condition. - New Patient This patient is new to me today: Yes Date on this admission: 03/01/17 - Critical Care Critical Care patient: No
[2017-03-01] MEDS ORDERED: ACETAMINOPHEN 325 MG TABLET (FP) PO PRN (18:52)
[2017-03-01] MEDS ORDERED: SODIUM CHLORIDE 0.45% 1,000 ML IV SCH (19:30)
[2017-03-01] MEDS ORDERED: AZITHROMYCIN 500 MG VIAL IVPB ONE (19:52)
[2017-03-01] MEDS: AZITHROMYCIN IVPB SCH (20:00)
[2017-03-01] MEDS: DEXTROSE 5% IVPB SCH (20:00)
[2017-03-01] MEDS: WATER IVPB SCH (20:00)
[2017-03-01] MEDS: AZITHROMYCIN IVPB 500 MG in DEXTROSE 5%-WATER - 250 ML IVPB ONE (20:00)
[2017-03-01] MEDS ORDERED: SODIUM CHLORIDE 250 ML IV STA (20:11)
[2017-03-01] MEDS ORDERED: cefTRIAXone SODIUM 1 GM VIAL ONE (21:16)
[2017-03-01] MEDS: CEFTRIAXONE 1 G/50 ML PREMIX 50 ML IVPB SCH (21:51)
[2017-03-01] MEDS ORDERED: HEPARIN NA (PORCINE) 5,000 UNITS/ML 1ML VIAL ONE (21:52)
[2017-03-01] MEDS ORDERED: QUEtiapine FUMARATE 25 MG TABLET (FP) ONE (21:53)
[2017-03-01] MEDS: HEPARIN NA (PORCINE) 5,000 UNITS/ML 1ML VIAL SQ SCH (21:58)
[2017-03-02] MEDS: ALBUTEROL SO4 0.083% IH SOL 2.5 MG/3 ML VIAL.NEB. NEB SCH ×4 (00:12→17:04)
[2017-03-02] MEDS: QUEtiapine FUMARATE 25 MG TABLET (FP) PO SCH ×2 (00:13→21:24)
[2017-03-02 07:39] LABS: EOS % 0.9 % (0-4.5); MCH 30.5 pg (25.7-33.7); MEAN CELL VOLUME 95.4 fl (80-96); MEAN PLT VOLUME 9.4 fl (7.5-11.1); NEUT % 86.5 % (42.8-82.8); PLATELET COUNT 365 K/MM3 (134-434); RDW 13.6 % (11.9-15.9)
[2017-03-02 07:51] LABS: ALBUMIN 2.1 g/dl (3.5-5.0); ALK PHOS 147 U/L (32-92); ANION GAP 9 (8-16); BILIRUBIN,TOTAL 0.7 mg/dl (0.2-1.0); CALCIUM 8.3 mg/dl (8.4-10.2); CO2 23 mmol/L (22-28); GLUCOSE,RANDOM 98 mg/dl (74-106); PHOSPHOROUS 4.3 mg/dl (2.5-4.6); SGOT/AST 30 U/L (10-42); SGPT/ALT 19 U/L (10-40); TOT PROT 5.8 g/dl (6.4-8.3)
[2017-03-02] MEDS ORDERED: AZITHROMYCIN IVPB 500 MG in DEXTROSE 5%-WATER - 250 ML IVPB ONE (10:00)
[2017-03-02] MEDS ORDERED: CEFTRIAXONE 1 GM in DEXTROSE 5%-WATER - 50 ML IVPB SCH (10:00)
[2017-03-02] MEDS ORDERED: CEFTRIAXONE 1 G/50 ML PREMIX 50 ML IVPB SCH (10:00)
[2017-03-02] MEDS: ASPIRIN 81 MG CHEWABLE TABLETS PO SCH (10:43)
[2017-03-02] MEDS: DONEPEZIL HCL 10 MG TABLET (FP) PO SCH (10:43)
[2017-03-02] MEDS: METOPROLOL SUCCINATE 25 MG TAB.SR.24H (FP) PO SCH (10:43)
[2017-03-02] MEDS: HEPARIN NA (PORCINE) 5,000 UNITS/ML 1ML VIAL SQ SCH ×2 (10:43→21:23)
--- NOTE | 2017-03-02 11:59 | PN ---
Physical Exam: SUBJECTIVE: Patient seen and examined Patient denies SOB no CP No acute events on telemetry OBJECTIVE: Vital Signs Period Temp Pulse Resp BP Sys/Ríos Pulse Ox Last 24 Hr 99.0 F-99.5 F 54-124 16-26 83-129/40-79 92-99 Constitutional: Yes: No Distress, mildly agitated , appears malnourished Eyes: Yes: Conjunctiva Clear HENT: Yes: Atraumatic dry mucosa Neck: Yes: Supple, Trachea Midline Cardiovascular: Yes: Regular Rate and Rhythm, S1, S2 Respiratory: Yes: Cough, On Nasal O2 (l base rhonchi >R, diminished), Rhonchi Gastrointestinal: Yes: WNL Extremities: Yes: WNL Edema: No Integumentary: Yes: WNL Neurological: Yes: Alert, Cran Nerves II-XII Intact, Pre-Existing Deficit ...Motor Strength: WNL Psychiatric: Yes: Alert Laboratory Results - last 24 hr 03/01/17 03/01/17 03/01/17 12:00 12:00 12:00 WBC RBC Hgb Hct MCV MCH MCHC RDW Plt Count MPV Neutrophils % Neutrophils % (Manual) Band Neutrophils % Lymphocytes % Lymphocytes % (Manual) Monocytes % Monocytes % (Manual) Eosinophils % Basophils % Platelet Estimate VBG pH POC VBG pCO2 POC VBG pO2 Mixed VBG HCO3 Sodium 140 Potassium 4.5 Chloride 107 Carbon Dioxide 22 Anion Gap 11 BUN 63 H D Creatinine 1.9 H Creat Clearance w eGFR 33.54 Random Glucose 110 H Lactic Acid Calcium 8.9 Phosphorus Magnesium Total Bilirubin 0.9 D AST 41 D ALT 24 D Alkaline Phosphatase 189 H D Troponin I 0.03 B-Natriuretic Peptide 3380.70 H Total Protein 7.3 Albumin 2.5 L D Urine Color Urine Appearance Urine pH Ur Specific [place] Urine Protein Urine Glucose (UA) Urine Ketones Urine Blood Urine Nitrite Urine Bilirubin Urine Urobilinogen Ur Leukocyte Esterase Urine RBC Urine WBC Urine Bacteria 03/01/17 03/01/17 03/01/17 12:38 12:38 12:38 WBC 15.5 H D RBC 3.00 L Hgb 9.6 L Hct 28.4 L MCV 94.9 MCH 32.0 MCHC 33.7 RDW 13.7 Plt Count 471 H D MPV 10.1 Neutrophils % No Result Required. Neutrophils % (Manual) 92.0 H* Band Neutrophils % 4.0 Lymphocytes % No Result Required. Lymphocytes % (Manual) 2.0 L Monocytes % Monocytes % (Manual) 2 L Eosinophils % Basophils % Platelet Estimate Slt increase VBG pH 7.37 POC VBG pCO2 41.7 POC VBG pO2 22.2 L Mixed VBG HCO3 23.5 Sodium Potassium Chloride Carbon Dioxide Anion Gap BUN Creatinine Creat Clearance w eGFR Random Glucose Lactic Acid 2.4 H* Calcium Phosphorus Magnesium Total Bilirubin AST ALT Alkaline Phosphatase Troponin I B-Natriuretic Peptide Total Protein Albumin Urine Color Urine Appearance Urine pH Ur Specific [place] Urine Protein Urine Glucose (UA) Urine Ketones Urine Blood Urine Nitrite Urine Bilirubin Urine Urobilinogen Ur Leukocyte Esterase Urine RBC Urine WBC Urine Bacteria 03/01/17 03/01/17 03/01/17 15:49 15:49 16:10 WBC RBC Hgb Hct MCV MCH MCHC RDW Plt Count MPV Neutrophils % Neutrophils % (Manual) Band Neutrophils % Lymphocytes % Lymphocytes % (Manual) Monocytes % Monocytes % (Manual) Eosinophils % Basophils % Platelet Estimate VBG pH POC VBG pCO2 POC VBG pO2 Mixed VBG HCO3 Sodium Potassium Chloride Carbon Dioxide Anion Gap BUN Creatinine Creat Clearance w eGFR Random Glucose Lactic Acid 3.4 H* Calcium Phosphorus Magnesium Total Bilirubin AST ALT Alkaline Phosphatase Troponin I 0.03 B-Natriuretic Peptide Total Protein Albumin Urine Color Yellow Urine Appearance Clear Urine pH 5.0 Ur Specific [place] 1.015 Urine Protein 1+ H Urine Glucose (UA) Negative Urine Ketones Negative Urine Blood Trace-intact H Urine Nitrite Negative Urine Bilirubin Negative Urine Urobilinogen 1.0 Ur Leukocyte Esterase Negative Urine RBC 0-2 Urine WBC 2-4 Urine Bacteria Few 03/01/17 03/02/17 03/02/17 20:25 07:10 07:10 WBC 13.0 H RBC 2.57 L Hgb 7.8 L D Hct 24.5 L MCV 95.4 MCH 30.5 MCHC 32.0 RDW 13.6 Plt Count 365 D MPV 9.4 Neutrophils % 86.5 H Neutrophils % (Manual) Band Neutrophils % Lymphocytes % 8.3 Lymphocytes % (Manual) Monocytes % 4.3 Monocytes % (Manual) Eosinophils % 0.9 Basophils % 0.0 Platelet Estimate VBG pH POC VBG pCO2 POC VBG pO2 Mixed VBG HCO3 Sodium 142 Potassium 3.8 Chloride 110 H Carbon Dioxide 23 Anion Gap 9 BUN 59 H Creatinine 2.0 H Creat Clearance w eGFR 31.62 Random Glucose 98 Lactic Acid 1.7 Calcium 8.3 L Phosphorus 4.3 Magnesium 2.0 Total Bilirubin 0.7 D AST 30 D ALT 19 D Alkaline Phosphatase 147 H D Troponin I B-Natriuretic Peptide Total Protein 5.8 L D Albumin 2.1 L Urine Color Urine Appearance Urine pH Ur Specific [place] Urine Protein Urine Glucose (UA) Urine Ketones Urine Blood Urine Nitrite Urine Bilirubin Urine Urobilinogen Ur Leukocyte Esterase Urine RBC Urine WBC Urine Bacteria Active Medications Generic Name Dose Route Start Last Admin Trade Name Freq PRN Reason Stop Dose Admin Acetaminophen 650 mg 03/01/17 18:52 Tylenol - PO Q6H PRN FEVER OR PAIN Albuterol Sulfate 1 amp 03/02/17 00:00 03/02/17 06:38 Ventolin 0.083% Nebulizer Soln - NEB 1 amp QIDR SAVANNAH Administration Aspirin 81 mg 03/02/17 10:00 03/02/17 10:43 Asa - PO 81 mg DAILY SAVANNAH Administration Donepezil HCl 10 mg 03/02/17 10:00 03/02/17 10:43 Aricept - PO 10 mg DAILY SAVANNAH Administration Heparin Sodium (Porcine) 5,000 unit 03/01/17 22:00 03/02/17 10:43 Heparin - SQ 5,000 unit BID SAVANNAH Administration Azithromycin 250 mg/ Dextrose 150 mls @ 150 mls/hr 03/02/17 22:00 IVPB 03/06/17 21:59 DAILY SAVANNAH CEFTRIAXONE 1 G/50 ML PREMIX 50 mls @ 100 mls/hr 03/01/17 22:00 03/01/17 21: 51 Ceftriaxone 1 Gm-D5w Bag IVPB 100 mls/hr HS SAVANNAH Administration Metoprolol Succinate 25 mg 03/02/17 10:00 03/02/17 10:43 Toprol Xl - PO 25 mg DAILY SAVANNAH Administration Quetiapine Fumarate 75 mg 03/01/17 22:00 03/02/17 00:13 Seroquel - PO 75 mg HS SAVANNAH Administration ASSESSMENT/PLAN: 1. Community aquired pneumonia - however can not exclude aspiration . Had a discussion with patients that he has poor oral intake, possibly difficulty swallowing . - for now continue CAP coverage with current antibiotics - Swallow evaluation 2. AFIB with RVR - resolved. Likely attributed to underlying pneumonia and CHF . Cardiology evaluation noted . Converted to sinus - on metorolol per cardiology - poor candidate for AC due to risk and history of falls 3.History CHF diastolic dysfunction - 07/05/2016 Echo: Normal LV size and fxn, tr -mild TR, mild , AR, abnl LV compliance 4. Malnutrition - poor PO intake as per family - will start supplements if tolerated passes swallow evaluation 5. Chronic renal insufficiency - stable - monitor CR Discussed with patients Visit type - Emergency Visit Emergency Visit: Yes ED Registration Date: 03/01/17 Care time: The patient presented to the Emergency Department on the above date and was hospitalized for further evaluation of their emergent condition. - New Patient This patient is new to me today: Yes Date on this admission: 03/02/17 - Critical Care Critical Care patient: No - Discharge Referral Referred to [facility] Med P.C.: No
--- NOTE | 2017-03-02 12:26 | PN ---
Progress Note, Physician Chief Complaint: Events note Lethargic History of Present Illness: Patient was seen and examined. Awake and alert. Chart was reviewed Does not appear to be in distress - Current Medication List Current Medications: Active Medications Acetaminophen (Tylenol -) 650 mg PO Q6H PRN PRN Reason: FEVER OR PAIN Albuterol Sulfate (Ventolin 0.083% Nebulizer Soln -) 1 amp NEB QIDR [facility] Last Admin: 03/02/17 06:38 Dose: 1 amp Aspirin (Asa -) 81 mg PO DAILY [facility] Last Admin: 03/02/17 10:43 Dose: 81 mg Donepezil HCl (Aricept -) 10 mg PO DAILY [facility] Last Admin: 03/02/17 10:43 Dose: 10 mg Heparin Sodium (Porcine) (Heparin -) 5,000 unit SQ BID [facility] Last Admin: 03/02/17 10:43 Dose: 5,000 unit Azithromycin 250 mg/ Dextrose 150 mls @ 150 mls/hr IVPB DAILY [facility] Stop: 03/06/17 21:59 CEFTRIAXONE 1 G/50 ML PREMIX (Ceftriaxone 1 Gm-D5w Bag) 50 mls @ 100 mls/hr IVPB HS [facility] Last Admin: 03/01/17 21:51 Dose: 100 mls/hr Metoprolol Succinate (Toprol Xl -) 25 mg PO DAILY [facility] Last Admin: 03/02/17 10:43 Dose: 25 mg Quetiapine Fumarate (Seroquel -) 75 mg PO HS [facility] Last Admin: 03/02/17 00:13 Dose: 75 mg - Objective Vital Signs: Vital Signs Temperature 99.0 F 03/02/17 06:00 Pulse Rate 70 03/02/17 06:00 Respiratory Rate 20 03/02/17 09:23 Blood Pressure 90/55 03/02/17 06:00 O2 Sat by Pulse Oximetry (%) 97 03/02/17 09:23 Eyes: Yes: PERRL HENT: Yes: Atraumatic Neck: Yes: Supple Cardiovascular: Yes: Regular Rate and Rhythm, S1, S2 Respiratory: Yes: Diminished Gastrointestinal: Yes: Normal Bowel Sounds, Soft. No: Tenderness Edema: No Labs: CBC, BMP 03/02/17 07:10 03/02/17 07:10 Problem List - Problems (1) A-fib Code(s): I48.91 - UNSPECIFIED ATRIAL FIBRILLATION Qualifiers: Atrial fibrillation type: paroxysmal Qualified Code(s): I48.0 - Paroxysmal atrial fibrillation (2) New onset atrial fibrillation Code(s): I48.91 - UNSPECIFIED ATRIAL FIBRILLATION (3) Lnuhn-dx-[id number] kidney injury Code(s): N17.9 - ACUTE KIDNEY FAILURE, UNSPECIFIED; N18.9 - CHRONIC KIDNEY DISEASE, UNSPECIFIED (4) Altered mental status Code(s): R41.82 - ALTERED MENTAL STATUS, UNSPECIFIED Qualifiers: Altered mental status type: disorientation Qualified Code(s): R41.0 - Disorientation, unspecified (5) Aortic stenosis, mild Code(s): I35.0 - NONRHEUMATIC AORTIC (VALVE) STENOSIS (6) CHF (congestive heart failure) Code(s): I50.9 - HEART FAILURE, UNSPECIFIED (7) Chronic kidney disease (CKD) Code(s): N18.9 - CHRONIC KIDNEY DISEASE, UNSPECIFIED Qualifiers: Chronic kidney disease stage: stage 3 (moderate) Qualified Code(s): N18.3 - Chronic kidney disease, stage 3 (moderate) Assessment/Plan 1. Acute on chronic diastolic failure 2. Paroxysmal atrial fibration with RVR now in sinus rhythm 3. RBBB 4. Mild aortic valve stenosis 5. CKD 6. History of HTN 7. History of fall with right hip fracture and subsequent repair 8. Dementia PLAN: 1. Diuresis and monitor on telemetry for recurrent arrhythmia 2. Continue Toprol XL 25 qd, ASA 81 qd, may not be ideal a/c candidate due to fall and dementia history 3. DVT and GI prophylaxis Further plans are to follow
[2017-03-02] MEDS ORDERED: PT OWN MED DRAWER 7, Y5N ONE (21:20)
[2017-03-02] MEDS: CEFTRIAXONE 1 G/50 ML PREMIX 50 ML IVPB SCH (21:23)
[2017-03-02] MEDS: WATER IVPB SCH (22:05)
[2017-03-02] MEDS: DEXTROSE 5% IVPB SCH (22:05)
[2017-03-02] MEDS: AZITHROMYCIN IVPB SCH (22:05)
[2017-03-03] MEDS: ALBUTEROL SO4 0.083% IH SOL 2.5 MG/3 ML VIAL.NEB. NEB SCH ×4 (00:15→17:13)
[2017-03-03 08:43] LABS: BASO % 0.1 % (0-2.0); MCH 30.5 pg (25.7-33.7); MCHC 31.8 g/dl (32.0-35.9); MEAN CELL VOLUME 95.9 fl (80-96); MEAN PLT VOLUME 9.9 fl (7.5-11.1); NEUT % 85.1 % (42.8-82.8); PLATELET COUNT 359 K/MM3 (134-434); WHITE BLOOD COUNT 10.9 K/mm3 (4.0-10.8)
[2017-03-03 09:06] LABS: ANION GAP 11 (8-16); CALCIUM 8.6 mg/dl (8.4-10.2); CO2 23 mmol/L (22-28); CREATININE 1.7 mg/dl (0.6-1.3); GLUCOSE,RANDOM 76 mg/dl (74-106)
[2017-03-03] MEDS ORDERED: PT OWN MED DRAWER 7, Y5N ONE (09:10)
[2017-03-03] MEDS ORDERED: SODIUM CHLORIDE 0.45% 1,000 ML IV SCH (09:30)
[2017-03-03] MEDS: METOPROLOL SUCCINATE 25 MG TAB.SR.24H (FP) PO SCH (10:00)
[2017-03-03] MEDS: AZITHROMYCIN IVPB SCH (10:00)
[2017-03-03] MEDS: DONEPEZIL HCL 10 MG TABLET (FP) PO SCH (10:00)
[2017-03-03] MEDS ORDERED: AZITHROMYCIN IVPB SCH (10:00)
[2017-03-03] MEDS: DEXTROSE 5% IVPB SCH (10:00)
[2017-03-03] MEDS ORDERED: DEXTROSE 5% IVPB SCH (10:00)
[2017-03-03] MEDS: WATER IVPB SCH (10:00)
[2017-03-03] MEDS ORDERED: WATER IVPB SCH (10:00)
[2017-03-03] MEDS: HEPARIN NA (PORCINE) 5,000 UNITS/ML 1ML VIAL SQ SCH ×2 (10:05→21:03)
[2017-03-03] MEDS ORDERED: HALOPERIDOL 0.5 MG TABLET PO PRN (10:56)
--- NOTE | 2017-03-03 12:03 | PN ---
Physical Exam: SUBJECTIVE: Patient seen and examined. Agitated, pulled out IV. Disoriented. OBJECTIVE: WBC down to 10.9. Culture ngtd. Vital Signs Period Temp Pulse Resp BP Sys/Ríos Pulse Ox Last 24 Hr 97.2 F-97.6 F 55-76 18-19 106-116/56-81 100-100 GENERAL: The patient is awake, alert, oriented to name only. Agitated. HEAD: Normal with no signs of trauma. EYES: PERRL, extraocular movements intact, sclera anicteric, conjunctiva clear. No ptosis. ENT: Ears normal, nares patent, oropharynx clear without exudates, moist mucous membranes. NECK: Trachea midline, full range of motion, supple. LUNGS: Breath sounds equal, clear to auscultation bilaterally, no wheezes, no crackles, no accessory muscle use. HEART: Regular rate and rhythm, S1, S2 without murmur, rub or gallop. ABDOMEN: Soft, nontender, nondistended, normoactive bowel sounds, no guarding, no rebound, no hepatosplenomegaly, no masses. EXTREMITIES: 2+ pulses, warm, well-perfused, no edema. NEUROLOGICAL: Cranial nerves II through XII grossly intact. Normal speech, gait not observed. PSYCH: Normal mood, normal affect. SKIN: Warm, dry, normal turgor, no rashes or lesions noted Laboratory Results - last 24 hr 03/03/17 03/03/17 07:00 07:00 WBC 10.9 H RBC 2.73 L Hgb 8.4 L Hct 26.2 L MCV 95.9 MCH 30.5 MCHC 31.8 L RDW 14.0 Plt Count 359 MPV 9.9 Neutrophils % 85.1 H Lymphocytes % 8.7 Monocytes % 4.1 Eosinophils % 2.0 D Basophils % 0.1 D Sodium 146 H Potassium 4.0 Chloride 112 H Carbon Dioxide 23 Anion Gap 11 BUN 45 H D Creatinine 1.7 H Random Glucose 76 D Calcium 8.6 Active Medications Generic Name Dose Route Start Last Admin Trade Name Freq PRN Reason Stop Dose Admin Acetaminophen 650 mg 03/01/17 18:52 Tylenol - PO Q6H PRN FEVER OR PAIN Albuterol Sulfate 1 amp 03/02/17 00:00 03/03/17 06:00 Ventolin 0.083% Nebulizer Soln - NEB 1 amp QIDR SAVANNAH Administration Aspirin 81 mg 03/02/17 10:00 03/02/17 10:43 Asa - PO 81 mg DAILY SAVANNAH Administration Donepezil HCl 10 mg 03/02/17 10:00 03/02/17 10:43 Aricept - PO 10 mg DAILY SAVANNAH Administration Haloperidol 0.5 mg 03/03/17 10:56 Haldol - PO TID PRN AGITATION Heparin Sodium (Porcine) 5,000 unit 03/01/17 22:00 03/02/17 21:23 Heparin - SQ 5,000 unit BID SAVANNAH Administration Azithromycin 250 mg/ Dextrose 150 mls @ 150 mls/hr 03/02/17 22:00 03/02/17 22 :05 IVPB 03/06/17 21:59 150 mls/hr DAILY SAVANNAH Administration CEFTRIAXONE 1 G/50 ML PREMIX 50 mls @ 100 mls/hr 03/01/17 22:00 03/02/17 21: 23 Ceftriaxone 1 Gm-D5w Bag IVPB 100 mls/hr HS SAVANNAH Administration Sodium Chloride 1,000 mls @ 83 mls/hr 03/03/17 09:30 1/2 Normal Saline IV 03/04/17 09:29 ASDIR SAVANNAH Metoprolol Succinate 25 mg 03/02/17 10:00 03/02/17 10:43 Toprol Xl - PO 25 mg DAILY SAVANNAH Administration Quetiapine Fumarate 75 mg 03/01/17 22:00 03/02/17 21:24 Seroquel - PO 75 mg HS SAVANNAH Administration Imaging: ASSESSMENT/PLAN: 89 year old male with dementia, htn, s/p fall with comminuted/ impacted IT fracture post right IM gamma nail, presented 03/01 with cough wheezing and weakness. 1. Sepsis 2/2 Bilateral pna - Continue Azithromycin/Ceftriaxone - Blood cultures ngtd - Trend WBC, fever curve (afebrile, WBC downtrending) 2. New on set Afib - Converted to sinus - Monitor on tele - Continue with toprol xl 25mg daily - ASA daily - ECHO from 06/2016 Normal LV size and fxn, tr-mild TR, mild , AR, abnl LV compliance - Cardiology consult reviewed 3. Acute on chronic diastolic failure - Likely due to above - Stopped fluids, encourage po intake 4. CKD - Appears at baseline - Monitor 5. Dementia - Continue seroquel/aricept - Add low dose haldol prn agitation, monitor QTc 6. H/o fall with right hip fracture and subsequent repair - No active issues 7. F/E/N - Hypernatremia: start 1/2 NS, follow closely 8. Ppx - Sqh - Daily PT DISPO: Requires inpatient services. Discussed with . Visit type - Emergency Visit Emergency Visit: Yes ED Registration Date: 03/01/17 Care time: The patient presented to the Emergency Department on the above date and was hospitalized for further evaluation of their emergent condition. - New Patient This patient is new to me today: Yes Date on this admission: 03/03/17 - Critical Care Critical Care patient: No - Discharge Referral Referred to [facility] Med P.C.: No
[2017-03-03] MEDS: ASPIRIN 81 MG CHEWABLE TABLETS PO SCH (17:09)
--- NOTE | 2017-03-03 17:37 | EKG ---
Test Reason : Blood Pressure : / mmHG Vent. Rate : 097 BPM Atrial Rate : 111 BPM P-R Int : 000 ms QRS Dur : 120 ms QT Int : 376 ms P-R-T Axes : 000 103 -54 degrees QTc Int : 477 ms POOR DATA QUALITY, INTERPRETATION MAY BE ADVERSELY AFFECTED UNDETERMINED RHYTHM due to baseline artifact POSSIBLE RIGHT BUNDLE BRANCH BLOCK T WAVE ABNORMALITY, CONSIDER INFERIOR ISCHEMIA ABNORMAL ECG WHEN COMPARED WITH ECG OF 05-FEB-2017 05:43, Accurate comparison cannot be made given poor ECG quality. Recommend repeat ECG. Confirmed by SANDEE NIETO MD ([id number]) on 03/03/2017 5:37:31 PM Referred By: MD MILNER Confirmed By:SANDEE NIETO MD
--- NOTE | 2017-03-03 17:39 | EKG ---
Test Reason : Blood Pressure : / mmHG Vent. Rate : 067 BPM Atrial Rate : 067 BPM P-R Int : 180 ms QRS Dur : 132 ms QT Int : 428 ms P-R-T Axes : 053 106 082 degrees QTc Int : 452 ms POOR DATA QUALITY, INTERPRETATION MAY BE ADVERSELY AFFECTED NORMAL SINUS RHYTHM RIGHT BUNDLE BRANCH BLOCK POSSIBLE LATERAL INFARCT ABNORMAL ECG WHEN COMPARED WITH ECG OF 01-MAR-2017 11:00, T wave abnormalities in inferior leads have resolved Confirmed by SANDEE NIETO MD ([id number]) on 03/03/2017 5:39:19 PM Referred By: MD MILNER Confirmed By:SANDEE NIETO MD
[2017-03-03] MEDS: CEFTRIAXONE 1 G/50 ML PREMIX 50 ML IVPB SCH (21:03)
[2017-03-03] MEDS: QUEtiapine FUMARATE 25 MG TABLET (FP) PO SCH (22:00)
[2017-03-04] MEDS: ALBUTEROL SO4 0.083% IH SOL 2.5 MG/3 ML VIAL.NEB. NEB SCH ×4 (00:04→17:08)
[2017-03-04 09:05] LABS: BASO % 0.3 % (0-2.0); EOS % 3.2 % (0-4.5); MCH 30.5 pg (25.7-33.7); MCHC 31.9 g/dl (32.0-35.9); MEAN CELL VOLUME 95.8 fl (80-96); MEAN PLT VOLUME 10.4 fl (7.5-11.1); NEUT % 77.4 % (42.8-82.8); PLATELET COUNT 398 K/MM3 (134-434); RDW 13.9 % (11.9-15.9); WHITE BLOOD COUNT 8.2 K/mm3 (4.0-10.8)
[2017-03-04 09:24] LABS: ANION GAP 12 (8-16); CALCIUM 8.5 mg/dl (8.4-10.2); CO2 21 mmol/L (22-28); CREATININE 1.5 mg/dl (0.6-1.3); GLUCOSE,RANDOM 84 mg/dl (74-106)
[2017-03-04] MEDS: AZITHROMYCIN IVPB 250 MG in DEXTROSE 5%-WATER - 250 ML IVPB SCH (09:48)
[2017-03-04] MEDS: HEPARIN NA (PORCINE) 5,000 UNITS/ML 1ML VIAL SQ SCH ×2 (09:48→21:51)
[2017-03-04] MEDS: DONEPEZIL HCL 10 MG TABLET (FP) PO SCH (09:48)
[2017-03-04] MEDS: METOPROLOL SUCCINATE 25 MG TAB.SR.24H (FP) PO SCH (09:48)
[2017-03-04] MEDS: ASPIRIN 81 MG CHEWABLE TABLETS PO SCH (09:48)
--- NOTE | 2017-03-04 09:59 | PN ---
Physical Exam: SUBJECTIVE: Patient seen and examined, confused appears comfortable, OBJECTIVE: patient 89 year old male with dementia, htn, s/p fall with comminuted/impacted IT fracture post right IM gamma nail, presented 03/01 with cough wheezing and weakness. Vital Signs Period Temp Pulse Resp BP Sys/Ríos Pulse Ox Last 24 Hr 97.4 F-98.7 F 65-75 18-19 128-142/62-67 94-100 GENERAL: thin, The patient is awake, alert, and oriented times person, in no acute distress. HEAD: Normal with no signs of trauma. EYES: PERRL, extraocular movements intact, sclera anicteric, conjunctiva clear. No ptosis. ENT: Ears normal, nares patent, oropharynx clear without exudates, moist mucous membranes. NECK: Trachea midline, full range of motion, supple. LUNGS: Breath sounds equal, clear to auscultation bilaterally, no wheezes, no crackles, no accessory muscle use. HEART: Regular rate and rhythm, S1, S2 without murmur, rub or gallop. ABDOMEN: Soft, nontender, nondistended, normoactive bowel sounds, no guarding, no rebound, no hepatosplenomegaly, no masses. EXTREMITIES: 2+ pulses, warm, well-perfused, no edema. 4 jamshid noted to the right lateral proximal thigh, no induration, no erythema noted NEUROLOGICAL: Cranial nerves II through XII grossly intact. Normal speech, gait not observed. PSYCH: Normal mood, normal affect. SKIN: Warm, dry, normal turgor, no rashes or lesions noted Laboratory Results - last 24 hr 03/04/17 03/04/17 07:42 07:42 WBC 8.2 RBC 2.66 L Hgb 8.1 L Hct 25.5 L MCV 95.8 MCH 30.5 MCHC 31.9 L RDW 13.9 Plt Count 398 MPV 10.4 Neutrophils % 77.4 Lymphocytes % 13.6 D Monocytes % 5.5 Eosinophils % 3.2 Basophils % 0.3 Sodium 144 Potassium 3.9 Chloride 111 H Carbon Dioxide 21 L Anion Gap 12 BUN 33 H D Creatinine 1.5 H Random Glucose 84 Calcium 8.5 Magnesium 2.0 Active Medications Generic Name Dose Route Start Last Admin Trade Name Freq PRN Reason Stop Dose Admin Acetaminophen 650 mg 03/01/17 18:52 Tylenol - PO Q6H PRN FEVER OR PAIN Albuterol Sulfate 1 amp 03/02/17 00:00 03/04/17 05:50 Ventolin 0.083% Nebulizer Soln - NEB 1 amp QIDR SAVANNAH Administration Aspirin 81 mg 03/02/17 10:00 03/04/17 09:48 Asa - PO 81 mg DAILY SAVANNAH Administration Donepezil HCl 10 mg 03/02/17 10:00 03/04/17 09:48 Aricept - PO 10 mg DAILY SAVANNAH Administration Haloperidol 0.5 mg 03/03/17 10:56 Haldol - PO TID PRN AGITATION Heparin Sodium (Porcine) 5,000 unit 03/01/17 22:00 03/04/17 09:48 Heparin - SQ 5,000 unit BID SAVANNAH Administration CEFTRIAXONE 1 G/50 ML PREMIX 50 mls @ 100 mls/hr 03/01/17 22:00 03/03/17 21: 03 Ceftriaxone 1 Gm-D5w Bag IVPB 100 mls/hr HS SAVANNAH Administration Azithromycin 250 mg/ Dextrose 250 mls @ 150 mls/hr 03/03/17 15:16 03/04/17 09 :48 IVPB 03/06/17 21:59 150 mls/hr DAILY SAVANNAH Administration Metoprolol Succinate 25 mg 03/02/17 10:00 03/04/17 09:48 Toprol Xl - PO 25 mg DAILY SAVANNAH Administration Quetiapine Fumarate 75 mg 03/01/17 22:00 03/03/17 22:00 Seroquel - PO 75 mg HS SAVANNAH Administration Microbiology 03/01/17 12:10 Blood - Peripheral Venous Blood Culture - Preliminary NO GROWTH OBTAINED AFTER 48 HOURS, INCUBATION TO CONTINUE FOR 3 DAYS. 03/01/17 12:20 Blood - Peripheral Venous Blood Culture - Preliminary NO GROWTH OBTAINED AFTER 48 HOURS, INCUBATION TO CONTINUE FOR 3 DAYS. 03/01/17 16:10 Urine - Urine Clean Catch Urine Culture - Final NO GROWTH OBTAINED ASSESSMENT/PLAN: 1. ID Sepsis resolved secondary to Bilateral pna - Continue Azithromycin/Ceftriaxone - Blood cultures ngtd, pending urine antigens - Trend WBC, fever curve (afebrile, WBC wnl) 2. cardiovascular paroxysmal (new on set Afib) - now NSR, no tele events noted on cardiac monitoring - Continue with toprol xl 25mg daily - ASA daily, not a good canditate for AC due to frequent falls and dementia - ECHO from 06/2016 Normal LV size and fxn, tr-mild TR, mild , AR, abnl LV compliance - Cardiology consulted and following Acute on chronic diastolic failure - patient is euvolemic on exam 4. nephrology CKD - creatine is 1.5 at baseline 5.neuro Dementia - Continue seroquel/aricept - low dose haldol prn agitation, monitor QTc 6.MS H/o fall with right hip fracture and subsequent repair - No active issues 7. F/E/N - Hypernatremia resolved malnutritions secondary to decreased caloric intake - bmi 15, requested speech and swallow eval - start prostat and ensure elive, appreciate dietary input 8. Ppx - Sqh - Daily PT DISPO: Requires inpatient services. Visit type - Emergency Visit Emergency Visit: Yes ED Registration Date: 03/01/17 Care time: The patient presented to the Emergency Department on the above date and was hospitalized for further evaluation of their emergent condition. - New Patient This patient is new to me today: No - Critical Care Critical Care patient: No - Discharge Referral Referred to [facility] Med P.C.: No
[2017-03-04] MEDS: LACTOBACILLUS ACIDOPHILUS 1 EACH TAB (FP) PO SCH (10:45)
--- NOTE | 2017-03-04 12:03 | CONSULT ---
Admitting History and Physical - Primary Care Physician PCP: Laura Gutiérrez - Admission History of Present Illness: Per EMR: 89 year old male with pmhx of HTN, dementia, s/p fall with comminuted/impacted IT fracture post right IM gamma nail, left rahel fractures, closed head trauma, chronic diarrhea, presented for cough wheezing and weakness. Information gathered via chart, pt is has severe dementia. He was found to be in new onset rapid afib and a pna. 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
--- NOTE | 2017-03-04 16:42 | CONSULT ---
Admitting History and Physical - Primary Care Physician PCP: Laura Gutiérrez - Admission History of Present Illness: Per EMR: 89 year old male with pmhx of HTN, dementia, s/p fall with comminuted/impacted IT fracture post right IM gamma nail, left rahel fractures, closed head trauma, chronic diarrhea, presented for cough wheezing and weakness. Information gathered via chart, pt is has severe dementia. He was found to be in new onset rapid afib and a pna. 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 Cardiovascular: Yes: CHF, HTN - Smoking History Smoking history: Never smoked Have you smoked in the past 12 months: No - Alcohol/Substance Use Hx Alcohol Use: No History - Admission Reason For Visit: PNEUMONIA/AFIB - Diagnostics X-ray: Report Reviewed (bilateral infiltrates) - General Mental Status: Awake and Alert, Able to Follow Commands, Combative (verbally), Confused Attention: Intact Ability to Follow Directions: Fair Head/Neck Control: Good - Hearing Hearing: Impaired Hearing Aide: No With Patient: No Speech Evaluation - Communication Primary Language: [place] Communication: Yes: Simple Responses - Speech Production Able to Make Needs Known: Yes: WNL Intelligibility: Yes: WNL - Speech Characteristics Voice Loudness: Normal Voice Phonatory-based Quality: Yes: Normal, Dysphonia, Vocal Wetness Speech Pattern: Normal Speech Clarity: < 100% Nasal Resonance: Normal Articulation: Yes: Precise - Language/Auditory Comprehension Follows: Yes: 1 Stage Simple Commands - Swallow Evaluation/Bedside Assessment Current Nutritional Intake: Regular, Thin Liquids Dentition: Yes: Missing Teeth Facial Symmetry at Rest: Symmetrical Facial Symmetry on Retraction: Symmetrical Against Resistance Opening: Normal Against Resistance Closing: Normal Pucker Lips: Normal Smile: Normal Lingual Movement: Normal, Symmetric Lingual Speed of Movement: Normal Lingual Movement Strgth Against Opposition: Normal Lingual Movement Characteristics: Normal Velopharyngeal Movement: Normal Laryngeal Movement: Reduced Excursion, Labored,delay initiation, Reduced Velocity Rate of Intake: Impulsive Labial Seal: WFL Chewing: Impaired Oral Prep Time: Increased A-P Transit: Impaired Pocketing: None Timing of Swallow: Delayed Coughing/Throat Clear: No Change in Voice: Yes (vocal wetness) Recommendations - Speech Evaluation, Impression/Plan Impression: Bilateral infiltrates. vocal wetness. r/o aspiration. Limited po acceptance, mostly if he feeds himself or sweets. - Dysphagia Impressions/Plan Swallowing Skills: Impaired Dysphagia Impressions: Mild Impairment, Moderate Impairment, Suspect Aspiration *Silent aspiration: cannot be R/O at bedside Dysphagia Treatment Plan: Small Bites, Chin Tuck/Down, Clear Pocket Food, 1/2 tsp. at a time, OOB for meals Recommendations: Modified Barium Swallow (if infiltrates persist, may benefit from a MBS, if pt will cooperate) - Recommendations Diet Consistency: Other (soft finger foods, eg crustless sandwiches with chopped tuna,egg,ch salad, cr cheese/jelly. muffins, cake,) Medication Administration: Crushed with applesauce Liquids: Orestes Thick Supplement: Magic Cup, Other (ensure compact)
[2017-03-04] MEDS: AMINO ACIDS/PROTEIN HYDROLYS 30 ML LIQUID.PKT PO SCH (17:08)
[2017-03-04] MEDS ORDERED: PT OWN MED DRAWER 7, Y5N ONE (21:33)
[2017-03-04] MEDS: QUEtiapine FUMARATE 25 MG TABLET (FP) PO SCH (21:51)
[2017-03-04] MEDS: CEFTRIAXONE 1 G/50 ML PREMIX 50 ML IVPB SCH (21:57)
[2017-03-05] MEDS: ALBUTEROL SO4 0.083% IH SOL 2.5 MG/3 ML VIAL.NEB. NEB SCH ×3 (00:05→11:28)
[2017-03-05 06:16] VITALS: BP 112/77; PULSE 70; TEMP 97.5
[2017-03-05 08:07] LABS: SERUM IRON 22 ug/dL (38-169); TOTAL IRON BINDING CAPACITY 200 ug/dL (250-450); UIBC 178 ug/dL (111-343)
[2017-03-05] MEDS ORDERED: PT OWN MED DRAWER 7, Y5N ONE (08:23)
[2017-03-05] MEDS: AMINO ACIDS/PROTEIN HYDROLYS 30 ML LIQUID.PKT PO SCH (08:35)
--- NOTE | 2017-03-05 09:02 | PN ---
Progress Note, Physician History of Present Illness: Attempted PT with walker assistance, remains in sinus rhythm, poor historian, anorexic. - Current Medication List Current Medications: Active Medications Acetaminophen (Tylenol -) 650 mg PO Q6H PRN PRN Reason: FEVER OR PAIN Albuterol Sulfate (Ventolin 0.083% Nebulizer Soln -) 1 amp NEB QIDR [facility] Last Admin: 03/05/17 05:46 Dose: 1 amp Amino Acids (Prosource No Carb Liquid Pkt) 30 ml PO BID@0800,1730 [facility] Last Admin: 03/04/17 17:08 Dose: 30 ml Aspirin (Asa -) 81 mg PO DAILY [facility] Last Admin: 03/04/17 09:48 Dose: 81 mg Donepezil HCl (Aricept -) 10 mg PO DAILY [facility] Last Admin: 03/04/17 09:48 Dose: 10 mg Ferrous Sulfate (Feosol -) 325 mg PO BID [facility] Haloperidol (Haldol -) 0.5 mg PO TID PRN PRN Reason: AGITATION Heparin Sodium (Porcine) (Heparin -) 5,000 unit SQ BID [facility] Last Admin: 03/04/17 21:51 Dose: 5,000 unit CEFTRIAXONE 1 G/50 ML PREMIX (Ceftriaxone 1 Gm-D5w Bag) 50 mls @ 100 mls/hr IVPB HS [facility] Last Admin: 03/04/17 21:57 Dose: 100 mls/hr Azithromycin 250 mg/ Dextrose 250 mls @ 150 mls/hr IVPB DAILY [facility] Stop: 03/06/17 21:59 Last Admin: 03/04/17 09:48 Dose: 150 mls/hr Lactobacillus Acidophilus (Bacid -) 1 tab PO DAILY [facility] Last Admin: 03/04/17 10:45 Dose: 1 tab Metoprolol Succinate (Toprol Xl -) 25 mg PO DAILY [facility] Last Admin: 03/04/17 09:48 Dose: 25 mg Quetiapine Fumarate (Seroquel -) 75 mg PO HS [facility] Last Admin: 03/04/17 21:51 Dose: 75 mg - Objective Vital Signs: Vital Signs Temperature 97.5 F L 03/05/17 06:00 Pulse Rate 70 03/05/17 06:00 Respiratory Rate 18 03/05/17 06:00 Blood Pressure 112/77 03/05/17 06:00 O2 Sat by Pulse Oximetry (%) 94 L 03/04/17 08:26 Constitutional: Yes: No Distress, Calm, Thin Neck: Yes: Supple Cardiovascular: Yes: Regular Rate and Rhythm Respiratory: Yes: Regular, Diminished Gastrointestinal: Yes: Normal Bowel Sounds, Soft Edema: No Labs: CBC, BMP 03/04/17 07:42 03/04/17 07:42 - ....Imaging EKG: Report Reviewed (Tele: NSR PVC) Problem List - Problems (1) Acute on chronic diastolic heart failure Code(s): I50.33 - ACUTE ON CHRONIC DIASTOLIC (CONGESTIVE) HEART FAILURE (2) Dementia Code(s): F03.90 - UNSPECIFIED DEMENTIA WITHOUT BEHAVIORAL DISTURBANCE Qualifiers: Dementia type: unspecified type (3) A-fib Code(s): I48.91 - UNSPECIFIED ATRIAL FIBRILLATION Qualifiers: Atrial fibrillation type: paroxysmal Qualified Code(s): I48.0 - Paroxysmal atrial fibrillation (4) Aortic stenosis, mild Code(s): I35.0 - NONRHEUMATIC AORTIC (VALVE) STENOSIS (5) Chronic kidney disease (CKD) Code(s): N18.9 - CHRONIC KIDNEY DISEASE, UNSPECIFIED Qualifiers: Chronic kidney disease stage: stage 3 (moderate) Qualified Code(s): N18.3 - Chronic kidney disease, stage 3 (moderate) (6) Right bundle branch block Code(s): I45.10 - UNSPECIFIED RIGHT BUNDLE-BRANCH BLOCK Assessment/Plan 1. Acute on chronic diastolic failure resolved 2. Paroxysmal atrial fibration with RVR now in sinus rhythm 3. RBBB 4. Mild aortic valve stenosis 5. CKD 6. History of HTN 7. History of fall with right hip fracture and subsequent repair 8. Dementia 9. ? PNA PLAN: 1. No recurrent arrhythmia on telemetry 2. Continue Toprol XL 25 qd, ASA 81 qd, may not be ideal a/c candidate due to fall and dementia history 3. DVT and GI prophylaxis 4. Complete empiric abx course
[2017-03-05] MEDS: LACTOBACILLUS ACIDOPHILUS 1 EACH TAB (FP) PO SCH (09:20)
[2017-03-05] MEDS: ASPIRIN 81 MG CHEWABLE TABLETS PO SCH (09:21)
[2017-03-05] MEDS: AZITHROMYCIN IVPB 250 MG in DEXTROSE 5%-WATER - 250 ML IVPB SCH (09:21)
[2017-03-05] MEDS: DONEPEZIL HCL 10 MG TABLET (FP) PO SCH (09:21)
[2017-03-05] MEDS: METOPROLOL SUCCINATE 25 MG TAB.SR.24H (FP) PO SCH (09:21)
[2017-03-05] MEDS: HEPARIN NA (PORCINE) 5,000 UNITS/ML 1ML VIAL SQ SCH (09:24)
[2017-03-05] MEDS ORDERED: FERROUS SO4 325 MG TABLET (FP) PO SCH (10:00)
--- NOTE | 2017-03-05 11:50 | DS ---
Physical Exam: SUBJECTIVE: Patient seen and examined, sitting in bed, confused appears comfortable. OBJECTIVE:This is an 89 year old male with pmhx of HTN, dementia, s/p fall with comminuted/impacted IT fracture post right IM gamma nail, left rahel fractures, closed head trauma, chronic diarrhea, presented for cough wheezing and weakness. Information gathered via chart, pt is has severe dementia. He was found to be in new onset rapid afib and a pna. In ED IV lopressor given and po metoprolol pt converted spontaneously to SR. Given zosyn x1 Currently, pt has no complaints, he is not wearing his oxygen and appears comfortable flat in bed. Vital Signs Period Temp Pulse Resp BP Sys/Ríos Pulse Ox Last 24 Hr 97.5 F-97.7 F 70-92 18-19 108-112/65-77 PHYSICAL EXAM GENERAL: thin, The patient is awake, alert, and oriented times person, in no acute distress. HEAD: Normal with no signs of trauma. EYES: PERRL, extraocular movements intact, sclera anicteric, conjunctiva clear. No ptosis. ENT: Ears normal, nares patent, oropharynx clear without exudates, moist mucous membranes. NECK: Trachea midline, full range of motion, supple. LUNGS: Breath sounds equal, clear to auscultation bilaterally, no wheezes, no crackles, no accessory muscle use. HEART: Regular rate and rhythm, S1, S2 without murmur, rub or gallop. ABDOMEN: Soft, nontender, nondistended, normoactive bowel sounds, no guarding, no rebound, no hepatosplenomegaly, no masses. EXTREMITIES: 2+ pulses, warm, well-perfused, no edema. jamshid removed from right lateral proximal thigh, no induration, no erythema noted, wound is well approximated. NEUROLOGICAL: Cranial nerves II through XII grossly intact. Normal speech, gait not observed. PSYCH: Normal mood, normal affect. SKIN: Warm, dry, normal turgor, no rashes or lesions noted LABS Laboratory Results - last 24 hr 03/03/17 07:00 Iron 22 L TIBC 200 L Iron Saturation 11 L CBC WBC 8.2 K/mm3 (4.0-10.8) 03/04/17 07:42 RBC 2.66 M/mm3 (4.00-5.60) L 03/04/17 07:42 Hgb 8.1 GM/dl (11.7-16.9) L 03/04/17 07:42 Hct 25.5 % (35.4-49) L 03/04/17 07:42 MCV 95.8 fl (80-96) 03/04/17 07:42 MCH 30.5 pg (25.7-33.7) 03/04/17 07:42 MCHC 31.9 g/dl (32.0-35.9) L 03/04/17 07:42 RDW 13.9 % (11.9-15.9) 03/04/17 07:42 Plt Count 398 K/MM3 (134-434) 03/04/17 07:42 MPV 10.4 fl (7.5-11.1) 03/04/17 07:42 Neutrophils % 77.4 % (42.8-82.8) 03/04/17 07:42 Neutrophils % (Manual) 92.0 % (42.8-82.8) H* 03/01/17 12:38 Band Neutrophils % 4.0 % (0-10) 03/01/17 12:38 Lymphocytes % 13.6 % (8-40) D 03/04/17 07:42 Lymphocytes % (Manual) 2.0 % (8-40) L 03/01/17 12:38 Monocytes % 5.5 % (3.8-10.2) 03/04/17 07:42 Monocytes % (Manual) 2 % (3.8-10.2) L 03/01/17 12:38 Eosinophils % 3.2 % (0-4.5) 03/04/17 07:42 Basophils % 0.3 % (0-2.0) 03/04/17 07:42 Platelet Estimate Slt increase 03/01/17 12:38 CMP Sodium 144 mmol/L (136-145) 03/04/17 07:42 Potassium 3.9 mmol/L (3.5-5.1) 03/04/17 07:42 Chloride 111 mmol/L (98-107) H 03/04/17 07:42 Carbon Dioxide 21 mmol/L (22-28) L 03/04/17 07:42 Anion Gap 12 (8-16) 03/04/17 07:42 BUN 33 mg/dl (7-18) H D 03/04/17 07:42 Creatinine 1.5 mg/dl (0.6-1.3) H 03/04/17 07:42 Creat Clearance w eGFR 31.62 (>60) 03/02/17 07:10 Random Glucose 84 mg/dl (74-106) 03/04/17 07:42 Lactic Acid 1.7 mmol/L (0.4-2.0) 03/01/17 20:25 Calcium 8.5 mg/dl (8.4-10.2) 03/04/17 07:42 Phosphorus 4.3 mg/dl (2.5-4.6) 03/02/17 07:10 Magnesium 2.0 mg/dL (1.8-2.4) 03/04/17 07:42 Iron 22 ug/dL (38-169) L 03/03/17 07:00 TIBC 200 ug/dL (250-450) L 03/03/17 07:00 Iron Saturation 11 % (15-55) L 03/03/17 07:00 Total Bilirubin 0.7 mg/dl (0.2-1.0) D 03/02/17 07:10 AST 30 U/L (10-42) D 03/02/17 07:10 ALT 19 U/L (10-40) D 03/02/17 07:10 Alkaline Phosphatase 147 U/L (32-92) H D 03/02/17 07:10 Troponin I 0.03 ng/ml (0.00-0.05) 03/01/17 15:49 B-Natriuretic Peptide 3380.70 pg/ml (5-450) H 03/01/17 12:00 Total Protein 5.8 g/dl (6.4-8.3) L D 03/02/17 07:10 Albumin 2.1 g/dl (3.5-5.0) L 03/02/17 07:10 Microbiology 03/05/17 06:00 Urine For Antigen Detection Legionella Antigen - Final, negative 03/05/17 06:00 Urine For Antigen Detection Streptococcus pneumoniae Antigen (M - Final, negative 03/01/17 12:10 Blood - Peripheral Venous Blood Culture - Preliminary NO GROWTH OBTAINED AFTER 72 HOURS, INCUBATION TO CONTINUE FOR 2 DAYS. 03/01/17 12:20 Blood - Peripheral Venous Blood Culture - Preliminary NO GROWTH OBTAINED AFTER 72 HOURS, INCUBATION TO CONTINUE FOR 2 DAYS. 03/01/17 16:10 Urine - Urine Clean Catch Urine Culture - Final NO GROWTH OBTAINED HOSPITAL COURSE: * Sepsis resolved secondary to Bilateral pna, treated with Azithromycin/ Ceftriaxone (03/01-03/05) discharged, Blood cultures ntd, urine antigens negative. leukocytosis resolved and patient is afebrile. * paroxysmal (new on set Afib), now NSR, no tele events noted on cardiac monitoring, continued toprol xl 25mg daily, ASA daily, not a good candidate for AC due to frequent falls and dementia, ECHO from 06/2016 Normal LV size and fxn , tr-mild TR, mild , AR, abnl LV compliance, Cardiology, Dr Rothman, consulted and following. * chronic diastolic failure, patient is euvolemic on exam * CKD, creatine is 1.5 at baseline * dementia, Continue seroquel/aricept, low dose haldol prn agitation, monitor QTc. * H/o fall with right hip fracture and subsequent repair, No active issues, discussed with Dr Matias, ortho, agreed with removal of jamshid to right lateral thigh, 4 jamshid removed, no erythema noted, wound is well approximated. PLAN - discussed with son, declines SNF placement, son reports patient has 24 hours of private duty nursing, prefers father discharged with [facility]NS - ceftin 500mg daily for 7 days - return precautions reviewed Date of Admission:03/01/17 Date of Discharge: 03/05/17 Minutes to complete discharge: 45 Discharge Summary Reason For Visit: PNEUMONIA/AFIB Current Active Problems A-fib (Acute) Acute on chronic diastolic heart failure (Acute) Dementia (Acute) New onset atrial fibrillation (Acute) Pneumonia (Acute) Sepsis (Acute) Condition: Improved - Instructions Diet, Activity, Other Instructions: you were admitted to the hospital for pneumonia and paroxysmal afib resume regular low sodium diet continue ceftin antibiotic daily for the next 7 days, please take antibiotic with food continue iron supplements daily continue lopressor daily please follow up with your flash developer Dr Schofield within 1 week if any new or persistent symptoms develop please return to the emergency department Referrals: Devon Schofield MD [Primary Care Provider] - Disposition: VNS/HOME HEALTH CARE - Home Medications Comprehensive Discharge Medication List: Ambulatory Orders Quetiapine Fumarate [Seroquel -] 75 mg PO HS 10/09/16 Acetaminophen [Tylenol .Regular Strength -] 650 mg PO Q4H PRN tablet 02/07/17 Donepezil HCl [Aricept] 10 mg PO DAILY 03/01/17 This patient is new to me today: No Emergency Visit: Yes ED Registration Date: 03/01/17 Care time: The patient presented to the Emergency Department on the above date and was hospitalized for further evaluation of their emergent condition. Critical Care patient: No - Discharge Referral Referred to [facility] Med P.C.: No
== END 2017-03-05 13:51 | disposition home health service (06) | DRG 871 ==
LOC: SUPCPDRO 10:30 → FER 10:30 → FM/S 22:42
PROVIDERS: ADMIT Internal Medicine; ATTEND Nurse Practitioner Family
DX: A41.89 Other specified sepsis (principal); I50.33 Acute on chronic diastolic (congestive) heart failure; J18.9 Pneumonia, unspecified organism; I13.0 Hypertensive heart and chronic kidney disease with heart failure and stage 1 through stage 4 chronic kidney disease, or unspecified chronic kidney disease; N17.9 Acute kidney failure, unspecified; E87.0 Hyperosmolality and hypernatremia; E46 Unspecified protein-calorie malnutrition; Z68.1 Body mass index [BMI] 19.9 or less, adult; R41.0 Disorientation, unspecified; D72.828 Other elevated white blood cell count; F03.90 Unspecified dementia, unspecified severity, without behavioral disturbance, psychotic disturbance, mood disturbance, and anxiety; I10 Essential (primary) hypertension; I48.0 Paroxysmal atrial fibrillation; I35.0 Nonrheumatic aortic (valve) stenosis; I45.19 Other right bundle-branch block; N18.3 Chronic kidney disease, stage 3 (moderate)
CPT/HCPCS: 36415; 71010-TC; 80048; 80053; 81003; 81015; 82803; 83540; 83550; 83605; 83735; 83880; 84100; 84484; 85025; 87040; 87086; 87899; 93005; 94010; 94640; 97116-GP; 97162-GP; 99285-25; J1644